=== PATIENT | female | born 1985 | race African-American/Black ===

== ENCOUNTER 2016-07-12 09:21 | Inpatient (IN) | payer OTHER ==
[~2016-07-12] VITALS: Ht 172.7 cm; Wt 113.8 kg
[~2016-07-12 09:21] MED LIST: BENZ1TAB PO; CHLO200T5 PO; CLOZ100 PO; DIPH50CA PO; DIVA250T PO; DIVA500T PO; DOCU100T9 PO; LEVO10%S PO; MIRA33504 PO; MIRTA15 PO; PRAZ2CAP PO; PROP20TA3 PO
[2016-07-12 09:27] VITALS: BP 112/75; PULSE 120; RESP 16; TEMP 98.7; O2SAT 98
[2016-07-12] MEDS ORDERED: OLANZapine ODT 10 MG TAB PO ONE (09:45)
--- NOTE | 2016-07-12 09:47 | PD ---
HPI Chief Complaint: Psychiatric Symptoms Time Seen by Provider: 09:31 Travel History International Travel<30 days: No Contact w/Intl Traveler<30days: No Traveled to known affect area: No History of Present Illness HPI Patient is a 31-year-old female with history of paranoid schizophrenia who presents the emergency department via EMS for increasing delusions. Patient states that she has been having increasing auditory hallucinations over the course the last week, particularly bad overnight. Voices are very clear command hallucinations that tell her to pick her face off and an attempt to kill herself. Patient has been scratching the right side of her face overnight and presents with excoriations. She is on multiple medications at her living facility, states she's been compliant with these but none of them are helping. Patient denies any homicidal ideations. No visual hallucinations. PFSH Past Medical History Heart Rhythm Problems: Yes Cancer: No (per last month) Cardiovascular Problems: No (per last month ) Diabetes: No (per last month ) Genitourinary: No Headaches: No (per last month) Musculoskeletal: No Neurologic: No Psychiatric: Yes Reproductive: No Respiratory: No Schizophrenia: Yes Seizures: No (per last month) Tetanus Vaccination: Unknown ?: Unknown Past Surgical History Other Surgery: No Social History Alcohol Use: No Tobacco Use: No Substance Use: No Allergies-Medications (Allergen,Severity, Reaction): Coded Allergies: No Known Allergies (Unverified , 07/12/16) Reported Meds & Prescriptions Reported Meds & Active Scripts Active Mirtazapine 15 Mg Tab 45 Mg PO HS 15 Days Propranolol (Propranolol HCl) 20 Mg Tab 20 Mg PO Q12HR [address] (Divalproex Sodium) 250 Mg Tabdr 250 Mg PO BID [address] (Divalproex Sodium) 500 Mg Tabdr 500 Mg PO BID 15 Days Diphenhydramine HCl 50 Mg Cap 50 Mg PO HS 15 Days Reported Clozaril (Clozapine) 100 Mg Tab 100 Mg PO BID Chlorpromazine (Chlorpromazine HCl) 200 Mg Tab 200 Mg PO BID (1200, 1600) Chlorpromazine (Chlorpromazine HCl) 200 Mg Tab 300 Mg PO BID (0800, 2000) Docusate Sodium 100 Mg Tab 200 Mg PO BID Prazosin (Prazosin HCl) 2 Mg Cap 2 Mg PO HS Miralax Powder (Polyethylene Glycol 3350 Powder) 17 Gm Powd 17 Gm PO DAILY Mix and dissolve one measuring cap-ful (17 grams) in water or juice. Benztropine (Benztropine Mesylate) 1 Mg Tab 1 Mg PO BID (0800,1600) Review of Systems ROS Limitations: Psychotic, Poor Historian Except as stated in HPI: all other systems reviewed are Neg Physical Exam Exam Limitations: Poor Historian, Psychotic Narrative GENERAL: After [place] female in no acute distress SKIN: Warm. Excoriations on the right side of the face. HEAD: Atraumatic. Normocephalic. EYES: Pupils equal and round. No scleral icterus. No injection or drainage. ENT: No nasal bleeding or discharge. Mucous membranes pink and moist. NECK: Supple CARDIOVASCULAR: Tachycardic with heart rate in the 110s to 120s, regular rhythm. No murmur appreciated. RESPIRATORY: No accessory muscle use. Clear to auscultation. Breath sounds equal bilaterally. GASTROINTESTINAL: Abdomen soft, non-tender, nondistended. MUSCULOSKELETAL: Moves all extremities normally NEUROLOGICAL: Awake and alert. Motor grossly within normal limits. Normal speech. PSYCHIATRIC: Blunted mood, poor eye contact. Obviously responding to internal stimuli, looking around the room. Speaks very softly. Admits to auditory hallucinations with demand hallucinations to cut and/or scrape off her face. Data Data Last Documented VS Vital Signs Date Time Temp Pulse Resp B/P Pulse Ox O2 Delivery O2 Flow Rate FiO2 07/12/16 10:10 98.9 126 18 120/81 100 Room Air Orders Complete Blood Count With Diff (07/12/16 09:31) Comprehensive Metabolic Panel (07/12/16 09:31) Valproic Acid (Depakene) (07/12/16 09:31) Psych Screen (07/12/16 09:31) Drug Screen, Random Urine (07/12/16 09:31) Ammonia (07/12/16 09:31) Olanzapine Odt (Zyprexa Zydis Odt) (07/12/16 09:45) Electrocardiogram (07/12/16 ) Diet Regular Basic (07/12/16 Lunch) Haloperidol Inj (Haldol Inj) (07/12/16 10:45) Lorazepam Inj (Ativan Inj) (07/12/16 10:45) Diphenhydramine Inj (Benadryl Inj) (07/12/16 10:45) Restraints Violent (07/12/16 10:49) Diet Regular Basic (07/12/16 Dinner) Labs Laboratory Tests Test 07/12/16 07/12/16 12:57 12:59 White Blood Count 7.0 TH/MM3 Red Blood Count 4.75 MIL/MM3 Hemoglobin 13.0 GM/DL Hematocrit 39.6 % Mean Corpuscular Volume 83.4 FL Mean Corpuscular Hemoglobin 27.4 PG Mean Corpuscular Hemoglobin 32.8 % Concent Red Cell Distribution Width 14.6 % Platelet Count 214 TH/MM3 Mean Platelet Volume 9.2 FL Neutrophils (%) (Auto) 60.5 % Lymphocytes (%) (Auto) 31.4 % Monocytes (%) (Auto) 7.7 % Eosinophils (%) (Auto) 0.0 % Basophils (%) (Auto) 0.4 % Neutrophils # (Auto) 4.2 TH/MM3 Lymphocytes # (Auto) 2.2 TH/MM3 Monocytes # (Auto) 0.5 TH/MM3 Eosinophils # (Auto) 0.0 TH/MM3 Basophils # (Auto) 0.0 TH/MM3 CBC Comment DIFF FINAL Differential Comment Sodium Level 141 MEQ/L Potassium Level 4.0 MEQ/L Chloride Level 106 MEQ/L Carbon Dioxide Level 24.4 MEQ/L Anion Gap 11 MEQ/L Blood Urea Nitrogen 3 MG/DL Creatinine 0.73 MG/DL Estimat Glomerular Filtration 113 ML/MIN Rate Random Glucose 76 MG/DL Calcium Level 9.1 MG/DL Total Bilirubin 0.3 MG/DL Aspartate Amino Transf 9 U/L (AST/SGOT) Alanine Aminotransferase 15 U/L (ALT/SGPT) Alkaline Phosphatase 73 U/L Total Protein 7.6 GM/DL Albumin 3.9 GM/DL Valproic Acid (Depakene) Level 59 MCG/ML Ammonia 32 MCMOL/L [facility] Medical Decision Making Medical Screen Exam Complete: Yes Emergency Medical Condition: Yes Medical Record Reviewed: Yes Differential Diagnosis 31-year-old female with history of paranoid schizophrenia here with complaint of increasing delusions, suicidal ideation. Differential includes schizophrenia , depression, suicidal ideation, substance induced mood disorder, medication nonadherence. Narrative Course Patient placed on monitor, IV established and blood obtained. Twelve-lead EKG shows sinus tachycardia, rate [address] or T-wave abnormalities and normal intervals. Patient has history of tachycardia and takes propranolol for this. Patient was placed under Martinez act by myself as she is made not to attempt to leave our emergency department. 10 mg oral zydis ordered. Patient took this but did not have any benefit and became agitated, combative, hitting herself and staff and was placed on physical and chemical restraint with Haldol 2 mg, Ativan 2 mg, Benadryl 50 mg IM. CBC, CMP, Depakote level, ammonia level obtained and unremarkable. Urine drugs remains pending. Patient had good response the above sedation was medically clear for psychiatric admission. Critical Care Narrative Aggregate critical care time was 45 minutes. Time to perform other separately billable procedures was not included in the critical care time. My time did not include minutes spent treating any other patients simultaneously or on activities that did not directly contribute to the patient's treatment. The services I provided to this patient were to treat and/or prevent clinically significant deterioration that could result in: Agitation, danger to self or others, need for chemical and physical restraint. I provided critical care services requiring my management, as noted below: Chart data review, documentation time, medication orders and management, vital sign assessments/reviewing monitor data, ordering and reviewing lab tests, ordering and interpreting/reviewing x-rays and diagnostic studies, care of the patient and discussion of the patient with the admitting physicians. Diagnosis Primary Impression: Schizophrenia Qualified Code: F20.0 - Paranoid schizophrenia Admitting Information Admitting Physician Requests: Admit Ana Rodriguez MD Jul 12, 2016 09:47
[2016-07-12 10:10] VITALS: BP 120/81; PULSE 126; RESP 18; TEMP 98.9; O2SAT 100
[2016-07-12] MEDS ORDERED: HALOPERIDOL LACTATE 5 MG/ML AMP IM ONE (10:45)
[2016-07-12] MEDS ORDERED: LORazepam 2 MG/ML VIAL IM ONE (10:45)
[2016-07-12] MEDS ORDERED: diphenhydrAMINE HCL 50 MG/ML VIAL IM ONE (10:45)
[2016-07-12] MEDS ORDERED: CLOZ100 PO (11:45)
[2016-07-12 13:13] LABS: AUTOMATED NEUTROPHIL # 4.2 TH/MM3 (1.8-7.7); BASOPHIL % 0.4 % (0.0-2.0); HEMATOCRIT 39.6 % (35.0-46.0); HEMO FLAGS DIFF FINAL; LYMPH % 31.4 % (9.0-44.0); LYMPHOCYTE # 2.2 TH/MM3 (1.0-4.8); MEAN CELL VOLUME 83.4 FL (80.0-100.0); MEAN CORPUSCULAR HEMOGLOBIN 27.4 PG (27.0-34.0); MEAN CORPUSCULAR HGB CONC 32.8 % (32.0-36.0); MONO % 7.7 % (0.0-8.0); NEUT % 60.5 % (16.0-70.0); PLATELET COUNT 214 TH/MM3 (150-450); RED BLOOD COUNT 4.75 MIL/MM3 (4.00-5.30); RED CELL DISTRIBUTION WIDTH 14.6 % (11.6-17.2)
[2016-07-12 13:28] LABS: AMPHETAMINE, URINE NEG (NEG); BARBITURATES, URINE NEG (NEG); COCAINE, URINE NEG (NEG)
[2016-07-12 13:38] LABS: ALT (GPT) 15 U/L (10-53); ANION GAP 11 MEQ/L (5-15); AST (GOT) 9 U/L (15-37); BICARBONATE 24.4 MEQ/L (21.0-32.0); BLOOD UREA NITROGEN 3 MG/DL (7-18); CHLORIDE 106 MEQ/L (98-107); GLOMERULAR FILTRATION RATE 113 ML/MIN (>89); SODIUM (NA) 141 MEQ/L (136-145)
[2016-07-12 13:40] LABS: ALKALINE PHOSPHATASE 73 U/L (45-117); TOTAL BILIRUBIN ADULT 0.3 MG/DL (0.2-1.0)
[2016-07-12] MEDS ORDERED: MAGNESIUM HYDROXIDE SUSP 30 ML CUP PO PRN (16:15)
[2016-07-12] MEDS ORDERED: ALUMINUM/MAGNESIUM/SIMETH 30 ML CUP PO PRN (16:15)
[2016-07-12] MEDS ORDERED: diphenhydrAMINE HCL 50 MG CAP - HS PRN PO (16:15)
--- NOTE | 2016-07-12 17:11 | EKG ---
Date Performed: 07/12/2016 Time Performed: 09:38:10 PTAGE: 31 years EKG: SINUS TACHYCARDIA NONSPECIFIC T-WAVE ABNORMALITY ABNORMAL RHYTHM ECG Compared to PREVIOUS TRACING , nonspecific T-wave changes are now present. PREVIOUS TRACIN04/14/20 16 10.41 DOCTOR: Moshe Smith Interpretating Date/Time 07/12/2016 17:11:05
[2016-07-12 18:29] VITALS: BP 127/93; PULSE 107; RESP 18; TEMP 98.6; O2SAT 96
[2016-07-12] MEDS: DIVALPROEX DR 500 MG TABEC PO SCH (20:09)
[2016-07-12] MEDS: REMOVE OLD NICOTINE PATCH T-DERMAL SCH (20:11)
[2016-07-12] MEDS ORDERED: diphenhydrAMINE HCL 50 MG/ML VIAL - HS PRN IM (20:45)
[2016-07-12] MEDS ORDERED: BENZTROPINE MESYLATE 1 MG TAB PO SCH (21:00)
[2016-07-12] MEDS ORDERED: MIRTAZAPINE 15 MG TAB PO SCH (21:00)
[2016-07-12] MEDS ORDERED: PROPRANOLOL HCL 20 MG TAB PO SCH (21:00)
[2016-07-12] MEDS ORDERED: ACETAMINOPHEN 325 MG TAB PO PRN (21:00)
[2016-07-12] MEDS ORDERED: DIVALPROEX SODIUM E.R. 250 MG TAB PO SCH (21:00)
[2016-07-12] MEDS ORDERED: DOCUSATE SODIUM 100 MG CAP PO SCH (21:00)
[2016-07-12] MEDS ORDERED: diphenhydrAMINE HCL 50 MG CAP PO SCH (21:00)
[2016-07-12] MEDS ORDERED: cloZAPine 100 MG TAB PO SCH (21:00)
[2016-07-12] MEDS ORDERED: PRAZOSIN HCL 2 MG CAP PO SCH (21:00)
[2016-07-12] MEDS ORDERED: DOCUSATE SODIUM 100 MG CAP PO ONE (21:15)
[2016-07-13] MEDS: LORazepam 1 MG TAB PO PRN ×2 (01:45→10:31)
[2016-07-13 06:09] VITALS: BP 118/77; PULSE 112; RESP 20; TEMP 98.7; O2SAT 97
[2016-07-13] MEDS ORDERED: BENZTROPINE MESYLATE 1 MG TAB PO SCH (08:00)
[2016-07-13] MEDS ORDERED: MAGNESIUM HYDROXIDE SUSP 30 ML CUP PO PRN (08:15)
[2016-07-13 08:30] LABS: ANION GAP 11 MEQ/L (5-15); CHLORIDE 106 MEQ/L (98-107); GLOMERULAR FILTRATION RATE 98 ML/MIN (>89); POTASSIUM 3.6 MEQ/L (3.5-5.1); SODIUM (NA) 141 MEQ/L (136-145)
[2016-07-13] MEDS: DIVALPROEX DR 500 MG TABEC PO SCH ×2 (08:34→20:13)
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
[2016-07-13] MEDS: BENZTROPINE MESYLATE 1 MG TAB PO SCH ×2 (08:38→20:11)
[2016-07-13] MEDS: POLYETHYLENE GLYCOL 17 GM PKG PO SCH (08:39)
[2016-07-13] MEDS: PROPRANOLOL HCL 20 MG TAB PO SCH ×2 (08:39→20:13)
[2016-07-13 08:55] LABS: BLOOD UREA NITROGEN 6 MG/DL (7-18); HDL CHOLESTEROL 57.1 MG/DL (40.0-60.0); LDL CHOLESTEROL 36 MG/DL (0-99)
[2016-07-13] MEDS: NICOTINE 21 MG/24 HR PATCH T-DERMAL SCH (08:55)
[2016-07-13] MEDS: DOCUSATE SODIUM 100 MG CAP PO SCH ×2 (09:00→20:12)
[2016-07-13] MEDS ORDERED: DIVALPROEX DR 500 MG TABEC PO SCH ×2 (09:00)
[2016-07-13] MEDS ORDERED: POLYETHYLENE GLYCOL 17 GM PKG PO SCH (09:00)
[2016-07-13] MEDS ORDERED: DOCUSATE SODIUM 100 MG CAP PO SCH (09:00)
[2016-07-13] MEDS ORDERED: DIVALPROEX SODIUM DELAYED RELEASE 250 MG TAB PO SCH ×2 (09:00)
[2016-07-13] MEDS ORDERED: DIVALPROEX SODIUM DELAYED RELEASE 250 MG TAB PO ONE (09:00)
[2016-07-13] MEDS: cloZAPine 100 MG TAB PO SCH ×2 (09:40→20:12)
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
[2016-07-13 12:17] LABS: BASOPHIL % 0.5 % (0.0-2.0); HEMATOCRIT 38.3 % (35.0-46.0); HEMO FLAGS DIFF FINAL; LYMPH % 45.9 % (9.0-44.0); LYMPHOCYTE # 3.2 TH/MM3 (1.0-4.8); MEAN CELL VOLUME 84.1 FL (80.0-100.0); MEAN CORPUSCULAR HEMOGLOBIN 27.3 PG (27.0-34.0); MEAN CORPUSCULAR HGB CONC 32.5 % (32.0-36.0); MONO % 9.5 % (0.0-8.0); NEUT % 44.1 % (16.0-70.0); PLATELET COUNT 213 TH/MM3 (150-450); RED BLOOD COUNT 4.56 MIL/MM3 (4.00-5.30); RED CELL DISTRIBUTION WIDTH 14.9 % (11.6-17.2); WHITE BLOOD COUNT 6.9 TH/MM3 (4.0-11.0)
[2016-07-13 13:44] LABS: HEMOGLOBIN A1a 1.2 %; HEMOGLOBIN A1b 0.9 %; HEMOGLOBIN Ao 86.2 %; HEMOGLOBIN F 1.1 %; HEMOGLOBIN LA1C 1.9 %; HEMOGLOBIN P3 3.4 %
[2016-07-13 15:23] VITALS: BP 124/75; PULSE 96; RESP 18; TEMP 98.1; O2SAT 98
--- NOTE | 2016-07-13 17:15 | HHI.PR ---
Blank section for building attempted to see patient for consult- she was unavailable as she was in the shower- plan to see tomorrow. Tachycardia Continue propranolol ordered echocardiogram due to long standing tachycardia to r/o tachycardia induced cardiomyopathy Discussed with nursing Written by Harriett العلي, acting as scribe for Dr. Beverly on 07/13/16 at 17: 15. (Harriett العلي) Harriett العلي Jul 13, 2016 17:15 Mayito Beverly DO Jul 14, 2016 00:14
[2016-07-13] MEDS: MIRTAZAPINE 15 MG TAB PO SCH (20:12)
[2016-07-13] MEDS: diphenhydrAMINE HCL 50 MG CAP PO SCH (20:12)
[2016-07-13] MEDS: REMOVE OLD NICOTINE PATCH T-DERMAL SCH (20:17)
[2016-07-13] MEDS ORDERED: PRAZOSIN HCL 2 MG CAP PO SCH (21:00)
[2016-07-14 06:53] VITALS: BP 119/78; PULSE 99; RESP 17; TEMP 98.1; O2SAT 99
[2016-07-14 07:51] LABS: AUTOMATED NEUTROPHIL # 2.2 TH/MM3 (1.8-7.7); BASOPHIL % 0.2 % (0.0-2.0); HEMATOCRIT 35.2 % (35.0-46.0); HEMO FLAGS DIFF FINAL; LYMPHOCYTE # 3.8 TH/MM3 (1.0-4.8); MEAN CELL VOLUME 83.6 FL (80.0-100.0); MEAN CORPUSCULAR HEMOGLOBIN 26.7 PG (27.0-34.0); MEAN CORPUSCULAR HGB CONC 31.9 % (32.0-36.0); MONO % 10.7 % (0.0-8.0); NEUT % 33.1 % (16.0-70.0); PLATELET COUNT 211 TH/MM3 (150-450); RED CELL DISTRIBUTION WIDTH 14.4 % (11.6-17.2); WHITE BLOOD COUNT 6.8 TH/MM3 (4.0-11.0)
[2016-07-14] MEDS: POLYETHYLENE GLYCOL 17 GM PKG PO SCH ×2 (08:07→08:12)
[2016-07-14] MEDS: PROPRANOLOL HCL 20 MG TAB PO SCH ×2 (08:07→20:09)
[2016-07-14] MEDS: BENZTROPINE MESYLATE 1 MG TAB PO SCH ×2 (08:07→20:08)
[2016-07-14] MEDS: DOCUSATE SODIUM 100 MG CAP PO SCH ×2 (08:08→20:09)
[2016-07-14] MEDS: cloZAPine 100 MG TAB PO SCH ×2 (08:08→20:08)
[2016-07-14] MEDS: NICOTINE 21 MG/24 HR PATCH T-DERMAL SCH (08:09)
[2016-07-14] MEDS: DIVALPROEX SODIUM DELAYED RELEASE 250 MG TAB PO SCH (08:10)
[2016-07-14 08:28] LABS: FREE T4 0.84 NG/DL (0.76-1.46)
--- NOTE | 2016-07-14 12:10 | HHI.PYPN ---
Subjective Remarks Patient appears to have a very restricted affect and is completely nonverbal with this physician. She appears to be responding to internal stimuli. Due to her history of self-injurious behavior, this physician is concerned about her potential for self-harm at this point. Review of Systems Except as stated in HPI: all other systems reviewed are Neg Objective Alert: Yes [place]: Person Mood: Calm Affect: Restricted Memory Intact: Immediate Hallucinations: Auditory Delusions: Yes Delusion Type: Paranoid Suicidal: Ideation Homicidal: Ideation Insight/Judgement Significantly impaired. Labs Test 07/14/16 07:09 White Blood Count 6.8 TH/MM3 Red Blood Count 4.20 MIL/MM3 Hemoglobin 11.2 GM/DL Hematocrit 35.2 % Mean Corpuscular Volume 83.6 FL Mean Corpuscular Hemoglobin 26.7 PG Mean Corpuscular Hemoglobin 31.9 % Concent Red Cell Distribution Width 14.4 % Platelet Count 211 TH/MM3 Mean Platelet Volume 9.1 FL Neutrophils (%) (Auto) 33.1 % Lymphocytes (%) (Auto) 56.0 % Monocytes (%) (Auto) 10.7 % Eosinophils (%) (Auto) 0.0 % Basophils (%) (Auto) 0.2 % Neutrophils # (Auto) 2.2 TH/MM3 Lymphocytes # (Auto) 3.8 TH/MM3 Monocytes # (Auto) 0.7 TH/MM3 Eosinophils # (Auto) 0.0 TH/MM3 Basophils # (Auto) 0.0 TH/MM3 CBC Comment DIFF FINAL Differential Comment Free Thyroxine 0.84 NG/DL Thyroid Stimulating Hormone 1.010 uIU/ML 3rd Gen Vitals/IOs Vital Signs Date Time Temp Pulse Resp B/P Pulse Ox O2 Delivery O2 Flow Rate FiO2 07/14/16 06:53 98.1 99 17 119/78 99 07/12/16 10:10 Room Air Assessment & Plan Problem List: (1) Paranoid type schizophrenia, chronic state with acute exacerbation ICD Code: F20.0 Assessment & Plan 1 to 2 weeks to stabilize the patient on antipsychotic medication. Estimated LOS: days Justification for Cont. Inpt. Does not appear to have any significant ability to care for herself and has a history of serious self-injurious behavior. Appears actively psychotic with auditory hallucinations Request HC Surrog/Guard Advoc?: No Leo William MD Jul 14, 2016 12:10
--- NOTE | 2016-07-14 14:56 | PD.CONS ---
HPI Service [facility] Consult Requested By Dr. William Reason for Consult medical management Primary Care Physician No Primary Care Physician Diagnoses: History of Present Illness This is a 31-year-old female patient with a past medical history which includes schizophrenia. Patient is currently admitted inpatient psychiatric services and we have been consulted for assistance with management of medical condition. Patient has multiple healing abrasions to right side of face reports this is a self-inflicted wound from scratching. Patient reports minimal discomfort but denies pain. No drainage or erythema noted at this time. Patient reports she is, "struggling," and points to her head. Patient denies shortness of breath chest pain nausea vomiting diarrhea constipation fevers or chills. Review of Systems Except as stated in HPI: all other systems reviewed are Neg Past Family Social History Allergies: Coded Allergies: No Known Allergies (Unverified , 07/12/16) Past Medical History Schizophrenia Past Surgical History Denies surgical history Reported Medications Mirtazapine 15 Mg Tab 45 Mg PO HS 15 Days Propranolol (Propranolol HCl) 20 Mg Tab 20 Mg PO Q12HR [address] (Divalproex Sodium) 250 Mg Tabdr 250 Mg PO BID [address] (Divalproex Sodium) 500 Mg Tabdr 500 Mg PO BID 15 Days Diphenhydramine HCl 50 Mg Cap 50 Mg PO HS 15 Days Clozaril (Clozapine) 100 Mg Tab 100 Mg PO BID Chlorpromazine (Chlorpromazine HCl) 200 Mg Tab 200 Mg PO BID (1200, 1600) Chlorpromazine (Chlorpromazine HCl) 200 Mg Tab 300 Mg PO BID (0800, 2000) Docusate Sodium 100 Mg Tab 200 Mg PO BID Prazosin (Prazosin HCl) 2 Mg Cap 2 Mg PO HS Miralax Powder (Polyethylene Glycol 3350 Powder) 17 Gm Powd 17 Gm PO DAILY Mix and dissolve one measuring cap-ful (17 grams) in water or juice. Benztropine (Benztropine Mesylate) 1 Mg Tab 1 Mg PO BID (0800,1600) Active Ordered Medications Current Medications Medications (Trade) Dose Ordered Sig/Jae Route Start Time Stop Time Status Last Admin (Ativan) 1 mg Q6H PRN PO 07/12/16 16:15 07/13/16 10:31 (Ativan Inj) 1 mg Q6H PRN IM 07/12/16 16:15 (Habitrol 21 Mg Patch.24 Hr) 1 patch DAILY T-DERMAL 07/13/16 09:00 07/13/16 08:55 Miscellaneous Information 1 HS T-DERMAL 07/12/16 21:00 07/13/16 20:17 (Thorazine) 300 mg BID@08,20 PO 07/12/16 21:30 07/14/16 08:07 (Thorazine) 200 mg BID@12,16 PO 07/13/16 12:00 07/14/16 11:50 (Tylenol) 650 mg Q4H PRN PO 07/13/16 08:15 (Milk Of Magnesia Liq) 30 ml DAILY PRN PO 07/13/16 08:15 (Mag-Al Plus Susp Liq) 30 ml Q6H PRN PO 07/13/16 08:15 (Cogentin) 1 mg BID PO 07/13/16 09:00 07/14/16 08:07 (Benadryl) 50 mg HS PO 07/13/16 21:00 07/13/16 20:12 (Remeron) 45 mg HS PO 07/13/16 21:00 07/13/16 20:12 (Miralax) 17 gm DAILY PO 07/13/16 09:00 07/13/16 08:39 (Inderal) 20 mg Q12HR PO 07/13/16 09:00 07/14/16 08:07 (Colace) 200 mg BID PO 07/13/16 09:00 07/14/16 08:08 (Timi Rubalcava) 750 mg DAILY PO 07/14/16 09:00 07/14/16 08:10 (Clozaril) 100 mg DAILY PO 07/13/16 09:00 07/14/16 08:08 (Clozaril) 150 mg HS PO 07/13/16 21:00 07/13/16 20:12 (Timi Rubalcava) 1,000 mg HS PO 07/13/16 21:00 07/13/16 20:13 Family History Reports family history of diabetes and hypertension Social History Social History Smokes two packs cigarettes per day Denies EtOH use or illicit drug use Physical Exam Vital Signs Vital Signs Date Time Temp Pulse Resp B/P Pulse Ox O2 Delivery O2 Flow Rate FiO2 07/14/16 06:53 98.1 99 17 119/78 99 07/13/16 15:23 98.1 96 18 124/75 98 Physical Exam GENERAL: This is a well-nourished, well-developed patient, in no apparent distress, with flat affect. SKIN: Multiple healing abrasions to right side of face EYES: Extraocular motions intact. No scleral icterus. No injection or drainage. CARDIOVASCULAR: Tachycardic without murmurs, gallops, or rubs. RESPIRATORY: Clear to auscultation. Breath sounds equal bilaterally. No wheezes , rales, or rhonchi. GASTROINTESTINAL: Abdomen soft, non-tender, nondistended. No hepato-splenomegaly , or palpable masses. No guarding. Normoactive bowel sounds 4 quadrants MUSCULOSKELETAL: Extremities without clubbing, cyanosis, or edema. No joint tenderness, effusion, or edema noted. No calf tenderness. Negative Homans sign bilaterally. NEUROLOGICAL: Awake and alert. Motor and sensory grossly within normal limits. Five out of 5 muscle strength in all muscle groups. Soft whisper-like speech. Laboratory Laboratory Tests Test 07/14/16 07:09 White Blood Count 6.8 Red Blood Count 4.20 Hemoglobin 11.2 Hematocrit 35.2 Mean Corpuscular Volume 83.6 Mean Corpuscular Hemoglobin 26.7 Mean Corpuscular Hemoglobin 31.9 Concent Red Cell Distribution Width 14.4 Platelet Count 211 Mean Platelet Volume 9.1 Neutrophils (%) (Auto) 33.1 Lymphocytes (%) (Auto) 56.0 Monocytes (%) (Auto) 10.7 Eosinophils (%) (Auto) 0.0 Basophils (%) (Auto) 0.2 Neutrophils # (Auto) 2.2 Lymphocytes # (Auto) 3.8 Monocytes # (Auto) 0.7 Eosinophils # (Auto) 0.0 Basophils # (Auto) 0.0 CBC Comment DIFF FINAL Differential Comment Free Thyroxine 0.84 Thyroid Stimulating Hormone 1.010 3rd Gen Result Diagram: 07/14/16 0709 07/13/16 0728 Assessment and Plan Assessment and Plan This is a 31-year-old female patient with past medical history of schizophrenia currently admitted inpatient psychiatric services. Been consulted for assistance with dyspepsia and self injury to face Schizophrenia -Management per psychiatric services Abrasion right side of face- self-inflicted -No signs of infection at this time - keep area clean and dry - apply Bactroban BID Tachycardic- long standing - Encourage by mouth fluid intake - continue propranolol - Echocardiogram to evaluate for tachycardia-induced cardiomyopathy Tobacco abuse -Patient counseled on health risk of tobacco abuse encouraged to abstain DVT prophylaxis patient is ambulatory Thank you for the consultation and for allowing us to participate in care of this patient Discussed plan of care with patient and nursing Written by Harriett العلي, acting as scribe for Dr. Beverly on 07/14/16 at 14: 56. All or portions of this note were transcribed by scribe DOMENICO Bolaños. I, Dr. Anthony Beverly personally performed the history, physical exam, and medical decision making; and confirmed the accuracy of the information in the transcribed note. Authenticated by Dr. Anthony Beverly on 07/14/16 at 14:56. Harriett العلي Jul 14, 2016 14:56 Mayito Beverly DO Jul 14, 2016 23:40
[2016-07-14] MEDS: LORazepam 1 MG TAB PO PRN (17:45)
[2016-07-14 18:02] VITALS: BP 100/70; PULSE 98; RESP 18; TEMP 98.4; O2SAT 100
[2016-07-14] MEDS ORDERED: diphenhydrAMINE HCL 50 MG/ML VIAL ONE (18:34)
[2016-07-14] MEDS ORDERED: ZIPRASIDONE MESYLATE 20 MG VIAL IM ONE ×2 (18:34→18:45)
[2016-07-14] MEDS ORDERED: diphenhydrAMINE HCL 50 MG/ML VIAL IM ONE (18:45)
[2016-07-14] MEDS ORDERED: LORazepam 2 MG/ML VIAL IM ONE (18:45)
[2016-07-14 19:45] VITALS: BP 116/73; PULSE 91; RESP 18; TEMP 98.5; O2SAT 100
[2016-07-14] MEDS: DIVALPROEX DR 500 MG TABEC PO SCH (20:08)
[2016-07-14] MEDS: diphenhydrAMINE HCL 50 MG CAP PO SCH (20:09)
[2016-07-14] MEDS: MIRTAZAPINE 15 MG TAB PO SCH (20:09)
[2016-07-14] MEDS: REMOVE OLD NICOTINE PATCH T-DERMAL SCH (21:00)
--- NOTE | 2016-07-14 21:00 | RADRPT ---
EXAM DATE/TIME: 07/14/2016 20:48 [facility] COMPARISON: No previous studies available for comparison. INDICATIONS : Hit forehead against wall; altered mental status. RADIATION DOSE: 50.92 CTDIvol (mGy) MEDICAL HISTORY : Seizures. Cardiovascular disease Carcinoma, not otherwise specified.Schizophrenia. SURGICAL HISTORY : None. ENCOUNTER: Initial ACUITY: 1 day PAIN SCALE: 6/10 LOCATION: cranial TECHNIQUE: Multiple contiguous axial images were obtained of the head. Using automated exposure control and adj ustment of the mA and/or kV according to patient size, radiation dose was kept as low as reasonably a chievable to obtain optimal diagnostic quality images. FINDINGS: CEREBRUM: The ventricles are normal for age. No evidence of midline shift, mass lesion, hemorrhage or acute in farction. No extra-axial fluid collections are seen. POSTERIOR FOSSA: The cerebellum and brainstem are intact. The 4th ventricle is midline. The cerebellopontine angle i s unremarkable. EXTRACRANIAL: The visualized portion of the orbits is intact. Right foraminal scalp contusion. SKULL: The calvaria is intact. No evidence of skull fracture. CONCLUSION: 1. No intraparenchymal hemorrhage. 2. Right frontal scalp contusion. Juan Burrows MD on July 14, 2016 at 20:57 Board Certified Radiologist. This report was verified electronically.
[2016-07-15] MEDS: LORazepam 1 MG TAB PO PRN (01:55)
[2016-07-15 05:16] VITALS: BP 117/73; PULSE 101; RESP 18; TEMP 98.1; O2SAT 100
[2016-07-15] MEDS: POLYETHYLENE GLYCOL 17 GM PKG PO SCH (08:28)
[2016-07-15] MEDS: DOCUSATE SODIUM 100 MG CAP PO SCH ×2 (08:28→21:10)
[2016-07-15] MEDS: BENZTROPINE MESYLATE 1 MG TAB PO SCH ×2 (08:29→21:12)
[2016-07-15] MEDS: cloZAPine 100 MG TAB PO SCH ×2 (08:29→21:11)
[2016-07-15] MEDS: PROPRANOLOL HCL 20 MG TAB PO SCH ×2 (08:29→21:11)
[2016-07-15] MEDS: DIVALPROEX SODIUM DELAYED RELEASE 250 MG TAB PO SCH (08:29)
[2016-07-15] MEDS: NICOTINE 21 MG/24 HR PATCH T-DERMAL SCH (08:37)
--- NOTE | 2016-07-15 11:28 | HHI.PYPN ---
Subjective Remarks Patient seen and examined with nurse. Chart reviewed. Case discussed with nursing staff reports patient had an episode of self injury by banging her head last night. Psychiatrist on-call ordered a stat head CT as well as Geodon, Ativan and Benadryl for the management of her agitation. Head CT was negative for intracranial process but she did suffer a scalp contusion. On my examination today, patient presents as downcast and generally dysphoric. She is somewhat sedated this morning, perhaps due to the ETO that she received overnight, but says in general that she has been having difficulty with sleeping and her command auditory hallucinations to self injure are worse at night. She endorses suicidal ideation both in response to command auditory hallucinations and also because she says that she is "scared to go back into the community." She denies any suicidal plan or intent at this time. She says that she self injured last night in response to the command auditory hallucinations. She denies side effects from psychotropics. Review of Systems Other Besides some slight discomfort at the mu-ism where she self injured, no other physical complaints today. Objective Alert: Yes [place]: Person, Place (at least) Mood: Depressed Affect: Restricted (dysphoric) Memory Intact: Comment (seems intact on clinical exam) Hallucinations: Auditory (ongoing command auditory hallucinations to self injure), Other (denies any command auditory hallucinations to hurt others.) Delusions: No Delusion Type: Other (no delusional material) Suicidal: Ideation (endorses suicidal ideation but no plan or intent) Homicidal: Ideation (denies homicidal ideation) Insight/Judgement Fair to poor at best Remarks No abnormal motor movements noted. Thought process fairly linear. Speech is soft spoken but otherwise within normal limits for rate and tone. Contusion on the forehead has been bandaged. Old self injury scars on the face are noted. Labs Labs reviewed. No new labs. I note that a beta hCG was not checked at admission nor was an ED [id number] test checked. ANC remains adequate for clozapine therapy. Vitals/IOs Vital Signs Date Time Temp Pulse Resp B/P Pulse Ox O2 Delivery O2 Flow Rate FiO2 07/15/16 05:16 98.1 101 18 117/73 100 07/12/16 10:10 Room Air Assessment & Plan Problem List: (1) Paranoid type schizophrenia, chronic state with acute exacerbation ICD Code: F20.0 Assessment & Plan Titrate nighttime dose of clozapine to target command auditory hallucinations and also to assist with sleep. Continue Thorazine, Depakote and Remeron as ordered. Check a stat beta hCG. I have adjusted patient's level of observation so that she is to remain in line of sight of staff at all times. In the event of any sort of behavioral deterioration or escalation she is to be placed with a one-to-one sitter immediately. Appreciate hospitalist analysis consultant input, and I will defer to them regarding any further management of the scalp contusion. Continue other medications and care as ordered. Justification for Cont. Inpt. Severe impairments in safety. Impairments in reality construction. Medication changes in process. High risk for decompensation in a lower level of care. Discharge Planning Pending psychiatric stabilization. The patient seems to say that she doesn't feel comfortable in her current placement, but I am unsure if a different assisted living facility would be likely to accept her case given her history of self-injurious behavior. Patient would understandably prefer not to return to the [facility], although this may be necessary if we cannot control her psychiatric symptomatology acutely. Dr. Bee will present the case to a [place] act court today as he initiated the petition for involuntary psychiatric hospitalization. Request HC Surrog/Guard Advoc?: No Moshe Mcclendon MD Jul 15, 2016 11:28
--- NOTE | 2016-07-15 15:59 | HHI.PR ---
Subjective Remarks Follow-up abrasion self injury, tachycardia, tobacco abuse. Patient seen in inpatient psychiatric day room and appears withdrawn with soft speech. Patient has new open abrasion right side of forehead. Per tech patient hit head up against wall in her room last night. Patient intact denies loss of consciousness. Patient denies headache or visual changes at this time. CT scan reviewed and reveals no intra-parenchymal hemorrhage right frontal scalp contusion. Patient offers no complaints at this time. Denies chest pain palpitations shortness of breath nausea vomiting diarrhea constipation fevers or chills Objective Vitals Vital Signs Date Time Temp Pulse Resp B/P Pulse Ox O2 Delivery O2 Flow Rate FiO2 07/15/16 05:16 98.1 101 18 117/73 100 07/14/16 19:45 98.5 91 18 116/73 100 07/14/16 18:02 98.4 98 18 100/70 100 Result Diagram: 07/14/16 0709 07/13/16 0728 Imaging Last Impressions Head CT 07/14/16 0000 Signed Impressions: Service Date/Time: Thursday, July 14, 2016 20:48 - CONCLUSION: 1. No intraparenchymal hemorrhage. 2. Right frontal scalp contusion. Juan Burrows MD Objective Remarks GENERAL: This is a well-nourished, well-developed patient, in no apparent distress, with flat affect. SKIN: Multiple healing abrasions to right side of face, new open abrasion right side of forehead EYES: Extraocular motions intact. No scleral icterus. No injection or drainage. CARDIOVASCULAR: Regular rate and rhythm without murmurs, gallops, or rubs. RESPIRATORY: Clear to auscultation. Breath sounds equal bilaterally. No wheezes , rales, or rhonchi. GASTROINTESTINAL: Abdomen soft, non-tender, nondistended. No hepato-splenomegaly , or palpable masses. No guarding. Normoactive bowel sounds 4 quadrants MUSCULOSKELETAL: Extremities without clubbing, cyanosis, or edema. No joint tenderness, effusion, or edema noted. No calf tenderness. Negative Homans sign bilaterally. NEUROLOGICAL: Awake and alert. Motor and sensory grossly within normal limits. Five out of 5 muscle strength in all muscle groups. Soft whisper-like speech. A/P Assessment and Plan This is a 31-year-old female patient with past medical history of schizophrenia currently admitted inpatient psychiatric services. Been consulted for assistance with self injury to face Schizophrenia -Management per psychiatric services Abrasion right side of face- self-inflicted Patient has new open abrasion right side of forehead. Per [facility] patient hit head up against wall in her room last night (07/14/16) -CT scan reviewed and reveals no intra-parenchymal hemorrhage right frontal scalp contusion. -No signs of infection at this time - keep areas clean and dry - apply Bactroban BID Tachycardic- long standing - Encourage by mouth fluid intake - continue propranolol - Echocardiogram to evaluate for tachycardia-induced cardiomyopathy- pending - EKG 07/16/11 shows SR HR 88 Tobacco abuse -Patient counseled on health risk of tobacco abuse encouraged to abstain DVT prophylaxis patient is ambulatory Discussed plan of care with patient and nursing Written by Harriett العلي, acting as scribe for Dr. Noriega on 07/15/16 at 16:03. Attending Statement All or portions of this note were transcribed by scribe Harriett العلي. I, Dr. Johnny Timmons personally performed the history, physical exam, and medical decision making; and confirmed the accuracy of the information in the transcribed note. Authenticated by Dr. Johnny Timmons on 07/21/16 at 08:33. Harriett العلي Jul 15, 2016 15:59 Johnny Tucker MD Jul 21, 2016 08:33
[2016-07-15 18:14] VITALS: BP 117/76; PULSE 104; RESP 17; TEMP 98.3; O2SAT 99
[2016-07-15] MEDS: diphenhydrAMINE HCL 50 MG CAP PO SCH (21:11)
[2016-07-15] MEDS: DIVALPROEX DR 500 MG TABEC PO SCH (21:11)
[2016-07-15] MEDS: MIRTAZAPINE 15 MG TAB PO SCH (21:12)
[2016-07-15] MEDS: MUPIROCIN 2% OINT 22 GM TUBE TOPICAL SCH (22:00)
[2016-07-16] MEDS: MUPIROCIN 2% OINT 22 GM TUBE TOPICAL SCH ×3 (05:16→22:00)
[2016-07-16 06:04] VITALS: BP 114/83; PULSE 91; RESP 18; TEMP 98.2; O2SAT 100
[2016-07-16] MEDS: POLYETHYLENE GLYCOL 17 GM PKG PO SCH ×2 (09:00→09:07)
[2016-07-16] MEDS: PROPRANOLOL HCL 20 MG TAB PO SCH ×2 (09:07→20:08)
[2016-07-16] MEDS: DIVALPROEX SODIUM DELAYED RELEASE 250 MG TAB PO SCH (09:07)
[2016-07-16] MEDS: cloZAPine 100 MG TAB PO SCH ×2 (09:07→20:09)
[2016-07-16] MEDS: DOCUSATE SODIUM 100 MG CAP PO SCH ×2 (09:08→20:08)
[2016-07-16] MEDS: BENZTROPINE MESYLATE 1 MG TAB PO SCH ×2 (09:08→20:08)
--- NOTE | 2016-07-16 11:21 | HHI.PYPN ---
Subjective Remarks Patient seen and examined with counselor and occupational therapist. Chart reviewed. Case discussed with counselor, nursing staff and occupational therapist in treatment team. Per nursing staff, patient is somewhat calmer and was asking about her medications in an appropriate fashion. Per occupational therapist, patient has been outside for some groups. On my examination today, I find the patient sitting in the day area, dozing. I do note that she has a gown that she is using under her mouth as a towel, and she does complain of some sialorrhea. On my examination today, the patient reports that she feels depressed. She does indeed appear fairly downcast. She notes that she is experiencing ongoing CAH to self-injure, presently unchanged in intensity versus yesterday. She endorses suicidal ideation, is noncommittal about plan/ intent, and cannot contract for safety at this time. I have immediately notified nursing staff and placed the patient on 1:1 observation. Besides the sialorrhea, no side effects from medications. Review of Systems Other Except as above, no physical complaints. Objective Alert: Yes [place]: Person, Place (at least) Mood: Depressed Affect: Restricted (quite dysphoric) Memory Intact: Comment (seems intact on clinical exam) Hallucinations: Auditory (command auditory hallucinations to self injure), Other (No CAH to hurt others) Delusions: No Delusion Type: Other (no delusional material) Suicidal: Ideation (endorses suicidal ideation and cannot contract for safety at this time.) Homicidal: Ideation (denies homicidal ideation) Insight/Judgement Poor Remarks No abnormal motor movements noted. TP linear. Speech somewhat slow with increased speech latency. Labs Test 07/15/16 14:06 Beta HCG, Qualitative LESS THAN 1 MIU/ML Labs reviewed. Echocardiogram results noted. EF wnl. Vitals/IOs Vital Signs Date Time Temp Pulse Resp B/P Pulse Ox O2 Delivery O2 Flow Rate FiO2 07/16/16 06:04 98.2 91 18 114/83 100 07/12/16 10:10 Room Air Assessment & Plan Problem List: (1) Paranoid type schizophrenia, chronic state with acute exacerbation ICD Code: F20.0 Assessment & Plan Ongoing severe decompensation of patient's primary psychotic disorder. Patient does have some sialorrhea but is otherwise tolerating clozapine well without side effects, nor is there any evidence of cardiomyopathy on echo. Although patient already has significant psychotropic medication burden, severity of patient's current psychiatric symptomatology suggests ongoing titration of medications is necessary. I will titrate patient's clozapine to target psychotic symptoms. If sialorrhea worsens, may need to add glycopyrrolate. Could also consider adjusting patient's antidepressant to target depressive symptomatology. Continue 1:1 for safety and reassess need for this tomorrow. Hospitalist consultation noted and appreciated. Continue other medications and care as ordered. Justification for Cont. Inpt. Grave impairments in safety. Impairment in reality construction. Medication changes requiring active monitoring. Very high risk for decompensation in a less restrictive environment. Discharge Planning Pending psychiatric stabilization. In consultation with the patient and the treatment team, we are all in agreement that transfer to [facility] may be necessary, and I will initiate referral now. Request HC Surrog/Guard Advoc?: No Moshe Mcclendon MD Jul 16, 2016 11:21
--- NOTE | 2016-07-16 12:41 | EC ---
Study Study Date:07/14/2016 STUDY CONCLUSIONS SUMMARY LEFT VENTRICLE: The cavity size was normal. Wall thickness was at the upper limits of normal. Systolic function was normal. The estimated ejection fraction was in the range of 60% to 65%. Wall motion was normal; there were no regional wall motion abnormalities. If LV function is below 40, please consider prescribing an ACEI or ARB or document rationale for non-use. PROCEDURE DATA STUDY STATUS: Elective. Procedure: Transthoracic echocardiography. Image quality was good. Scanning was performed from the parasternal, apical, and subcostal acoustic windows. Study completion: The patient tolerated the procedure well. Transthoracic echocardiography. M-mode, complete 2D, complete spectral Doppler, and color Doppler. Height: Height: 68in. Weight: Weight: 212.6lb. Body mass index: BMI: 32.4kg/m^2. Body surface area: BSA: 2.1m^2. Patient status: Inpatient. CARDIAC ANATOMY LEFT VENTRICLE: The cavity size was normal. Wall thickness was at the upper limits of normal. Systolic function was normal. The estimated ejection fraction was in the range of 60% to 65%. Wall motion was normal; there were no regional wall motion abnormalities. Possible diastolic dysfunction, although unable to determine stage. AORTIC VALVE: The valve appears to be grossly normal. Probably trileaflet. Doppler: There was no stenosis. No significant regurgitation. Valve area: 2.82cm^2 (Vmax). Indexed valve area: 1.34cm^2/m^2 (Vmax). MITRAL VALVE: The valve appears to be grossly normal. Doppler: There was no evidence for stenosis. No significant regurgitation. Valve area by pressure half-time: 6.67cm^2. Indexed valve area by pressure half-time: 3.18cm^2/m^2. Peak gradient: 2mm Hg (D). LEFT ATRIUM: The atrium was normal in size. ATRIAL SEPTUM: No defect or patent foramen ovale was identified. RIGHT VENTRICLE: The cavity size was normal. Systolic function was normal. PULMONIC VALVE: Not well visualized. Doppler: There was no evidence for stenosis. No significant regurgitation. TRICUSPID VALVE: The valve appears to be grossly normal. Doppler: There was no evidence for stenosis. No significant regurgitation. PERICARDIUM: There was no pericardial effusion. Patient weight: 212.6lb _Ejection fraction:_ 65-75% _Fractional shortening:_ 32% up to 5Kg 5-11.5Kg 11.6-22.9Kg 23-45Kg 45-57Kg Aortic Root 7-13 <17 13-22 17-27 17-27 LA diam 6-13 <23 24-38 33-47 37-40 RVID 10-17 7-15 7-15 7-18 8-17 LVIDd 12-22 <32 24-38 33-47 37-40 LVPW 2-4 3-6 5-7 6-8 7-8 IVS 2-4 3-6 5-7 6-8 7-8 BASIC MEASUREMENTS ADULT NORMAL Left ventricle LV internal dimension, ED, chordal *37.1 mm 43-52 level, PLAX LV internal dimension, ES, chordal 25.4 mm 23-38 level, PLAX Fractional shortening, chordal level, 32 % >29 PLAX LV posterior wall thickness, ED 11.6 mm IVS/LVPW ratio, ED 1.01 <1.3 Ventricular septum Septal thickness, ED 11.7 mm Aortic valve Leaflet separation 23 mm 15-26 Aorta Root diameter, ED 34 mm Left atrium Anterior-posterior dimension 27 mm Anterior-posterior dimension index 1.29 cm/m^2 <2.2 BASIC MEASUREMENTS ADULT NORMAL Aortic valve Leaflet separation 23 mm 15-26 Aorta Root diameter, ED 31 mm 20-37 DOPPLER MEASUREMENTS ADULT NORMAL Aortic valve Peak velocity, S 93.7 cm/s Valve area, Vmax 2.82 cm^2 Valve area index, Vmax 1.34 cm^2/m^2 Mitral valve Peak E-wave velocity 71.1 cm/s Peak A-wave velocity 67.1 cm/s Pressure half-time 33 ms Peak gradient, D 2 mm Hg Peak E/A ratio 1.1 Valve area, pressure half-time 6.67 cm^2 Valve area index, pressure half-time 3.18 cm^2/m^2 Pulmonic valve Peak velocity, S 67.9 cm/s LEGEND: Mean values are shown as u=mean value. Asterisk (*) quiroz values outside specified normal range. Prepared and signed by Senthil Golden [id number]
[2016-07-16 17:49] VITALS: BP 117/72; PULSE 99; RESP 18; TEMP 98.8; O2SAT 98
[2016-07-16] MEDS: LORazepam 1 MG TAB PO PRN (18:48)
[2016-07-16] MEDS: MIRTAZAPINE 15 MG TAB PO SCH (20:08)
[2016-07-16] MEDS: DIVALPROEX DR 500 MG TABEC PO SCH (20:09)
[2016-07-16] MEDS: diphenhydrAMINE HCL 50 MG CAP PO SCH (20:09)
--- NOTE | 2016-07-16 20:12 | EKG ---
Date Performed: 07/15/2016 Time Performed: 12:24:34 PTAGE: 31 years EKG: Sinus rhythm POSSIBLE LEFT ATRIAL ENLARGEMENT BORDERLINE ECG PREVIOUS TRACING : 07/12/2016 09.38 Compared to the previous tracing, previously tachycardic DOCTOR: Senthil Golden Interpretating Date/Time 07/16/2016 20:11:26
[2016-07-16] MEDS ORDERED: diphenhydrAMINE HCL 50 MG/ML VIAL IM ONE ×2 (20:30)
[2016-07-16] MEDS ORDERED: LORazepam 2 MG/ML VIAL IM ONE ×2 (20:30)
[2016-07-16] MEDS ORDERED: ZIPRASIDONE MESYLATE 20 MG VIAL IM ONE ×2 (20:30)
[2016-07-17] MEDS: MUPIROCIN 2% OINT 22 GM TUBE TOPICAL SCH ×4 (06:00→21:08)
[2016-07-17 06:12] VITALS: BP 110/72; PULSE 102; RESP 18; TEMP 98.9; O2SAT 98
[2016-07-17] MEDS: DIVALPROEX SODIUM DELAYED RELEASE 250 MG TAB PO SCH (09:12)
[2016-07-17] MEDS: cloZAPine 25 MG TAB PO SCH (09:12)
[2016-07-17] MEDS: BENZTROPINE MESYLATE 1 MG TAB PO SCH ×2 (09:13→21:04)
[2016-07-17] MEDS: cloZAPine 100 MG TAB PO SCH ×2 (09:13→21:03)
[2016-07-17] MEDS: POLYETHYLENE GLYCOL 17 GM PKG PO SCH (09:13)
[2016-07-17] MEDS: DOCUSATE SODIUM 100 MG CAP PO SCH ×2 (09:13→21:04)
[2016-07-17] MEDS: PROPRANOLOL HCL 20 MG TAB PO SCH ×2 (09:13→21:04)
--- NOTE | 2016-07-17 14:43 | HHI.PR ---
Subjective Remarks Follow-up abrasion self injury, tachycardia, tobacco abuse. Patient seen in inpatient psychiatric day room and appears withdrawn with soft speech. Patient has multiple open abrasion on right side of forehead and face. Patient denies headache or visual changes at this time. CT scan reviewed and reveals no intra- parenchymal hemorrhage right frontal scalp contusion. Patient offers no complaints at this time. Denies chest pain palpitations shortness of breath nausea vomiting diarrhea constipation fevers or chills Objective Vitals Vital Signs Date Time Temp Pulse Resp B/P Pulse Ox O2 Delivery O2 Flow Rate FiO2 07/17/16 06:12 98.9 102 18 110/72 98 07/16/16 17:49 98.8 99 18 117/72 98 Result Diagram: 07/14/16 0709 07/13/16 0728 Objective Remarks GENERAL: This is a well-nourished, well-developed patient, in no apparent distress, with flat affect. SKIN: Multiple healing abrasions to right side of face, new open abrasion right side of forehead EYES: Extraocular motions intact. No scleral icterus. No injection or drainage. CARDIOVASCULAR: Regular rate and rhythm without murmurs, gallops, or rubs. RESPIRATORY: Clear to auscultation. Breath sounds equal bilaterally. No wheezes , rales, or rhonchi. GASTROINTESTINAL: Abdomen soft, non-tender, nondistended. No hepato-splenomegaly , or palpable masses. No guarding. Normoactive bowel sounds 4 quadrants MUSCULOSKELETAL: Extremities without clubbing, cyanosis, or edema. No joint tenderness, effusion, or edema noted. No calf tenderness. Negative Homans sign bilaterally. NEUROLOGICAL: Awake and alert. Motor and sensory grossly within normal limits. Five out of 5 muscle strength in all muscle groups. Soft whisper-like speech. A/P Assessment and Plan This is a 31-year-old female patient with past medical history of schizophrenia currently admitted inpatient psychiatric services. Been consulted for assistance with self injury to face Schizophrenia -Management per psychiatric services Abrasion right side of face- self-inflicted Patient has new open abrasion right side of forehead. Per tech patient hit head up against wall in her room last night (07/14/16) -CT scan reviewed and reveals no intra-parenchymal hemorrhage right frontal scalp contusion. -No signs of infection at this time - keep areas clean and dry - apply Bactroban BID Tachycardic- long standing - Encourage by mouth fluid intake - continue propranolol - EKG 07/16/11 shows SR HR 88 - Echocardiogram gram reviewed summary wall thickness at the upper limits of normal systolic function was normal EF ejection fraction 60-65% wall motion is normal there's no regional wall motion abnormalities. Tobacco abuse -Patient counseled on health risk of tobacco abuse encouraged to abstain DVT prophylaxis patient is ambulatory Discussed plan of care with patient and nursing Patient appears medically stable we'll sign off if patient's condition changes or further assistance is needed please reconsult. Written by Harriett العلي, acting as scribe for Dr. Noriega on 07/17/16 at 14:42. Attending Statement All or portions of this note were transcribed by scribe Harriett العلي. I, Dr. Johnny Timmons personally performed the history, physical exam, and medical decision making; and confirmed the accuracy of the information in the transcribed note. Authenticated by Dr. Johnny Timmons on 07/17/16 at 15:00 Harriett العلي Jul 17, 2016 14:43 Johnny Tucker MD Jul 27, 2016 13:15
--- NOTE | 2016-07-17 16:34 | HHI.PYPN ---
Subjective Remarks Patient was seen and case discussed with nursing. Patient remains bothered by auditory hallucinations. When asked the content she says she does not want to discuss them. She is on a modified one-to-one per nursing. Spending the day in the common area. Affect is blunted. She has fleeting suicidal thoughts with no intent or plan. Denies any impulse of scratching herself or hurting herself any other manner. Objective Alert: Yes [place]: Person, Place (at least) Mood: Depressed Affect: Flat Memory Intact: Comment (seems intact on clinical exam) Hallucinations: Auditory (would not specify today), Other (No CAH to hurt others) Delusions: No Delusion Type: Other (no delusional material) Suicidal: Ideation (endorses suicidal ideation and cannot contract for safety at this time.) Homicidal: Ideation (denies homicidal ideation) Insight/Judgement Poor Labs Test 07/17/16 06:30 Valproic Acid (Depakene) Level 88 MCG/ML Vitals/IOs Vital Signs Date Time Temp Pulse Resp B/P Pulse Ox O2 Delivery O2 Flow Rate FiO2 07/17/16 06:12 98.9 102 18 110/72 98 Assessment & Plan Problem List: (1) Paranoid type schizophrenia, chronic state with acute exacerbation ICD Code: F20.0 Assessment & Plan Continue one-to-one. Continue medication at current dosing Justification for Cont. Inpt. Patient will decompensate in a less restrictive setting Request HC Surrog/Guard Advoc?: No Cecilio Villafuerte DO Jul 17, 2016 16:34
[2016-07-17] MEDS: diphenhydrAMINE HCL 50 MG CAP PO SCH (21:03)
[2016-07-17] MEDS: DIVALPROEX DR 500 MG TABEC PO SCH (21:04)
[2016-07-17] MEDS: MIRTAZAPINE 15 MG TAB PO SCH (21:04)
[2016-07-17 22:22] VITALS: BP 109/71; PULSE 111; RESP 18; TEMP 99.1; O2SAT 98
[2016-07-18] MEDS: MUPIROCIN 2% OINT 22 GM TUBE TOPICAL SCH ×3 (06:00→21:17)
[2016-07-18] MEDS: DOCUSATE SODIUM 100 MG CAP PO SCH ×2 (08:10→21:17)
[2016-07-18] MEDS: POLYETHYLENE GLYCOL 17 GM PKG PO SCH (08:11)
[2016-07-18] MEDS: BENZTROPINE MESYLATE 1 MG TAB PO SCH ×2 (08:11→21:17)
[2016-07-18] MEDS: DIVALPROEX SODIUM DELAYED RELEASE 250 MG TAB PO SCH (08:11)
[2016-07-18] MEDS: PROPRANOLOL HCL 20 MG TAB PO SCH ×2 (08:11→21:17)
[2016-07-18] MEDS: cloZAPine 25 MG TAB PO SCH (08:11)
[2016-07-18] MEDS: cloZAPine 100 MG TAB PO SCH ×2 (08:11→21:18)
--- NOTE | 2016-07-18 16:35 | HHI.PYPN ---
Subjective Remarks Patient was seen and case discussed with nursing. This morning patient scratched her arm further. She continues to have command auditory hallucinations telling her to hurt herself. Patient denies any intent or ideation or plan of hurting herself today. She is resisting the impulses to scratch herself further. Affect is flat and patient is hypoverbal. There was no one-to-one available during the scratching this morning Objective Alert: Yes [place]: Person, Place (at least) Mood: Depressed Affect: Flat Memory Intact: Comment (seems intact on clinical exam) Hallucinations: Auditory (to hurt herself), Other (No CAH to hurt others) Delusions: No Delusion Type: Other (no delusional material) Suicidal: Ideation (denies) Homicidal: Ideation (denies) Insight/Judgement Poor Vitals/IOs Vital Signs Date Time Temp Pulse Resp B/P Pulse Ox O2 Delivery O2 Flow Rate FiO2 07/17/16 22:22 99.1 111 18 109/71 98 Assessment & Plan Problem List: (1) Paranoid type schizophrenia, chronic state with acute exacerbation ICD Code: F20.0 Assessment & Plan Patient does not have a one-to-one. I spoke with charge nurse Martin made by concerns known concerning getting staff coverage to watch Rody. Given directed me to the nurse manager renewable energy, said they would work on getting staffing to watch Rody. The medical communication specialist Dr. Bee was called and made aware of staffing shortages for one-to-one for Rody. He suggested direct observation while hospital staff work on obtaining somebody to watch her. Meanwhile she will be under direct observation in the dayroom during the day and during the nighttime. Justification for Cont. Inpt. Patient will decompensate in a less restrictive setting Request HC Surrog/Guard Advoc?: No Cecilio Villafuerte DO Jul 18, 2016 16:35
[2016-07-18 17:03] VITALS: BP 109/74; PULSE 100; RESP 18; TEMP 98.9
[2016-07-18] MEDS: LORazepam 2 MG/ML VIAL IM PRN (18:07)
[2016-07-18] MEDS ORDERED: diphenhydrAMINE HCL 50 MG/ML VIAL ONE (18:55)
[2016-07-18] MEDS ORDERED: ZIPRASIDONE MESYLATE 20 MG VIAL IM ONE ×2 (18:55→19:15)
[2016-07-18 19:10] VITALS: BP 117/60; PULSE 94; RESP 18; TEMP 97.8; O2SAT 97
[2016-07-18] MEDS ORDERED: diphenhydrAMINE HCL 50 MG/ML VIAL IM ONE (19:15)
[2016-07-18] MEDS: diphenhydrAMINE HCL 50 MG CAP PO SCH (21:17)
[2016-07-18] MEDS: DIVALPROEX DR 500 MG TABEC PO SCH (21:17)
[2016-07-18] MEDS: MIRTAZAPINE 15 MG TAB PO SCH (21:18)
[2016-07-19 06:14] VITALS: BP 117/62; PULSE 101; RESP 18; TEMP 97.8; O2SAT 97
[2016-07-19] MEDS: MUPIROCIN 2% OINT 22 GM TUBE TOPICAL SCH ×3 (06:53→20:02)
[2016-07-19] MEDS: cloZAPine 100 MG TAB PO SCH (08:15)
[2016-07-19] MEDS: PROPRANOLOL HCL 20 MG TAB PO SCH ×2 (08:16→20:01)
[2016-07-19] MEDS: POLYETHYLENE GLYCOL 17 GM PKG PO SCH (08:16)
[2016-07-19] MEDS: DOCUSATE SODIUM 100 MG CAP PO SCH ×2 (08:16→20:00)
[2016-07-19] MEDS: BENZTROPINE MESYLATE 1 MG TAB PO SCH ×2 (08:16→20:00)
[2016-07-19] MEDS: cloZAPine 25 MG TAB PO SCH (08:16)
[2016-07-19] MEDS: DIVALPROEX SODIUM DELAYED RELEASE 250 MG TAB PO SCH (08:16)
--- NOTE | 2016-07-19 09:59 | HHI.PYPN ---
Subjective Remarks Patient seen and examined with counselor and nurse. Chart reviewed. I note that the patient self injured again over the weekend, scratching her left forearm. Case discussed with nursing staff. On my examination today, patient remains dysphoric. Speech is quiet, but I am able to ascertain that she continues to experience CAH to self-injure. She cannot contract for safety. Patient is presently sitting with techs for lack of a dedicated 1:1 sitter, and I have spoken with the household appliance repairer, who has promised to provide us with a sitter, stat. Patient has written a letter explaining that she feels that she is tortured by the voice of Karen. Denies side effects from medications besides sialorrhea. Review of Systems ROS Limitations: Psychotic Other Besides above, no physical complaints today. Objective Alert: Yes [place]: Person, Place (at least) Mood: Depressed (remains depressed) Affect: Flat (remains quite flat.) Memory Intact: Comment (seems intact on clinical exam) Hallucinations: Auditory (Ongoing CAH to self-injure but not to hurt others.) Delusions: No Delusion Type: Other (none elicited) Suicidal: Ideation (No SI but unreliable to contract for safety in present state.) Homicidal: Ideation (denies) Insight/Judgement Poor Remarks TP linear. Speech soft. No motoric abnormalities noted. Self-injury to L forearm noted; patient has raked her nails across her skin, leaving several superficial, wide-based lesions. Grooming and hygiene fair. Labs Labs reviewed. No new labs. Vitals/IOs Vital Signs Date Time Temp Pulse Resp B/P Pulse Ox O2 Delivery O2 Flow Rate FiO2 07/19/16 06:14 97.8 101 18 117/62 97 Assessment & Plan Problem List: (1) Paranoid type schizophrenia, chronic state with acute exacerbation ICD Code: F20.0 (2) Depressive disorder ICD Code: F32.9 (3) Self-injurious behavior ICD Code: F48.9 Assessment & Plan Titrate Clozapine to target psychosis/CAH. Weekly CBC ordered for Tuesday. Depressed mood remains prominent, and I have logged this as a separate diagnosis. Patient is on maximal dose of Remeron. I will add low-dose SSRI with plans either to cross taper the Remeron to the new agent or view the Remeron as an augmenting agent. I will chose highly anticholinergic Paxil as this may help with the drooling from the clozapine. If we cannot bring patient' s symptoms under control within a reasonable amount of time, we may need to consider referral for electroconvulsive therapy given the safety concerns at play. supervisor pig machine has promised to provide the 1:1 and in the meantime, staff will sit with patient. Continue other medications and care as ordered. Justification for Cont. Inpt. Serious impairments in safety. Impairments in reality construction. Complicating conditions (self-injury). Medication changes. High risk for decompensation. Discharge Planning State hospital referral. Counselor plans to finish state packet today. Request HC Surrog/Guard Advoc?: No Moshe Mcclendon MD Jul 19, 2016 09:59
[2016-07-19] MEDS ORDERED: LORazepam 2 MG TAB PO ONE (10:15)
[2016-07-19] MEDS: PARoxetine HCL 20 MG TAB PO SCH (12:00)
[2016-07-19 17:59] VITALS: BP 110/73; PULSE 109; RESP 18; TEMP 98.6; O2SAT 100
[2016-07-19 19:47] VITALS: BP 110/73; PULSE 109; RESP 18; TEMP 98.6; O2SAT 100
[2016-07-19] MEDS: MIRTAZAPINE 15 MG TAB PO SCH (20:00)
[2016-07-19] MEDS: diphenhydrAMINE HCL 50 MG CAP PO SCH (20:00)
[2016-07-19] MEDS: DIVALPROEX DR 500 MG TABEC PO SCH (20:01)
[2016-07-19] MEDS: ACETAMINOPHEN 325 MG TAB PO PRN (20:05)
[2016-07-19] MEDS ORDERED: cloZAPine 100 MG TAB PO SCH (21:00)
[2016-07-20 05:34] VITALS: BP 108/59; PULSE 87; RESP 18; TEMP 99; O2SAT 96
[2016-07-20] MEDS: MUPIROCIN 2% OINT 22 GM TUBE TOPICAL SCH ×3 (06:00→21:16)
[2016-07-20] MEDS: DIVALPROEX SODIUM DELAYED RELEASE 250 MG TAB PO SCH (08:36)
[2016-07-20] MEDS: PARoxetine HCL 20 MG TAB PO SCH (08:37)
[2016-07-20] MEDS: PROPRANOLOL HCL 20 MG TAB PO SCH ×2 (08:37→20:37)
[2016-07-20] MEDS: cloZAPine 25 MG TAB PO SCH (08:37)
[2016-07-20] MEDS: BENZTROPINE MESYLATE 1 MG TAB PO SCH ×2 (08:37→20:37)
[2016-07-20] MEDS: cloZAPine 100 MG TAB PO SCH ×2 (08:37→20:36)
[2016-07-20] MEDS: DOCUSATE SODIUM 100 MG CAP PO SCH ×2 (08:37→20:37)
[2016-07-20] MEDS: POLYETHYLENE GLYCOL 17 GM PKG PO SCH (08:41)
--- NOTE | 2016-07-20 11:44 | HHI.PYPN ---
Subjective Remarks Patient seen and examined with nurse. Chart reviewed. Case discussed with nurse, counselor and occupational therapist in treatment team. Per nursing staff, patient continues to believe that she is being tortured by Karen and told nursing staff "[place] is stronger than God." Counselor reports that he has mailed patient's [facility] referral packet this morning. Occupational therapist notes that the patient makes an effort to attend groups, but cannot tolerate them for very long secondary to her ongoing psychosis and other mental health issues. Patient remains on a one-to-one for safety given her recent self-injurious behavior. On my examination today, the patient remains extremely depressed and downcast. She says that she feels "the same." Ongoing command auditory hallucinations to self injure. She feels hopeless. Denies side effects from medications. Review of Systems Other No physical complaints today Objective Alert: Yes [place]: Person, Place Mood: Depressed (marked) Affect: Flat Memory Intact: Comment (seems intact on clinical exam) Hallucinations: Auditory (CAH to hurt self but not to hurt others.) Delusions: No Delusion Type: Other (none elicited) Suicidal: Ideation (None voiced but remains unreliable to contract for safety at this time) Homicidal: Ideation (denies) Insight/Judgement Poor Remarks No motor abnormalities noted. Thought process extremely slowed but linear. Grooming and hygiene are fair. Labs Labs reviewed. No new labs. Vitals/IOs Vital Signs Date Time Temp Pulse Resp B/P Pulse Ox O2 Delivery O2 Flow Rate FiO2 07/20/16 05:34 99.0 87 18 108/59 96 Assessment & Plan Problem List: (1) Paranoid type schizophrenia, chronic state with acute exacerbation ICD Code: F20.0 (2) Depressive disorder ICD Code: F32.9 (3) Self-injurious behavior ICD Code: F48.9 Assessment & Plan First dose of Paxil ordered for this morning. I will titrate patient's clozapine to target ongoing psychosis. CBC for ANC ordered for tomorrow. Continue one-to-one for safety. Continue other medications and care as ordered. Justification for Cont. Inpt. Serious impairments in safety given recent self injury. Impairments in self- care. Impairments in reality construction, namely command auditory hallucinations to hurt herself. Medication changes requiring active monitoring. Very high risk for decompensation in a less restrictive environment. Discharge Planning [facility] referral. Request HC Surrog/Guard Advoc?: No Moshe Mcclendon MD Jul 20, 2016 11:44
[2016-07-20] MEDS ORDERED: PILL SPLITTER OTHER PRN (12:30)
[2016-07-20 17:30] VITALS: BP 108/59; PULSE 87; RESP 18; TEMP 98; O2SAT 96
[2016-07-20] MEDS: diphenhydrAMINE HCL 50 MG CAP PO SCH (20:36)
[2016-07-20] MEDS: DIVALPROEX DR 500 MG TABEC PO SCH (20:37)
[2016-07-20] MEDS: MIRTAZAPINE 15 MG TAB PO SCH (20:37)
[2016-07-21] MEDS: MUPIROCIN 2% OINT 22 GM TUBE TOPICAL SCH ×3 (06:00→21:21)
[2016-07-21 06:29] VITALS: BP 109/66; PULSE 80; RESP 18; TEMP 98.4; O2SAT 99
[2016-07-21 07:55] LABS: AUTOMATED NEUTROPHIL # 3.4 TH/MM3 (1.8-7.7); BASOPHIL % 0.4 % (0.0-2.0); HEMATOCRIT 35.5 % (35.0-46.0); LYMPH % 41.3 % (9.0-44.0); MEAN CELL VOLUME 83.3 FL (80.0-100.0); MEAN CORPUSCULAR HEMOGLOBIN 27.6 PG (27.0-34.0); MEAN CORPUSCULAR HGB CONC 33.1 % (32.0-36.0); MONO % 11.6 % (0.0-8.0); NEUT % 46.7 % (16.0-70.0); PLATELET COUNT 219 TH/MM3 (150-450); RED BLOOD COUNT 4.26 MIL/MM3 (4.00-5.30); RED CELL DISTRIBUTION WIDTH 14.6 % (11.6-17.2); WHITE BLOOD COUNT 7.3 TH/MM3 (4.0-11.0)
[2016-07-21 08:04] LABS: HEMO FLAGS AUTO DIFF
[2016-07-21] MEDS: BENZTROPINE MESYLATE 1 MG TAB PO SCH ×2 (08:38→20:16)
[2016-07-21] MEDS: cloZAPine 25 MG TAB PO SCH (08:38)
[2016-07-21] MEDS: DOCUSATE SODIUM 100 MG CAP PO SCH ×2 (08:38→20:16)
[2016-07-21] MEDS: DIVALPROEX SODIUM DELAYED RELEASE 250 MG TAB PO SCH (08:38)
[2016-07-21] MEDS: PARoxetine HCL 20 MG TAB PO SCH (08:39)
[2016-07-21] MEDS: cloZAPine 100 MG TAB PO SCH ×2 (08:39→20:16)
[2016-07-21] MEDS: PROPRANOLOL HCL 20 MG TAB PO SCH ×2 (08:39→20:16)
[2016-07-21] MEDS: POLYETHYLENE GLYCOL 17 GM PKG PO SCH (08:39)
[2016-07-21 09:17] LABS: BANDS 1 % (0-6); NEUTROPHIL # MANUAL DIFF 3.7 TH/MM3 (1.8-7.7); POLYS (SEG NEUTROPHILS) 50 % (16-70); WBC DIFF SAMPLE 100
[2016-07-21 09:18] LABS: PLATELET ESTIMATE SMEAR NORMAL (NORMAL); PLATELET MORPHOLOGY NORMAL (NORMAL)
[2016-07-21 09:19] LABS: SCAN/DIFF FINAL DIFF MANUAL
--- NOTE | 2016-07-21 12:19 | HHI.PYPN ---
Subjective Remarks Patient seen and examined with nurse. Chart reviewed. Case discussed with nursing staff who reports patient has pursued no ongoing self injury but is fairly sedated because of her significant psychotropic medication burden. Charting does indicate the patient seems to be eating fairly well though. She remains on one-to-one for safety. On my examination today, the patient does seem a little brighter in terms of her affect and more conversant. Her thought process is somewhat slow and she does complain of feeling subjectively sedated. She does complain of ongoing command auditory hallucinations to self injure with attendant suicidal ideation. Besides the sedation, the patient does complain of some ongoing sialorrhea but otherwise denies side effects from medications. Review of Systems Other Except as above, no physical complaints today Objective Alert: Yes [place]: Person, Place Mood: Depressed Affect: Blunted (affect is somewhat more reactive today) Memory Intact: Comment (seems intact on clinical exam) Hallucinations: Auditory (ongoing command auditory hallucinations to hurt herself) Delusions: No Delusion Type: Other (no moris delusional material) Suicidal: Ideation (vague suicidal ideation and remains unreliable to contract for safety) Homicidal: Ideation (no HI) Insight/Judgement Poor Remarks Thought process linear but slow. Speech is slow with increased speech latency. No motoric abnormalities noted. Grooming and hygiene fair. Labs Test 07/21/16 07:36 White Blood Count 7.3 TH/MM3 Red Blood Count 4.26 MIL/MM3 Hemoglobin 11.8 GM/DL Hematocrit 35.5 % Mean Corpuscular Volume 83.3 FL Mean Corpuscular Hemoglobin 27.6 PG Mean Corpuscular Hemoglobin 33.1 % Concent Red Cell Distribution Width 14.6 % Platelet Count 219 TH/MM3 Mean Platelet Volume 8.7 FL Neutrophils (%) (Auto) 46.7 % Lymphocytes (%) (Auto) 41.3 % Monocytes (%) (Auto) 11.6 % Eosinophils (%) (Auto) 0.0 % Basophils (%) (Auto) 0.4 % Neutrophils # (Auto) 3.4 TH/MM3 Lymphocytes # (Auto) 3.0 TH/MM3 Monocytes # (Auto) 0.8 TH/MM3 Eosinophils # (Auto) 0.0 TH/MM3 Basophils # (Auto) 0.0 TH/MM3 CBC Comment AUTO DIFF Differential Total Cells 100 Counted Neutrophils % (Manual) 50 % Band Neutrophils % 1 % Lymphocytes % 43 % Monocytes % 6 % Neutrophils # (Manual) 3.7 TH/MM3 Differential Comment FINAL DIFF MANUAL Platelet Estimate NORMAL Platelet Morphology Comment NORMAL Labs reviewed. Interval improvement in patient's mild anemia. ANC stable and adequate for Clozaril therapy. Vitals/IOs Vital Signs Date Time Temp Pulse Resp B/P Pulse Ox O2 Delivery O2 Flow Rate FiO2 07/21/16 06:29 98.4 80 18 109/66 99 Assessment & Plan Problem List: (1) Paranoid type schizophrenia, chronic state with acute exacerbation ICD Code: F20.0 (2) Depressive disorder ICD Code: F32.9 (3) Self-injurious behavior ICD Code: F48.9 Assessment & Plan Given complaints of sedation we will gently taper off patient's Thorazine, as I believe that it is the Clozaril that has the greatest hope of providing clinical benefit regarding patient's command auditory hallucinations. If sedation remains an ongoing issue, we might alternate titration of clozapine and tapering Thorazine over succeeding days. I will continue patient's Paxil and Remeron as ordered and also continue patient's Depakote as ordered. Continue one-to-one for safety. Presently, one of the behavioral health techs is sitting with the patient due to lack of one-to-one from central staffing. I once again placed a call to the housekeeper who has promised to provide a proper one-to-one. Continue other medications and care as ordered. Justification for Cont. Inpt. Grave impairments in safety. Impairments in reality construction. Impairments in social functioning. Medication changes requiring active monitoring. High risk for decompensation in a less restrictive environment. Discharge Planning Pending psychiatric stabilization. I have initiated a [facility] psychiatric hospital referral, and it is possible that we may be forced to send the patient to the [facility], but I will be pursuing active medication adjustments in the meantime to see if we can stabilize her condition and pursue some alternative disposition plan such as alternative placement at a new assisted living facility. Estimated length of stay is at least 1-2 additional weeks, quite possibly much longer if state psychiatric hospitalization is required. Request HC Surrog/Guard Advoc?: No Moshe Mcclendon MD Jul 21, 2016 12:19
[2016-07-21] MEDS: LORazepam 1 MG TAB PO PRN (16:34)
[2016-07-21 18:58] VITALS: BP 119/68; PULSE 109; RESP 18; TEMP 98.7; O2SAT 99
[2016-07-21] MEDS: DIVALPROEX DR 500 MG TABEC PO SCH (20:16)
[2016-07-21] MEDS: diphenhydrAMINE HCL 50 MG CAP PO SCH (20:16)
[2016-07-21] MEDS: MIRTAZAPINE 15 MG TAB PO SCH (20:43)
[2016-07-22] MEDS: MUPIROCIN 2% OINT 22 GM TUBE TOPICAL SCH ×4 (05:11→22:00)
[2016-07-22 05:25] VITALS: BP 104/67; PULSE 89; RESP 17; TEMP 98.5; O2SAT 98
[2016-07-22] MEDS: DIVALPROEX SODIUM DELAYED RELEASE 250 MG TAB PO SCH (08:25)
[2016-07-22] MEDS: DOCUSATE SODIUM 100 MG CAP PO SCH ×2 (08:25→20:34)
[2016-07-22] MEDS: PROPRANOLOL HCL 20 MG TAB PO SCH ×2 (08:26→20:34)
[2016-07-22] MEDS: PARoxetine HCL 20 MG TAB PO SCH (08:26)
[2016-07-22] MEDS: LORazepam 1 MG TAB PO PRN ×2 (08:26→20:33)
[2016-07-22] MEDS: cloZAPine 25 MG TAB PO SCH (08:26)
[2016-07-22] MEDS: BENZTROPINE MESYLATE 1 MG TAB PO SCH ×2 (08:26→20:34)
[2016-07-22] MEDS: cloZAPine 100 MG TAB PO SCH (08:26)
[2016-07-22] MEDS: POLYETHYLENE GLYCOL 17 GM PKG PO SCH (08:26)
--- NOTE | 2016-07-22 11:32 | HHI.PYPN ---
Subjective Remarks Patient seen and examined with nurse. Chart reviewed. Case discussed with nursing staff who reports patient is medication compliant. It has been at least 3 days since the patient's last self injury. On my examination today, patient is again somewhat more interactive. She remains on 1:1 for safety. She is still somewhat sedated, though, both subjectively and objectively. She endorses ongoing CAH to self-injure and remains depressed. She has written another note, which I have reviewed on the chart, reiterating that she feels pursued by Karen. Besides the sialorrhea from clozapine, no side effects from medications. Review of Systems Other Except as above, no physical complaints today Objective Alert: Yes [place]: Person, Place Mood: Depressed Affect: Blunted (affect remains a little more reactive today) Memory Intact: Comment (seems intact on clinical exam) Hallucinations: Auditory (once again command auditory hallucinations to self injure but not to hurt others) Delusions: No Delusion Type: Other (Patient feels she is being pursued by Karen, but I think this is an explanation of her CAH and not a delusion, per se) Suicidal: Ideation (ongoing vague suicidal ideation and remains unreliable to contract for safety) Homicidal: Ideation (no HI) Insight/Judgement Poor Remarks Thought process linear but slowed. No motor abnormalities noted. Speech remains extremely soft. Labs Labs reviewed. No new labs. Vitals/IOs Vital Signs Date Time Temp Pulse Resp B/P Pulse Ox O2 Delivery O2 Flow Rate FiO2 07/22/16 05:25 98.5 89 17 104/67 98 Assessment & Plan Problem List: (1) Paranoid type schizophrenia, chronic state with acute exacerbation ICD Code: F20.0 (2) Depressive disorder ICD Code: F32.9 (3) Self-injurious behavior ICD Code: F48.9 Assessment & Plan Continue to taper Thorazine to try to manage sedation. I will simultaneously titrate clozapine to try to bring psychotic symptoms under better control. Continue other psychotropics as ordered for now. Continue one-to-one for safety. Continue other medications and care as ordered. Justification for Cont. Inpt. Impairment in safety. Impairment in reality construction. Impairment in social function. Medication changes requiring active monitoring. High risk for decompensation in a less restrictive environment. Discharge Planning Pending psychiatric stabilization. [facility] referral initiated. Request HC Surrog/Guard Advoc?: No Moshe Mcclendon MD Jul 22, 2016 11:32
[2016-07-22] MEDS: LORazepam 2 MG/ML VIAL IM PRN (14:35)
[2016-07-22 15:15] VITALS: BP 118/67; PULSE 111; RESP 18; TEMP 99; O2SAT 98
[2016-07-22] MEDS: diphenhydrAMINE HCL 50 MG CAP PO SCH (20:33)
[2016-07-22] MEDS: MIRTAZAPINE 15 MG TAB PO SCH (20:33)
[2016-07-22] MEDS: DIVALPROEX DR 500 MG TABEC PO SCH (20:33)
[2016-07-22] MEDS ORDERED: cloZAPine 100 MG TAB PO SCH (21:00)
[2016-07-22] MEDS ORDERED: ZOLPIDEM TARTRATE 10 MG TAB PO PRN (23:45)
[2016-07-22] MEDS ORDERED: ZOLPIDEM TARTRATE 10 MG TAB PO ONE (23:45)
[2016-07-23] MEDS: ALUMINUM/MAGNESIUM/SIMETH 30 ML CUP PO PRN (00:49)
[2016-07-23] MEDS: LORazepam 1 MG TAB PO PRN (01:45)
[2016-07-23] MEDS ORDERED: diphenhydrAMINE HCL 50 MG CAP PO ONE (02:30)
[2016-07-23] MEDS: MUPIROCIN 2% OINT 22 GM TUBE TOPICAL SCH ×2 (05:10→13:05)
[2016-07-23 05:35] VITALS: BP 126/82; PULSE 100; RESP 18; TEMP 98.2; O2SAT 99
[2016-07-23] MEDS: DOCUSATE SODIUM 100 MG CAP PO SCH ×2 (08:04→20:34)
[2016-07-23] MEDS: POLYETHYLENE GLYCOL 17 GM PKG PO SCH (08:04)
[2016-07-23] MEDS: DIVALPROEX SODIUM DELAYED RELEASE 250 MG TAB PO SCH (08:04)
[2016-07-23] MEDS: BENZTROPINE MESYLATE 1 MG TAB PO SCH ×2 (08:05→20:34)
[2016-07-23] MEDS: PARoxetine HCL 20 MG TAB PO SCH (08:05)
[2016-07-23] MEDS: cloZAPine 100 MG TAB PO SCH ×2 (08:06→21:00)
[2016-07-23] MEDS: PROPRANOLOL HCL 20 MG TAB PO SCH ×2 (08:07→21:00)
--- NOTE | 2016-07-23 10:03 | HHI.PYPN ---
Subjective Remarks Patient seen and examined with counselor. Chart reviewed. Case discussed with nursing staff reports patient remains somewhat unpredictable. On my examination today, the patient remains with a one-to-one for safety. She slept very poorly overnight, even after I had ordered her Ambien 5 mg which was repeated once. Patient remains depressed and continues to endorse command auditory hallucinations to hurt herself but not other people. She does seem more awake and alert since we have been tapering her Thorazine, and there has been no evidence at least of worsening of her psychotic symptoms as this medication has been reduced. I discussed with the patient the possibility of ECT and the patient notes that she has had 11 previous treatments with ECT. She does not think that this was particularly helpful and declines ECT at this time. She denies new side effects from medications. We discuss adjusting the dosing of her remaining Thorazine to place the bulk of it at night in hopes of getting her to sleep better as there were no reported sleep issues when she was on a robust nighttime dose of this agent. Patient is in agreement with this plan. Review of Systems ROS Limitations: Psychotic Other No new physical complaints today Objective Alert: Yes [place]: Person, Place (at least) Mood: Depressed Affect: Flat Memory Intact: Comment (seems intact on clinical exam) Hallucinations: Auditory (ongoing command auditory hallucinations as noted above) Delusions: No Delusion Type: Other (no delusions elicited today) Suicidal: Ideation (patient does not verbalize any suicidal ideation but is still experiencing command auditory hallucinations to self injure as noted) Homicidal: Ideation (no HI) Insight/Judgement Poor Remarks No motoric abnormalities noted. Speech soft and slow. Thought processes fairly linear. Labs Labs reviewed. No new labs. Vitals/IOs Vital Signs Date Time Temp Pulse Resp B/P Pulse Ox O2 Delivery O2 Flow Rate FiO2 07/23/16 05:35 98.2 100 18 126/82 99 Assessment & Plan Problem List: (1) Paranoid type schizophrenia, chronic state with acute exacerbation ICD Code: F20.0 (2) Depressive disorder ICD Code: F32.9 (3) Self-injurious behavior ICD Code: F48.9 Assessment & Plan Titrate clozapine to 150/300mg to manage psychosis. Weekly CBC for ANC ordered for next Tuesday. Seizure precautions prophylactically as we get to higher doses of clozapine. Adjust Thorazine dosing to 100/100/300mg to place bulk of the dose at HS to try to help with sleep. Weekend rounder, please consider titrating clozapine to target psychosis as appropriate. Consider also tapering Thorazine, particularly daytime doses. Continue other psychotropics as ordered. Could consider titrating Paxil for mood. Continue 1:1 for safety. Continue other medications and care as ordered. Justification for Cont. Inpt. Impairments in safety. Impairments in reality construction. Impairments in social functioning. Medication changes requiring monitoring. High risk for decompensation in a less restrictive environment. Discharge Planning Pending psychiatric stabilization. [facility] psychiatric hospital referral completed. Request HC Surrog/Guard Advoc?: No Moshe Mcclendon MD Jul 23, 2016 10:03
[2016-07-23 16:30] VITALS: BP 116/65; PULSE 112; RESP 18; TEMP 98.8; O2SAT 100
[2016-07-23] MEDS ORDERED: ZIPRASIDONE MESYLATE 20 MG VIAL IM ONE ×2 (19:43→19:45)
[2016-07-23] MEDS ORDERED: diphenhydrAMINE HCL 50 MG/ML VIAL ONE (19:43)
[2016-07-23] MEDS ORDERED: diphenhydrAMINE HCL 50 MG/ML VIAL IM ONE (19:45)
[2016-07-23] MEDS ORDERED: LORazepam 2 MG/ML VIAL IM ONE (19:45)
[2016-07-23] MEDS: diphenhydrAMINE HCL 50 MG CAP PO SCH (19:56)
[2016-07-23] MEDS: DIVALPROEX DR 500 MG TABEC PO SCH (21:00)
[2016-07-23] MEDS: MIRTAZAPINE 15 MG TAB PO SCH (21:00)
[2016-07-24 05:32] VITALS: BP 114/68; PULSE 98; RESP 18; TEMP 98; O2SAT 98
[2016-07-24] MEDS: MUPIROCIN 2% OINT 22 GM TUBE TOPICAL SCH ×3 (06:00→22:00)
[2016-07-24] MEDS: DIVALPROEX SODIUM DELAYED RELEASE 250 MG TAB PO SCH (08:31)
[2016-07-24] MEDS: PROPRANOLOL HCL 20 MG TAB PO SCH ×2 (08:31→20:35)
[2016-07-24] MEDS: PARoxetine HCL 20 MG TAB PO SCH (08:32)
[2016-07-24] MEDS: DOCUSATE SODIUM 100 MG CAP PO SCH ×2 (08:32→20:34)
[2016-07-24] MEDS: BENZTROPINE MESYLATE 1 MG TAB PO SCH ×2 (08:32→20:35)
[2016-07-24] MEDS: cloZAPine 100 MG TAB PO SCH ×2 (08:32→20:36)
[2016-07-24] MEDS: POLYETHYLENE GLYCOL 17 GM PKG PO SCH (08:33)
--- NOTE | 2016-07-24 16:04 | HHI.PYPN ---
Subjective Remarks Pt seen and discussed with staff. Yesterday thorazine dosage was changed and pt reports that she slept well last night for the first time. She remain on 1:1 due to hx of severe self harm and psychosis. She reports that AH persists ( voices of the devil). She became agitated with RN (screaming "you don't know what it's like to hear voices!" ) but calmed without ETO. No medication side effects. Review of Systems Psychiatric: COMPLAINS OF: Hallucinations Objective Alert: Yes [place]: Person, Place, Situation Mood: Depressed Affect: Restricted Memory Intact: Comment (seems intact on clinical exam) Hallucinations: Auditory (ongoing command auditory hallucinations as noted above) Delusions: No Delusion Type: Other (none) Suicidal: Ideation (denies SI) Homicidal: Ideation (denies HI) Insight/Judgement poor Vitals/IOs Vital Signs Date Time Temp Pulse Resp B/P Pulse Ox O2 Delivery O2 Flow Rate FiO2 07/24/16 05:32 98.0 98 18 114/68 98 Assessment & Plan Problem List: (1) Paranoid type schizophrenia, chronic state with acute exacerbation ICD Code: F20.0 (2) Depressive disorder ICD Code: F32.9 (3) Self-injurious behavior ICD Code: F48.9 Assessment & Plan Continue current tx plan. Estimated LOS: days Justification for Cont. Inpt. Continue current tx plan as pt is responding positively to mediation change. Will assess for further titration of clozapine tomorrow. Request HC Surrog/Guard Advoc?: Diane Mcdonald MD Jul 24, 2016 16:04
[2016-07-24 17:30] VITALS: BP 122/63; PULSE 104; RESP 19; TEMP 98; O2SAT 97
[2016-07-24 19:00] VITALS: BP_SYST 111; BP_SYST 122; BP_DIAS 63; PULSE 104; PULSE 75; RESP 18; RESP 19; TEMP 98
[2016-07-24] MEDS: MIRTAZAPINE 15 MG TAB PO SCH (20:35)
[2016-07-24] MEDS: DIVALPROEX DR 500 MG TABEC PO SCH (20:35)
[2016-07-24] MEDS: diphenhydrAMINE HCL 50 MG CAP PO SCH (20:35)
[2016-07-25] MEDS: MUPIROCIN 2% OINT 22 GM TUBE TOPICAL SCH ×3 (05:15→20:22)
[2016-07-25 05:39] VITALS: BP 95/50; PULSE 87; RESP 17; TEMP 98.3
[2016-07-25] MEDS: POLYETHYLENE GLYCOL 17 GM PKG PO SCH (09:00)
[2016-07-25] MEDS: DIVALPROEX SODIUM DELAYED RELEASE 250 MG TAB PO SCH (09:22)
[2016-07-25] MEDS: cloZAPine 100 MG TAB PO SCH ×2 (09:22→20:21)
[2016-07-25] MEDS: PARoxetine HCL 20 MG TAB PO SCH (09:23)
[2016-07-25] MEDS: PROPRANOLOL HCL 20 MG TAB PO SCH ×2 (09:23→20:21)
[2016-07-25] MEDS: DOCUSATE SODIUM 100 MG CAP PO SCH ×2 (09:23→20:21)
[2016-07-25] MEDS: BENZTROPINE MESYLATE 1 MG TAB PO SCH ×2 (09:24→20:21)
--- NOTE | 2016-07-25 12:27 | HHI.PYPN ---
Subjective Remarks Pt seen and discussed with staff. She is compliant with medications and denies side effects. She reports that she slept well last night. Mood lability and irritability have lessened. She c/o depression and AH, but has been out of room and more present in milieu. No self-injurious behaviors. She continues to have SI. Objective Alert: Yes [place]: Person, Place, Date, Situation Mood: Depressed Affect: Restricted (a bit more reactive today) Memory Intact: Comment (seems intact on clinical exam) Hallucinations: Auditory (AH-command (demons telling her to hurt self)) Delusions: No Delusion Type: Other (none) Suicidal: Ideation (denies SI) Homicidal: Ideation (denies HI) Insight/Judgement poor Vitals/IOs Vital Signs Date Time Temp Pulse Resp B/P Pulse Ox O2 Delivery O2 Flow Rate FiO2 07/25/16 05:39 98.3 87 17 95/50 07/24/16 17:30 97 Assessment & Plan Problem List: (1) Paranoid type schizophrenia, chronic state with acute exacerbation ICD Code: F20.0 (2) Depressive disorder ICD Code: F32.9 (3) Self-injurious behavior ICD Code: F48.9 Assessment & Plan Continue current tx plan. Estimated LOS: days Justification for Cont. Inpt. safety Request HC Surrog/Guard Advoc?: Diane Mcdonald MD Jul 25, 2016 12:27
[2016-07-25 17:06] VITALS: BP 103/65; PULSE 100; RESP 18; TEMP 98.4; O2SAT 99
[2016-07-25] MEDS: DIVALPROEX DR 500 MG TABEC PO SCH (20:20)
[2016-07-25] MEDS: MIRTAZAPINE 15 MG TAB PO SCH (20:21)
[2016-07-25] MEDS: LORazepam 1 MG TAB PO PRN (20:21)
[2016-07-25] MEDS: diphenhydrAMINE HCL 50 MG CAP PO SCH (20:21)
[2016-07-26] MEDS: MUPIROCIN 2% OINT 22 GM TUBE TOPICAL SCH ×3 (05:47→20:34)
[2016-07-26] MEDS: DOCUSATE SODIUM 100 MG CAP PO SCH ×2 (08:00→20:34)
[2016-07-26] MEDS: PARoxetine HCL 20 MG TAB PO SCH (08:01)
[2016-07-26] MEDS: DIVALPROEX SODIUM DELAYED RELEASE 250 MG TAB PO SCH (08:01)
[2016-07-26] MEDS: BENZTROPINE MESYLATE 1 MG TAB PO SCH ×2 (08:01→20:34)
[2016-07-26] MEDS: PROPRANOLOL HCL 20 MG TAB PO SCH ×2 (08:01→20:34)
[2016-07-26] MEDS: cloZAPine 100 MG TAB PO SCH ×2 (08:01→20:34)
[2016-07-26] MEDS: POLYETHYLENE GLYCOL 17 GM PKG PO SCH (08:03)
[2016-07-26 08:53] VITALS: BP 156/64; PULSE 120; RESP 20; O2SAT 98
--- NOTE | 2016-07-26 12:22 | HHI.PYPN ---
Subjective Remarks Patient seen and examined. Chart reviewed. Case discussed with nurse, counselor and occupational therapist in treatment team. Per nursing staff, patient seems to be improving, and although she articulates ongoing command auditory hallucinations there has been no self injury over the weekend. Counselor will check into patient's place on the [facility] waiting list. Occupational therapist notes that the patient is attending groups and is becoming somewhat more social. On my examination today, the patient does seem more interactive and less severely depressed, although she does continue to complain of low mood. She continues to complain of command auditory hallucinations to self injure, although when presented with a 10 point scale to describe her desire to self injure, she ranks this as 6 out of 10, with 10 being maximal desire to self-injure. She does complain of ongoing sialorrhea from clozapine and would like to adjust meds in service of ameliorating this side effect. Review of Systems ROS Limitations: Poor Historian Other No physical complaints today except for above. Objective Alert: Yes [place]: Person, Place, Date, Situation Mood: Depressed (remains depressed) Affect: Blunted Memory Intact: Comment (intact) Hallucinations: Auditory (CAH to hurt self) Delusions: No Delusion Type: Other (No delusions) Suicidal: Ideation (No SI but see above re: urge to self-injure) Homicidal: Ideation (No HI) Insight/Judgement Poor Remarks Thought process linear. No abnormal motor movements noted. Speech remains a little slow but otherwise within normal limits. Labs Labs reviewed. No new labs. Vitals/IOs Vital Signs Date Time Temp Pulse Resp B/P Pulse Ox O2 Delivery O2 Flow Rate FiO2 07/26/16 08:53 120 20 156/64 98 07/25/16 17:06 98.4 Assessment & Plan Problem List: (1) Paranoid type schizophrenia, chronic state with acute exacerbation ICD Code: F20.0 (2) Depressive disorder ICD Code: F32.9 Assessment & Plan Titrate Paxil for mood. Continue clozapine and Thorazine as ordered. I will gently titrate patient's Cogentin in an effort to dry up her secretions. Continue one-to-one for safety for now. Continue other medications and care as ordered. Justification for Cont. Inpt. Impairment in safety. Impairment in reality construction. Medication changes in process. High risk for decompensation in a less restrictive environment. Discharge Planning [facility] referral. Request HC Surrog/Guard Advoc?: No Moshe Mcclendon MD Jul 26, 2016 12:22
[2016-07-26 17:50] VITALS: BP 105/69; PULSE 103; RESP 18; TEMP 98.8; O2SAT 97
[2016-07-26] MEDS: LORazepam 1 MG TAB PO PRN (19:20)
[2016-07-26] MEDS: LORazepam 2 MG/ML VIAL IM PRN (19:21)
[2016-07-26] MEDS: diphenhydrAMINE HCL 50 MG CAP PO SCH (20:34)
[2016-07-26] MEDS: MIRTAZAPINE 15 MG TAB PO SCH (20:34)
[2016-07-26] MEDS: DIVALPROEX DR 500 MG TABEC PO SCH (20:34)
[2016-07-27] MEDS: MUPIROCIN 2% OINT 22 GM TUBE TOPICAL SCH ×3 (05:01→21:25)
[2016-07-27 05:32] VITALS: BP 118/59; PULSE 86; RESP 16; TEMP 98; O2SAT 96
[2016-07-27] MEDS: POLYETHYLENE GLYCOL 17 GM PKG PO SCH (09:00)
[2016-07-27] MEDS: cloZAPine 100 MG TAB PO SCH ×2 (09:16→20:08)
[2016-07-27] MEDS: DOCUSATE SODIUM 100 MG CAP PO SCH ×2 (09:17→20:07)
[2016-07-27] MEDS: DIVALPROEX SODIUM DELAYED RELEASE 250 MG TAB PO SCH (09:17)
[2016-07-27] MEDS: BENZTROPINE MESYLATE 1 MG TAB PO SCH ×2 (09:17→20:07)
[2016-07-27] MEDS: PARoxetine HCL 20 MG TAB PO SCH (09:17)
[2016-07-27] MEDS: PROPRANOLOL HCL 20 MG TAB PO SCH ×2 (09:17→20:10)
--- NOTE | 2016-07-27 10:19 | HHI.PYPN ---
Subjective Remarks Patient seen and examined with nurse. Chart reviewed. Case discussed with nursing staff who reports patient did have an episode of agitation overnight, although she was instigated by a fellow patient. On my examination today, the patient seems more interactive. She says that she feels "aggravated" and says that this is due to her ongoing command auditory hallucinations to self injure. We discussed that this represents a subtle change in her outlook from being the passive experiencer of her CAH to being a more active opponent of the voices. She rates her urge to self-injure as 7/10 on the same 10-point scale as yesterday. Drooling is improved with titration of Cogentin. Complains of constipation but no other side effects from medications. Review of Systems ROS Limitations: Psychotic Other Constipation. Patient reports no bowel movement in a week. She does continue to pass flatus. No other physical complaints. Objective Alert: Yes [place]: Person, Place, Date, Situation Mood: Depressed (perhaps a little less so) Affect: Blunted (perhaps a little more reactive) Memory Intact: Comment (intact) Hallucinations: Auditory (ongoing command auditory hallucinations to self injure) Delusions: No Delusion Type: Other (No delusions) Suicidal: Ideation (no SI but ongoing CAH to self injure) Homicidal: Ideation (no HI) Insight/Judgement Poor Remarks Thought process linear. No abnormal motor movements noted. Speech remains fairly soft. Labs Labs reviewed. No new labs. Vitals/IOs Vital Signs Date Time Temp Pulse Resp B/P Pulse Ox O2 Delivery O2 Flow Rate FiO2 07/27/16 05:32 98.0 86 16 118/59 96 Assessment & Plan Problem List: (1) Paranoid type schizophrenia, chronic state with acute exacerbation ICD Code: F20.0 (2) Depressive disorder ICD Code: F32.9 Assessment & Plan Titrate clozapine to 200 mg/500 mg to target CAH. Discontinue daytime dose of Thorazine but continue nighttime dose for sleep and for possible antipsychotic effect. Continue Paxil, Depakote and Cogentin. Add bisacodyl as needed for constipation. Continue one-to-one for safety. Continue to monitor on the unit. Continue other medications and care as ordered. Justification for Cont. Inpt. Impairment and safety. Impairment in reality construction. Impairment in social function. Medication changes. High risk for decompensation in a less restrictive environment. [facility] Planning [facility] Request HC Surrog/Guard Advoc?: No oMshe Mcclendon MD Jul 27, 2016 10:19
[2016-07-27] MEDS: LORazepam 1 MG TAB PO PRN (17:22)
[2016-07-27 17:45] VITALS: BP 96/56; PULSE 103; RESP 18; TEMP 98.4; O2SAT 98
[2016-07-27] MEDS: LORazepam 2 MG/ML VIAL IM PRN (18:21)
[2016-07-27] MEDS: diphenhydrAMINE HCL 50 MG CAP PO SCH (20:07)
[2016-07-27] MEDS: MIRTAZAPINE 15 MG TAB PO SCH (20:07)
[2016-07-27] MEDS: DIVALPROEX DR 500 MG TABEC PO SCH (20:07)
[2016-07-28] MEDS: MUPIROCIN 2% OINT 22 GM TUBE TOPICAL SCH ×3 (06:00→21:21)
[2016-07-28 06:10] VITALS: BP 99/62; PULSE 76; RESP 16; TEMP 97.4; O2SAT 95
[2016-07-28] MEDS: DOCUSATE SODIUM 100 MG CAP PO SCH ×2 (08:36→20:09)
[2016-07-28] MEDS: PARoxetine HCL 20 MG TAB PO SCH (08:36)
[2016-07-28] MEDS: cloZAPine 100 MG TAB PO SCH ×2 (08:36→20:09)
[2016-07-28] MEDS: PROPRANOLOL HCL 20 MG TAB PO SCH ×2 (08:36→20:09)
[2016-07-28] MEDS: BENZTROPINE MESYLATE 1 MG TAB PO SCH ×2 (08:37→20:09)
[2016-07-28] MEDS: DIVALPROEX SODIUM DELAYED RELEASE 250 MG TAB PO SCH (08:37)
[2016-07-28] MEDS: POLYETHYLENE GLYCOL 17 GM PKG PO SCH (08:40)
--- NOTE | 2016-07-28 09:07 | HHI.PYPN ---
Subjective Remarks Patient seen and examined with counselor. Chart reviewed. Case discussed with nursing staff who reports patient is doing fairly well with no further evidence of self injury. Patient does remain on one-to-one for safety. On my examination today, patient continues to describe her mood as "aggravated" although her affect remains fairly blunted to flat. Continues to complain of command auditory hallucinations but seems less acutely distressed by them. Urge to act on commanding voices somewhat less. Overall outlook seems fairly pessimistic, and I believe the patient tends to minimize therapeutic gains. Denies side effects from medications. Review of Systems ROS Limitations: Poor Historian Other No somatic complaints today. I note pt did have BM yesterday. Objective Alert: Yes [place]: Person, Place, Date, Situation Mood: Depressed ("aggrivated") Affect: Blunted Memory Intact: Comment (intact) Hallucinations: Auditory (reports ongoing CAH to self-injure) Delusions: No Delusion Type: Other (none elicited) Suicidal: Ideation (No SI) Homicidal: Ideation (No HI) Insight/Judgement Poor Remarks No abnormal motor movements noted. TP linear. Speech remains somewhat soft. Labs Labs reviewed. ANC stable and adequate for clozapine therapy. Mild interval worsening of Hgb. Vitals/IOs Vital Signs Date Time Temp Pulse Resp B/P Pulse Ox O2 Delivery O2 Flow Rate FiO2 07/28/16 06:10 97.4 76 16 99/62 95 Assessment & Plan Problem List: (1) Paranoid type schizophrenia, chronic state with acute exacerbation ICD Code: F20.0 (2) Depressive disorder ICD Code: F32.9 Assessment & Plan Continue clozapine 200/300mg, dose just increased this morning. Continue Thorazine 300mg qHS. Continue Paxil 30mg/daily but could consider further titration for mood. Continue VPA and Remeron. Continue 1:1 for safety. To consider reducing level of obs. Continue other medications and care as ordered. Justification for Cont. Inpt. Impairment in safety, although it has been several days since last self-injury, patient remains on 1:1. Impairment in reality testing. Risk for decompensation in a less restrictive environment. [facility]charge Planning [facility] Request HC Surrog/Guard Advoc?: No Moshe Mcclendon MD Jul 28, 2016 09:07
[2016-07-28 12:13] LABS: AUTOMATED NEUTROPHIL # 4.1 TH/MM3 (1.8-7.7); BASOPHIL % 0.2 % (0.0-2.0); HEMATOCRIT 33.1 % (35.0-46.0); HEMO FLAGS AUTO DIFF; LYMPH % 31.9 % (9.0-44.0); LYMPHOCYTE # 2.4 TH/MM3 (1.0-4.8); MEAN CELL VOLUME 84.3 FL (80.0-100.0); MEAN CORPUSCULAR HEMOGLOBIN 27.3 PG (27.0-34.0); MEAN CORPUSCULAR HGB CONC 32.4 % (32.0-36.0); MONO % 13.9 % (0.0-8.0); PLATELET COUNT 226 TH/MM3 (150-450); RED BLOOD COUNT 3.93 MIL/MM3 (4.00-5.30); RED CELL DISTRIBUTION WIDTH 15.1 % (11.6-17.2); WHITE BLOOD COUNT 7.6 TH/MM3 (4.0-11.0)
[2016-07-28 12:42] LABS: BANDS 4 % (0-6); METAMYELOCYTES 2 % (0-1); MYELOCYTES 1 % (0-0); NEUTROPHIL # MANUAL DIFF 4.7 TH/MM3 (1.8-7.7); POLYS (SEG NEUTROPHILS) 55 % (16-70); WBC DIFF SAMPLE 100
[2016-07-28 12:44] LABS: PLATELET ESTIMATE SMEAR NORMAL (NORMAL); PLATELET MORPHOLOGY NORMAL (NORMAL); SCAN/DIFF FINAL DIFF MANUAL
[2016-07-28] MEDS: LORazepam 1 MG TAB PO PRN (16:46)
[2016-07-28] MEDS ORDERED: ZIPRASIDONE MESYLATE 20 MG VIAL IM ONE ×2 (17:33→17:45)
[2016-07-28] MEDS ORDERED: diphenhydrAMINE HCL 50 MG/ML VIAL ONE (17:34)
[2016-07-28] MEDS ORDERED: diphenhydrAMINE HCL 50 MG/ML VIAL IM ONE (17:45)
[2016-07-28] MEDS: DIVALPROEX DR 500 MG TABEC PO SCH (20:08)
[2016-07-28] MEDS: MIRTAZAPINE 15 MG TAB PO SCH (20:09)
[2016-07-28] MEDS: diphenhydrAMINE HCL 50 MG CAP PO SCH (20:09)
[2016-07-29] MEDS: MUPIROCIN 2% OINT 22 GM TUBE TOPICAL SCH ×3 (05:07→21:26)
[2016-07-29 06:04] VITALS: BP 114/67; PULSE 106; RESP 18; TEMP 98.5; O2SAT 97
[2016-07-29 07:46] LABS: HEMATOCRIT 32.4 % (35.0-46.0); REVIEW FLAG FINAL
[2016-07-29] MEDS: POLYETHYLENE GLYCOL 17 GM PKG PO SCH (08:59)
[2016-07-29] MEDS: DIVALPROEX SODIUM DELAYED RELEASE 250 MG TAB PO SCH (09:00)
[2016-07-29] MEDS: PROPRANOLOL HCL 20 MG TAB PO SCH ×2 (09:01→20:20)
[2016-07-29] MEDS: cloZAPine 100 MG TAB PO SCH ×2 (09:01→20:20)
[2016-07-29] MEDS: DOCUSATE SODIUM 100 MG CAP PO SCH ×2 (09:01→20:20)
[2016-07-29] MEDS: BENZTROPINE MESYLATE 1 MG TAB PO SCH ×2 (09:01→20:20)
[2016-07-29] MEDS: PARoxetine HCL 20 MG TAB PO SCH (09:01)
--- NOTE | 2016-07-29 13:45 | HHI.PYPN ---
Subjective Remarks Patient seen and examined. Chart reviewed. Case discussed with nursing staff reports patient required an ETO yesterday afternoon after which she tried to bang her head. She has since been calm. On my examination today, patient is sitting calmly in the day area with her 1:1. She seems more interactive and shares that she has spoken with her mother. She says that her mother has heart disease. Patient says they discussed plan for state hospitalization and mother was supportive of this. Patient reports ongoing CAH as before and still has thoughts of acting on them. She does note that she gets stress-relief from self -injury that sounds nena to the relief described by those who cut. She denies any side effects from medications. Review of Systems Other No physical complaints today. Objective Alert: Yes [place]: Person, Place, Date, Situation Mood: Depressed (perhaps improving somewhat) Affect: Blunted (more reactive) Memory Intact: Comment (intact) Hallucinations: Auditory (again reports ongoing CAH to self-injure) Delusions: No Delusion Type: Other (No delusions) Suicidal: Ideation (No SI) Homicidal: Ideation (No HI) Insight/Judgement Poor Remarks No abnormal motor movements noted. TP linear. Speech a little less soft. Labs Test 07/29/16 06:40 Hemoglobin 10.4 GM/DL Hematocrit 32.4 % Labs reviewed. Anemia stable. Reviewed old iron studies; will start Fe supplementation. Vitals/IOs Vital Signs Date Time Temp Pulse Resp B/P Pulse Ox O2 Delivery O2 Flow Rate FiO2 07/29/16 06:04 98.5 106 18 114/67 97 Assessment & Plan Problem List: (1) Paranoid type schizophrenia, chronic state with acute exacerbation ICD Code: F20.0 (2) Depressive disorder ICD Code: F32.9 Assessment & Plan Titrate clozapine to target psychosis. Titrate Lexapro for mood. Could consider naltrexone for desire to self-injure. Continue 1:1 for safety. Continue other medications and care as ordered. Justification for Cont. Inpt. Impairments and safety. Impairments in reality construction. Impairments in social functioning. Medication changes. High risk for decompensation in a less restrictive environment. Discharge Planning [facility]. Request HC Surrog/Guard Advoc?: No Moshe Mcclendon MD Jul 29, 2016 13:45
[2016-07-29 17:25] VITALS: BP 112/66; PULSE 100; RESP 18; TEMP 98.6; O2SAT 100
[2016-07-29] MEDS: cloZAPine 25 MG TAB PO SCH (20:18)
[2016-07-29] MEDS: DIVALPROEX DR 500 MG TABEC PO SCH (20:19)
[2016-07-29] MEDS: diphenhydrAMINE HCL 50 MG CAP PO SCH (20:19)
[2016-07-29] MEDS: MIRTAZAPINE 15 MG TAB PO SCH (20:20)
[2016-07-29] MEDS: FERROUS SULFATE 325 MG (65 MG ELEMENTAL IRON) TAB PO SCH (20:20)
[2016-07-30] MEDS: MUPIROCIN 2% OINT 22 GM TUBE TOPICAL SCH ×3 (06:00→22:00)
[2016-07-30 06:05] VITALS: BP 96/64; PULSE 83; RESP 16; TEMP 97.3; O2SAT 96
[2016-07-30] MEDS: POLYETHYLENE GLYCOL 17 GM PKG PO SCH (08:41)
[2016-07-30] MEDS: PARoxetine HCL 20 MG TAB PO SCH (08:41)
[2016-07-30] MEDS: cloZAPine 100 MG TAB PO SCH ×2 (08:42→20:26)
[2016-07-30] MEDS: DOCUSATE SODIUM 100 MG CAP PO SCH ×2 (08:42→20:26)
[2016-07-30] MEDS: PROPRANOLOL HCL 20 MG TAB PO SCH ×2 (08:42→20:27)
[2016-07-30] MEDS: BENZTROPINE MESYLATE 1 MG TAB PO SCH ×2 (08:42→20:26)
[2016-07-30] MEDS: DIVALPROEX SODIUM DELAYED RELEASE 250 MG TAB PO SCH (08:42)
[2016-07-30] MEDS: FERROUS SULFATE 325 MG (65 MG ELEMENTAL IRON) TAB PO SCH ×2 (08:42→20:30)
--- NOTE | 2016-07-30 10:39 | HHI.PYPN ---
Subjective Remarks Patient remains on one-to-one for self. Relating behavior and requires ongoing observation. Continue to await medication efficacy. Review of Systems ROS Limitations: Clinical Condition Except as stated in HPI: all other systems reviewed are Neg Objective Alert: Yes [place]: Person, Place Mood: Depressed (perhaps improving somewhat) Affect: Blunted (more reactive) Memory Intact: Comment (intact) Hallucinations: Auditory (again reports ongoing CAH to self-injure) Delusions: No Delusion Type: Paranoid, Other (No delusions) Suicidal: Ideation (No SI) Homicidal: Ideation (No HI) Insight/Judgement Markedly impaired insight and judgment. Vitals/IOs Vital Signs Date Time Temp Pulse Resp B/P Pulse Ox O2 Delivery O2 Flow Rate FiO2 07/30/16 06:05 97.3 83 16 96/64 96 Assessment & Plan Problem List: (1) Paranoid type schizophrenia, chronic state with acute exacerbation ICD Code: F20.0 (2) Depressive disorder ICD Code: F32.9 Assessment & Plan Estimated LOS: 30 days [facility] as medications are not effective thus far. Justification for Cont. Inpt. High likelihood of self-injurious behavior. Request HC Surrog/Guard Advoc?: No Leo William MD Jul 30, 2016 10:39
[2016-07-30] MEDS: LORazepam 1 MG TAB PO PRN (16:10)
[2016-07-30 17:13] VITALS: BP 108/60; PULSE 97; RESP 18; TEMP 98.3; O2SAT 100
[2016-07-30] MEDS: MIRTAZAPINE 15 MG TAB PO SCH (20:27)
[2016-07-30] MEDS: cloZAPine 25 MG TAB PO SCH (20:27)
[2016-07-30] MEDS: DIVALPROEX DR 500 MG TABEC PO SCH (20:27)
[2016-07-30] MEDS: diphenhydrAMINE HCL 50 MG CAP PO SCH (20:27)
[2016-07-31] MEDS: MUPIROCIN 2% OINT 22 GM TUBE TOPICAL SCH ×3 (05:48→20:53)
[2016-07-31 06:02] VITALS: BP 90/46; PULSE 94; RESP 17; TEMP 98; O2SAT 97
[2016-07-31] MEDS: DIVALPROEX SODIUM DELAYED RELEASE 250 MG TAB PO SCH (08:12)
[2016-07-31] MEDS: PARoxetine HCL 20 MG TAB PO SCH (08:12)
[2016-07-31] MEDS: PROPRANOLOL HCL 20 MG TAB PO SCH ×2 (08:12→20:51)
[2016-07-31] MEDS: DOCUSATE SODIUM 100 MG CAP PO SCH ×2 (08:12→20:51)
[2016-07-31] MEDS: FERROUS SULFATE 325 MG (65 MG ELEMENTAL IRON) TAB PO SCH ×2 (08:12→20:51)
[2016-07-31] MEDS: BENZTROPINE MESYLATE 1 MG TAB PO SCH ×2 (08:13→20:51)
[2016-07-31] MEDS: cloZAPine 100 MG TAB PO SCH ×2 (08:13→20:52)
[2016-07-31] MEDS: BISACODYL EC 5 MG TABEC PO PRN (08:13)
[2016-07-31] MEDS: POLYETHYLENE GLYCOL 17 GM PKG PO SCH (08:53)
[2016-07-31 10:19] VITALS: BP 109/53; PULSE 103; RESP 16; O2SAT 95
--- NOTE | 2016-07-31 17:23 | HHI.PYPN ---
Subjective Remarks Patient was seen and case discussed with nursing. Per nursing patient further scratched herself overnight. There appears to be a fresh scratch her for head in the right side of her cheek. Per nursing, this is a time when a one-to-one was not available. Patient now has a one-to-one and nursing and one-to-one confirms that there will be staffed to consistently watch the patient now and overnight. Patient continues to be bothered by auditory hallucinations that are telling her to hurt herself and others. Patient says she scratches to get release from those voices. Remains flat with psychomotor retardation Objective Alert: Yes [place]: Person, Place Mood: Depressed (perhaps improving somewhat) Affect: Flat Memory Intact: Comment (intact) Hallucinations: Auditory (telling her to hurt herself) Delusions: No Delusion Type: Paranoid (responding to internal stimuli) Suicidal: Ideation (No SI) Homicidal: Ideation (No HI) Insight/Judgement Poor Vitals/IOs Vital Signs Date Time Temp Pulse Resp B/P Pulse Ox O2 Delivery O2 Flow Rate FiO2 07/31/16 10:19 103 16 109/53 95 07/31/16 06:02 98.0 Assessment & Plan Problem List: (1) Paranoid type schizophrenia, chronic state with acute exacerbation ICD Code: F20.0 (2) Depressive disorder ICD Code: F32.9 Assessment & Plan Continue current treatment plan, continue Clozaril titration next week, continue one-to-one Justification for Cont. Inpt. Patient will decompensate in a less restrictive setting Request HC Surrog/Guard Advoc?: No Cecilio Villafuerte DO Jul 31, 2016 17:23
[2016-07-31] MEDS: LORazepam 1 MG TAB PO PRN (17:50)
[2016-07-31 18:57] VITALS: BP 109/72; PULSE 107; RESP 18; TEMP 98.4; O2SAT 98
[2016-07-31] MEDS: cloZAPine 25 MG TAB PO SCH (20:50)
[2016-07-31] MEDS: MIRTAZAPINE 15 MG TAB PO SCH (20:50)
[2016-07-31] MEDS: DIVALPROEX DR 500 MG TABEC PO SCH (20:51)
[2016-07-31] MEDS: diphenhydrAMINE HCL 50 MG CAP PO SCH (20:51)
[2016-08-01] MEDS: MUPIROCIN 2% OINT 22 GM TUBE TOPICAL SCH ×3 (05:43→22:00)
[2016-08-01 06:00] VITALS: BP 104/69; PULSE 86; RESP 16; TEMP 97.5
[2016-08-01] MEDS: PROPRANOLOL HCL 20 MG TAB PO SCH ×2 (09:00→21:20)
[2016-08-01] MEDS: DIVALPROEX SODIUM DELAYED RELEASE 250 MG TAB PO SCH (09:00)
[2016-08-01] MEDS: cloZAPine 100 MG TAB PO SCH ×2 (09:00→21:19)
[2016-08-01] MEDS: DOCUSATE SODIUM 100 MG CAP PO SCH ×2 (09:00→21:22)
[2016-08-01] MEDS: FERROUS SULFATE 325 MG (65 MG ELEMENTAL IRON) TAB PO SCH ×2 (09:00→21:00)
[2016-08-01] MEDS: PARoxetine HCL 20 MG TAB PO SCH (09:00)
[2016-08-01] MEDS: BENZTROPINE MESYLATE 1 MG TAB PO SCH ×2 (09:00→21:23)
[2016-08-01] MEDS: POLYETHYLENE GLYCOL 17 GM PKG PO SCH (10:02)
[2016-08-01] MEDS: BISACODYL EC 5 MG TABEC PO PRN (10:03)
--- NOTE | 2016-08-01 14:21 | HHI.PYPN ---
Subjective Remarks Patient was seen and case discussed with nursing. Patient interviewed in bed. She has been consistently watched by a one-to-one per nursing. Per her one-to- one she appears to have less psychomotor retardation. Patient remains irritated by the voices will tell her to harm herself. Mood remains depressed, affect is flat. He is compliant with her medications. And behaving well on the unit Objective Alert: Yes [place]: Person, Place Mood: Depressed (perhaps improving somewhat) Affect: Flat Memory Intact: Comment (not tested) Hallucinations: Auditory (telling her to hurt herself) Delusions: No Delusion Type: Paranoid (no delusions elicited today) Suicidal: Ideation (thoughts of harming herself) Homicidal: Ideation (No HI) Insight/Judgement Poor Vitals/IOs Vital Signs Date Time Temp Pulse Resp B/P Pulse Ox O2 Delivery O2 Flow Rate FiO2 08/01/16 06:00 97.5 86 16 104/69 07/31/16 18:57 98 Assessment & Plan Problem List: (1) Paranoid type schizophrenia, chronic state with acute exacerbation ICD Code: F20.0 (2) Depressive disorder ICD Code: F32.9 Assessment & Plan Continue current treatment plan Justification for Cont. Inpt. Patient will decompensate in a less restrictive setting Request HC Surrog/Guard Advoc?: No Cecilio Villafuerte DO Aug 01, 2016 14:21
[2016-08-01] MEDS: LORazepam 1 MG TAB PO PRN (17:46)
[2016-08-01 18:03] VITALS: BP 119/84; PULSE 105; RESP 18; TEMP 97.9; O2SAT 96
[2016-08-01] MEDS: diphenhydrAMINE HCL 50 MG CAP PO SCH (21:20)
[2016-08-01] MEDS: MIRTAZAPINE 15 MG TAB PO SCH (21:20)
[2016-08-01] MEDS: DIVALPROEX DR 500 MG TABEC PO SCH (21:21)
[2016-08-01] MEDS: cloZAPine 25 MG TAB PO SCH (21:24)
[2016-08-02] MEDS: MUPIROCIN 2% OINT 22 GM TUBE TOPICAL SCH ×3 (06:00→20:14)
[2016-08-02 06:01] VITALS: BP 108/62; PULSE 94; RESP 16; TEMP 97.5; O2SAT 97
[2016-08-02] MEDS: cloZAPine 100 MG TAB PO SCH ×2 (09:00→20:16)
[2016-08-02] MEDS: DIVALPROEX SODIUM DELAYED RELEASE 250 MG TAB PO SCH (09:47)
[2016-08-02] MEDS: PROPRANOLOL HCL 20 MG TAB PO SCH ×2 (09:47→20:13)
[2016-08-02] MEDS: POLYETHYLENE GLYCOL 17 GM PKG PO SCH (09:47)
[2016-08-02] MEDS: BENZTROPINE MESYLATE 1 MG TAB PO SCH ×2 (09:47→20:14)
[2016-08-02] MEDS: PARoxetine HCL 20 MG TAB PO SCH (09:48)
[2016-08-02] MEDS: DOCUSATE SODIUM 100 MG CAP PO SCH ×2 (09:48→20:14)
[2016-08-02] MEDS: FERROUS SULFATE 325 MG (65 MG ELEMENTAL IRON) TAB PO SCH ×2 (09:48→20:17)
--- NOTE | 2016-08-02 10:12 | HHI.PYPN ---
Subjective Remarks Patient seen and examined with nurse. Chart reviewed. Case discussed with nursing staff reports patient was complaining of ongoing command auditory hallucinations and in fact scratched herself over the weekend. She did reportedly sleep well overnight. Techs tell me that the patient had a good day yesterday; she was out and sociable on the unit. On my initial eval, patient was sleeping in bed, monitored by her 1:1. I saw her up later, eating breakfast. She continued to complain of CAH to self-injure but was calm. Somewhat later in the morning, I was called by the nursing staff that the patient was banging her head and had to be placed in restraints. I have ordered the patient medicated with Geodon ETO. Pt seen and examined within 1 hour of restraints as required. Patient has fresh, shallow wounds on her forehead. She apologizes for acting out saying, "the voices just got real bad all of the sudden." I try to explore with patient if there is a medication we can use, either scheduled or PRN, that helps with her agitation, but she says there is none. Denies side effects from current medications. Review of Systems ROS Limitations: Psychotic, Poor Historian Other No physical complaints today prior to self-injury. Objective Alert: Yes [place]: Person, Place Mood: Depressed Affect: Other (affect brighter prior to self-injury) Memory Intact: Comment (Not formally assessed) Hallucinations: Auditory (CAH to self-injure) Delusions: No Delusion Type: Other (No delusions) Suicidal: Ideation (No SI) Homicidal: Ideation (No HI) Insight/Judgement Poor Remarks No motor abnormalities noted. Speech remains a little soft. TP linear. Following self-injury I note two, shallow, oozing lesions on her forehead with some mild underlying edema. No other signs of trauma. Labs Labs reviewed. No new labs. Vitals/IOs Vital Signs Date Time Temp Pulse Resp B/P Pulse Ox O2 Delivery O2 Flow Rate FiO2 08/02/16 06:01 97.5 94 16 108/62 97 Assessment & Plan Problem List: (1) Paranoid type schizophrenia, chronic state with acute exacerbation ICD Code: F20.0 (2) Depressive disorder ICD Code: F32.9 Assessment & Plan Ongoing CAH despite robust dose of clozapine and additional Thorazine. I will check a clozapine level at this point to make sure level is adequate, although I suspect it will be. Given lack of effect, I will replace Thorazine with similarly sedating Zyprexa 10mg qHS in hopes that this will improve CAH. Continue other psychotropics for now, but to consider any one of several adjustments: adding Naltrexone for self-injury; replacing VPA with, e.g. CBZ; replacing Inderal with clonidine. ECT remains a possibility but patient is resistant. Wound care consult and head CT once safe to do so. D/c restraints once able. Continue 1:1 for safety. Continue other medications and care as ordered. Justification for Cont. Inpt. Ongoing impairments in safety. Impairments in reality construction. Medication changes in process. High risk for decompensation in a less restrictive environment. [facility]charge Planning [facility] Request HC Surrog/Guard Advoc?: No Moshe Mcclendon MD Aug 02, 2016 10:12
[2016-08-02] MEDS ORDERED: ZIPRASIDONE MESYLATE 20 MG VIAL IM STA (11:07)
[2016-08-02] MEDS ORDERED: diphenhydrAMINE HCL 50 MG/ML VIAL ONE (11:10)
[2016-08-02] MEDS ORDERED: diphenhydrAMINE HCL 50 MG/ML VIAL IM ONE (11:15)
[2016-08-02] MEDS ORDERED: LORazepam 2 MG/ML VIAL IM ONE (11:15)
[2016-08-02] MEDS: LORazepam 1 MG TAB PO PRN ×2 (16:06→23:16)
[2016-08-02 17:49] VITALS: BP 117/58; PULSE 114; RESP 18; TEMP 99.3; O2SAT 97
[2016-08-02] MEDS: diphenhydrAMINE HCL 50 MG CAP PO SCH (20:13)
[2016-08-02] MEDS: cloZAPine 25 MG TAB PO SCH (20:13)
[2016-08-02] MEDS: MIRTAZAPINE 15 MG TAB PO SCH (20:14)
[2016-08-02] MEDS: DIVALPROEX DR 500 MG TABEC PO SCH (20:14)
[2016-08-02] MEDS: OLANZapine 10 MG TAB PO SCH (20:14)
--- NOTE | 2016-08-02 22:04 | RADRPT ---
EXAM DATE/TIME: 08/02/2016 21:50 [place] COMPARISON: CT BRAIN W/O CONTRAST, July 14, 2016, 20:48. INDICATIONS : Altered mental status and head trauma. RADIATION DOSE: 56.35 CTDIvol (mGy) MEDICAL HISTORY : Seizures. Diabetes mellitus type 2. Schizophrenia and hallucinations. SURGICAL HISTORY : None. ENCOUNTER: Subsequent ACUITY: 1 day PAIN SCALE: 0/10 LOCATION: cranial TECHNIQUE: Multiple contiguous axial images were obtained of the head. Using automated exposure control and adj ustment of the mA and/or kV according to patient size, radiation dose was kept as low as reasonably a chievable to obtain optimal diagnostic quality images. FINDINGS: CEREBRUM: The ventricles are normal for age. No evidence of midline shift, mass lesion, hemorrhage or acute in farction. No extra-axial fluid collections are seen. POSTERIOR FOSSA: The cerebellum and brainstem are intact. The 4th ventricle is midline. The cerebellopontine angle i s unremarkable. EXTRACRANIAL: The visualized portion of the orbits is intact. SKULL: The calvaria is intact. No evidence of skull fracture. CONCLUSION: No acute disease. Jovanny Rivera MD on August 02, 2016 at 22:02 Board Certified Radiologist. This report was verified electronically.
[2016-08-03] MEDS: MUPIROCIN 2% OINT 22 GM TUBE TOPICAL SCH ×3 (05:18→21:10)
[2016-08-03 05:46] VITALS: BP 114/69; PULSE 93; RESP 18; TEMP 98.2; O2SAT 97
[2016-08-03] MEDS: POLYETHYLENE GLYCOL 17 GM PKG PO SCH (08:40)
[2016-08-03] MEDS: DIVALPROEX SODIUM DELAYED RELEASE 250 MG TAB PO SCH (08:40)
[2016-08-03] MEDS: DOCUSATE SODIUM 100 MG CAP PO SCH ×2 (08:41→20:11)
[2016-08-03] MEDS: cloZAPine 100 MG TAB PO SCH ×2 (08:41→20:12)
[2016-08-03] MEDS: PROPRANOLOL HCL 20 MG TAB PO SCH ×2 (08:41→20:11)
[2016-08-03] MEDS: PARoxetine HCL 20 MG TAB PO SCH (08:41)
[2016-08-03] MEDS: BENZTROPINE MESYLATE 1 MG TAB PO SCH ×2 (08:41→20:11)
[2016-08-03] MEDS: FERROUS SULFATE 325 MG (65 MG ELEMENTAL IRON) TAB PO SCH (08:41)
--- NOTE | 2016-08-03 11:53 | HHI.PYPN ---
Subjective Remarks Patient seen and examined with nurseDinorah. Chart reviewed. Case discussed in treatment team with nurse, counselor and recreational therapist. Per nursing staff, patient had no further self injury overnight and was able to go outside for fresh air. She has showered and eaten. Counselor informs me that the patient is #15 on the [facility] wait list. Recreational therapist notes that the patient has been participating in groups. On my examination today, the patient is sleeping in her room, monitored by her one-to-one. She awakens readily. She does complain of some sedation from the medications, but this could be compounded by the ETO she received yesterday. She continues to complain of command auditory hallucinations but seems somewhat less troubled by them. Requests that iron supplementation be discontinued; she doesn't want to take iron in any form. Denies side effects from medications otherwise. Up for meals later and appears to be tolerating the milieu well. Review of Systems Other Except as above, no physical complaints today Objective Alert: Yes [place]: Person, Place Mood: Depressed (perhaps improving somewhat) Affect: Other (remains brighter) Memory Intact: Comment (Not formally assessed) Hallucinations: Auditory (reports ongoing command auditory hallucinations to self injure) Delusions: No Delusion Type: Other (none) Suicidal: Ideation (No SI but ongoing CAH) Homicidal: Ideation (No HI) Insight/Judgement Poor Remarks No abnormal motor movements noted. Grooming and hygiene fair. Thought process linear. Labs Labs reviewed. No new labs. Clozapine level is pending. Last Impressions Head CT 08/02/16 0000 Signed Impressions: Service Date/Time: Tuesday, August 02, 2016 21:50 - CONCLUSION: No acute disease. Jovanny Rivera MD Vitals/IOs Vital Signs Date Time Temp Pulse Resp B/P Pulse Ox O2 Delivery O2 Flow Rate FiO2 08/03/16 05:46 98.2 93 18 114/69 97 Assessment & Plan Problem List: (1) Paranoid type schizophrenia, chronic state with acute exacerbation ICD Code: F20.0 (2) Depressive disorder ICD Code: F32.9 Assessment & Plan Continue Zyprexa as ordered. My plan is to titrate this agent but in light of patient's complaints of sedation I will hold off for now. Continue clozapine as ordered. I will order weekly CBC for tomorrow. Continue other psychotropics as ordered. Wound care recommendations noted and appreciated. Continue one to one for safety. Continue other medications and care as ordered. Justification for Cont. Inpt. Impairment and safety. Impairment in reality construction, namely CAH. Medication changes planned. High risk for decompensation in a less restrictive environment. Discharge Planning [facility] referral, currently #15 on the wait list. Request HC Surrog/Guard Advoc?: No Moshe Mcclendon MD Aug 03, 2016 11:52
[2016-08-03] MEDS: ACETAMINOPHEN 325 MG TAB PO PRN (14:51)
[2016-08-03 18:04] VITALS: BP 118/68; PULSE 112; RESP 18; TEMP 99.2; O2SAT 98
[2016-08-03] MEDS: OLANZapine 10 MG TAB PO SCH (20:11)
[2016-08-03] MEDS: DIVALPROEX DR 500 MG TABEC PO SCH (20:11)
[2016-08-03] MEDS: MIRTAZAPINE 15 MG TAB PO SCH (20:11)
[2016-08-03] MEDS: diphenhydrAMINE HCL 50 MG CAP PO SCH (20:11)
[2016-08-03] MEDS: cloZAPine 25 MG TAB PO SCH (20:12)
[2016-08-04] MEDS: MUPIROCIN 2% OINT 22 GM TUBE TOPICAL SCH ×3 (06:00→21:14)
[2016-08-04 06:02] VITALS: BP 97/61; PULSE 85; RESP 17; TEMP 98.1; O2SAT 96
[2016-08-04 07:41] LABS: AUTOMATED NEUTROPHIL # 2.7 TH/MM3 (1.8-7.7); BASOPHIL % 0.3 % (0.0-2.0); HEMATOCRIT 32.2 % (35.0-46.0); HEMO FLAGS DIFF FINAL; LYMPH % 48.4 % (9.0-44.0); LYMPHOCYTE # 3.5 TH/MM3 (1.0-4.8); MEAN CELL VOLUME 84.1 FL (80.0-100.0); MEAN CORPUSCULAR HEMOGLOBIN 27.6 PG (27.0-34.0); MEAN CORPUSCULAR HGB CONC 32.8 % (32.0-36.0); MONO % 13.3 % (0.0-8.0); PLATELET COUNT 227 TH/MM3 (150-450); RED BLOOD COUNT 3.82 MIL/MM3 (4.00-5.30); RED CELL DISTRIBUTION WIDTH 14.9 % (11.6-17.2); WHITE BLOOD COUNT 7.2 TH/MM3 (4.0-11.0)
[2016-08-04] MEDS: cloZAPine 100 MG TAB PO SCH ×2 (09:00→20:35)
[2016-08-04] MEDS: POLYETHYLENE GLYCOL 17 GM PKG PO SCH (09:00)
[2016-08-04] MEDS: DIVALPROEX SODIUM DELAYED RELEASE 250 MG TAB PO SCH (09:00)
[2016-08-04] MEDS: BENZTROPINE MESYLATE 1 MG TAB PO SCH ×2 (09:00→20:36)
[2016-08-04] MEDS: PROPRANOLOL HCL 20 MG TAB PO SCH (09:00)
[2016-08-04] MEDS: DOCUSATE SODIUM 100 MG CAP PO SCH ×2 (09:00→20:35)
[2016-08-04] MEDS: PARoxetine HCL 20 MG TAB PO SCH (09:00)
--- NOTE | 2016-08-04 10:44 | HHI.PYPN ---
Subjective Remarks Patient seen and examined with counselor. Chart reviewed. Case discussed with nursing staff who reports patient has not engaged in any ongoing self-injurious behavior. She has produced another letter, which I have reviewed. Patient remains on one-to-one for safety. On my examination today, patient reports that mood is slowly improving. Agitation is decreasing. Command auditory hallucinations to self injure, unfortunately, remain unchanged per patient report. Denies side effects from medications except for some lingering mild sedation, less today versus yesterday. She is agreeable to medication adjustments as detailed below. Remains resistant to ECT. Review of Systems ROS Limitations: Psychotic Except as stated in HPI: all other systems reviewed are Neg Objective Alert: Yes [place]: Person, Place Mood: Depressed (slowly improving) Affect: Other (slightly brighter) Memory Intact: Comment (Seems intact on clinical exam.) Hallucinations: Auditory (Ongoing CAH to self-injure) Delusions: No Delusion Type: Other (None elicited) Suicidal: Ideation (No SI but again ongoing CAH) Homicidal: Ideation (No HI) Insight/Judgement Poor Remarks No motor abnormalities noted. Thought process linear. Grooming and hygiene fair. Labs Test 08/04/16 07:05 White Blood Count 7.2 TH/MM3 Red Blood Count 3.82 MIL/MM3 Hemoglobin 10.5 GM/DL Hematocrit 32.2 % Mean Corpuscular Volume 84.1 FL Mean Corpuscular Hemoglobin 27.6 PG Mean Corpuscular Hemoglobin 32.8 % Concent Red Cell Distribution Width 14.9 % Platelet Count 227 TH/MM3 Mean Platelet Volume 8.6 FL Neutrophils (%) (Auto) 38.0 % Lymphocytes (%) (Auto) 48.4 % Monocytes (%) (Auto) 13.3 % Eosinophils (%) (Auto) 0.0 % Basophils (%) (Auto) 0.3 % Neutrophils # (Auto) 2.7 TH/MM3 Lymphocytes # (Auto) 3.5 TH/MM3 Monocytes # (Auto) 1.0 TH/MM3 Eosinophils # (Auto) 0.0 TH/MM3 Basophils # (Auto) 0.0 TH/MM3 CBC Comment DIFF FINAL Differential Comment Labs reviewed. Anemia stable. ANC remains adequate for clozapine therapy. Clozapine level pending. Vitals/IOs Vital Signs Date Time Temp Pulse Resp B/P Pulse Ox O2 Delivery O2 Flow Rate FiO2 08/04/16 06:02 98.1 85 17 97/61 96 Assessment & Plan Problem List: (1) Paranoid type schizophrenia, chronic state with acute exacerbation ICD Code: F20.0 (2) Depressive disorder ICD Code: F32.9 Assessment & Plan Perhaps we are seeing is slow trajectory of improvement. Sedation from medications is less today and so I will titrate patient's Zyprexa to 15 mg at bedtime. Patient's blood pressures are on the low side, and it is not clear that she requires such a robust dose of Inderal, and this could be adding to patient's sensation of sedation. I will taper Inderal to 10 mg twice daily. Continue other psychotropics as ordered. Continue one-to-one for safety. Continue other medications and care as ordered. Justification for Cont. Inpt. Monitoring for impairments in safety. Last self injury was Tuesday. Impairment in reality construction, namely the voices. Medication changes in process. High risk for decompensation in a less restrictive environment. Discharge Planning [facility] psychiatric hospital referral Request HC Surrog/Guard Advoc?: Yes Moshe Mcclendon MD Aug 04, 2016 10:44
[2016-08-04 18:34] VITALS: BP 115/75; PULSE 102; RESP 16; TEMP 98.4; O2SAT 97
[2016-08-04] MEDS: diphenhydrAMINE HCL 50 MG CAP PO SCH (20:35)
[2016-08-04] MEDS: cloZAPine 25 MG TAB PO SCH (20:35)
[2016-08-04] MEDS: DIVALPROEX DR 500 MG TABEC PO SCH (20:36)
[2016-08-04] MEDS: PROPRANOLOL HCL 10 MG TAB PO SCH (20:36)
[2016-08-04] MEDS: MIRTAZAPINE 15 MG TAB PO SCH (20:36)
[2016-08-05] MEDS: MUPIROCIN 2% OINT 22 GM TUBE TOPICAL SCH ×3 (06:00→21:49)
[2016-08-05 06:05] VITALS: BP 124/81; PULSE 87; RESP 16; TEMP 97.9; O2SAT 96
[2016-08-05] MEDS: PARoxetine HCL 20 MG TAB PO SCH (08:12)
[2016-08-05] MEDS: DIVALPROEX SODIUM DELAYED RELEASE 250 MG TAB PO SCH (08:13)
[2016-08-05] MEDS: PROPRANOLOL HCL 10 MG TAB PO SCH ×2 (08:13→20:32)
[2016-08-05] MEDS: DOCUSATE SODIUM 100 MG CAP PO SCH ×2 (08:13→20:32)
[2016-08-05] MEDS: BISACODYL EC 5 MG TABEC PO PRN (08:13)
[2016-08-05] MEDS: cloZAPine 100 MG TAB PO SCH ×2 (09:00→20:31)
[2016-08-05] MEDS: POLYETHYLENE GLYCOL 17 GM PKG PO SCH (09:00)
[2016-08-05] MEDS: BENZTROPINE MESYLATE 1 MG TAB PO SCH ×2 (09:00→20:32)
--- NOTE | 2016-08-05 11:52 | HHI.PYPN ---
Subjective Remarks Patient seen and examined with nurse in counselor. Chart reviewed. Case discussed with nursing staff who reports patient has had no further self- injurious behavior on the unit. On my examination today, the patient presents as somewhat sedated. She does subjectively feel little overmedicated. On the positive side, patient for the first time this admission says that the voices are decreasing in intensity and are not command in nature. Affect once awakened is somewhat brighter. Denies side effects from medications otherwise. We discuss adjusting the timing of the dosing of the Zyprexa to try to minimize sedation while keeping her on the current dose as it seems to be helping, and she is in agreement with this plan. Review of Systems Except as stated in HPI: all other systems reviewed are Neg Objective Alert: Yes [place]: Person, Place Mood: Depressed (continues to slowly improve) Affect: Other (once again slightly brighter) Memory Intact: Comment (Seems intact on clinical exam.) Hallucinations: Auditory (noncommand auditory hallucinations today) Delusions: No Delusion Type: Other (no delusions) Suicidal: Ideation (no SI voiced.) Homicidal: Ideation (no HI voiced.) Insight/Judgement Poor Remarks No motor abnormalities noted. Thought process linear. Speech within normal limits for rate and tone. Speech remains a little soft. Labs Labs reviewed. No new labs. Clozapine level still pending. Vitals/IOs Vital Signs Date Time Temp Pulse Resp B/P Pulse Ox O2 Delivery O2 Flow Rate FiO2 08/05/16 06:05 97.9 87 16 124/81 96 Intake and Output 08/04/16 08/04/16 08/05/16 08:00 16:00 00:00 Intake Total 480 ml Balance 480 ml Assessment & Plan Problem List: (1) Paranoid type schizophrenia, chronic state with acute exacerbation ICD Code: F20.0 (2) Depressive disorder ICD Code: F32.9 Assessment & Plan Adjust Zyprexa dosing to 2.5 mg morning and afternoon and 10 mg at bedtime to try to lessen sedation by distributing the dose throughout the day. Continue other psychotropics as ordered including clozapine, Paxil, Remeron, Depakote. Continue one-to-one for safety for the time being, although if auditory hallucinations are consistently noncommand, we might consider lowering level of observation at some point. Continue other medications and care as ordered. Justification for Cont. Inpt. Impairments and safety. Impairments in reality construction. Medication changes in process. High risk for decompensation in a less restrictive environment. [facility] Request [facility] Surrog/Guard Advoc?: Yes Moshe Mcclendon MD Aug 05, 2016 11:52
[2016-08-05 16:23] VITALS: BP 112/61; PULSE 70; RESP 16; TEMP 98.7; O2SAT 99
[2016-08-05] MEDS: LORazepam 1 MG TAB PO PRN (18:26)
[2016-08-05] MEDS: diphenhydrAMINE HCL 50 MG CAP PO SCH (20:32)
[2016-08-05] MEDS: OLANZapine 10 MG TAB PO SCH (20:32)
[2016-08-05] MEDS: cloZAPine 25 MG TAB PO SCH (20:32)
[2016-08-05] MEDS: MIRTAZAPINE 15 MG TAB PO SCH (20:32)
[2016-08-05] MEDS: DIVALPROEX DR 500 MG TABEC PO SCH (20:32)
[2016-08-06] MEDS: MUPIROCIN 2% OINT 22 GM TUBE TOPICAL SCH ×3 (06:00→22:00)
[2016-08-06 06:01] VITALS: BP 106/62; PULSE 91; RESP 16; TEMP 98; O2SAT 98
[2016-08-06] MEDS: cloZAPine 100 MG TAB PO SCH ×2 (08:38→21:56)
[2016-08-06] MEDS: BENZTROPINE MESYLATE 1 MG TAB PO SCH ×2 (08:40→21:56)
[2016-08-06] MEDS: DOCUSATE SODIUM 100 MG CAP PO SCH ×2 (08:41→21:57)
[2016-08-06] MEDS: DIVALPROEX SODIUM DELAYED RELEASE 250 MG TAB PO SCH (08:42)
[2016-08-06] MEDS: POLYETHYLENE GLYCOL 17 GM PKG PO SCH (08:43)
[2016-08-06] MEDS: PROPRANOLOL HCL 10 MG TAB PO SCH (08:43)
[2016-08-06] MEDS: PARoxetine HCL 20 MG TAB PO SCH (08:44)
[2016-08-06] MEDS: OLANZapine 2.5 MG TAB PO SCH ×2 (08:44→14:03)
[2016-08-06] MEDS: BISACODYL EC 5 MG TABEC PO PRN (08:46)
--- NOTE | 2016-08-06 12:04 | HHI.PYPN ---
Subjective Remarks Patient seen and examined with nurse. Chart reviewed. Case discussed with RN. No further self-injurious behavior. On my exam today, patient is sleeping in bed. Complains of feeling somewhat sedated. Wonders if we can adjust meds to reduce this. Complains of SI "Off and on" with no specific plan or intent. No complaints of voices today, though. Denies side effects from medications otherwise. Review of Systems Except as stated in HPI: all other systems reviewed are Neg Objective Alert: Yes [place]: Person, Place Mood: Depressed Affect: Other (fairly full and reactive once fully awake.) Memory Intact: Comment (Remains intact) Hallucinations: Other (No AVH reported.) Delusions: No Delusion Type: Other (no delusions) Suicidal: Ideation (Reports SI "off and on." ) Homicidal: Ideation (no HI voiced.) Insight/Judgement Poor Remarks No abnormal motor movements noted. Patient does seem a little sedated. TP linear. Speech wnl rate, tone, volume. Labs Labs reviewed. No new labs. Vitals/IOs Vital Signs Date Time Temp Pulse Resp B/P Pulse Ox O2 Delivery O2 Flow Rate FiO2 08/06/16 06:01 98.0 91 16 106/62 98 Assessment & Plan Problem List: (1) Paranoid type schizophrenia, chronic state with acute exacerbation ICD Code: F20.0 (2) Depressive disorder ICD Code: F32.9 Assessment & Plan Patient struggling to tolerate titration of Zyprexa secondary to complaints of sedation. I will drop the dose back to 10mg qHS, but I hope we can try to re- titrate at some later point. If not, we may need to consider a different, less sedating antipsychotic. I will discontinue Inderal to see if this will reduce sluggish feeling as it seems to be providing no real benefit. Continue one-to- one for safety. Continue to monitor on the high acuity unit. Continue other medications and care as ordered. Justification for Cont. Inpt. Impairment and safety. Medication changes and process. High risk for decompensation in a less restrictive environment. Discharge Planning Pending psychiatric stabilization. [facility] referral initiated. Request HC Surrog/Guard Advoc?: Yes Moshe Mcclendon MD Aug 06, 2016 12:04
[2016-08-06 17:00] VITALS: BP 108/69; PULSE 124; RESP 18; TEMP 99
[2016-08-06] MEDS: ACETAMINOPHEN 325 MG TAB PO PRN (17:37)
[2016-08-06] MEDS: DIVALPROEX DR 500 MG TABEC PO SCH (21:56)
[2016-08-06] MEDS: cloZAPine 25 MG TAB PO SCH (21:56)
[2016-08-06] MEDS: OLANZapine 10 MG TAB PO SCH (21:56)
[2016-08-06] MEDS: MIRTAZAPINE 15 MG TAB PO SCH (21:56)
[2016-08-06] MEDS: diphenhydrAMINE HCL 50 MG CAP PO SCH (21:57)
[2016-08-07 00:40] LABS: CLOZAPINE/NORCLOZAPINE TOTAL 633 ng/mL (>450); NORCLOZAPINE 184 ng/mL (())
[2016-08-07] MEDS: MUPIROCIN 2% OINT 22 GM TUBE TOPICAL SCH ×3 (06:00→22:00)
[2016-08-07 06:34] VITALS: BP 117/75; PULSE 92; RESP 18; TEMP 97.3; O2SAT 97
[2016-08-07] MEDS: POLYETHYLENE GLYCOL 17 GM PKG PO SCH (09:00)
[2016-08-07] MEDS: DOCUSATE SODIUM 100 MG CAP PO SCH ×2 (09:56→21:14)
[2016-08-07] MEDS: BENZTROPINE MESYLATE 1 MG TAB PO SCH ×2 (09:56→21:14)
[2016-08-07] MEDS: PARoxetine HCL 20 MG TAB PO SCH (09:57)
[2016-08-07] MEDS: cloZAPine 100 MG TAB PO SCH ×2 (09:57→21:12)
[2016-08-07] MEDS: DIVALPROEX SODIUM DELAYED RELEASE 250 MG TAB PO SCH (09:57)
--- NOTE | 2016-08-07 12:42 | HHI.PYPN ---
Subjective Remarks Pt seen and discussed with staff. She has been calm and cooperative on unit. She reports that AH persists but they are "more off and on". She reports mood is "a bit better" today and SI persists but is less intense. No medication side effects. No HI. Objective Alert: Yes [place]: Person, Place Mood: Depressed Affect: Other ( full and reactive ) Memory Intact: Comment (Remains intact) Hallucinations: Auditory (intermittent) Delusions: No Delusion Type: Other (no delusions) Suicidal: Ideation (less intense) Homicidal: Ideation (denies) Insight/Judgement limited Vitals/IOs Vital Signs Date Time Temp Pulse Resp B/P Pulse Ox O2 Delivery O2 Flow Rate FiO2 08/07/16 06:34 97.3 92 18 117/75 97 Assessment & Plan Problem List: (1) Paranoid type schizophrenia, chronic state with acute exacerbation ICD Code: F20.0 (2) Depressive disorder ICD Code: F32.9 Assessment & Plan Continue current tx plan. Estimated LOS: days Justification for Cont. Inpt. impairments in reality construction and safety Request HC Surrog/Guard Advoc?: Yes Diane Longoria MD Aug 07, 2016 12:42
[2016-08-07 17:18] VITALS: BP 120/73; PULSE 125; RESP 18; TEMP 98.7; O2SAT 98
[2016-08-07] MEDS: diphenhydrAMINE HCL 50 MG CAP PO SCH (21:12)
[2016-08-07] MEDS: cloZAPine 25 MG TAB PO SCH (21:12)
[2016-08-07] MEDS: DIVALPROEX DR 500 MG TABEC PO SCH (21:14)
[2016-08-07] MEDS: MIRTAZAPINE 15 MG TAB PO SCH (21:14)
[2016-08-07] MEDS: OLANZapine 10 MG TAB PO SCH (21:14)
[2016-08-08] MEDS: MUPIROCIN 2% OINT 22 GM TUBE TOPICAL SCH ×3 (06:00→22:00)
[2016-08-08] MEDS: DOCUSATE SODIUM 100 MG CAP PO SCH ×2 (08:24→20:38)
[2016-08-08] MEDS: PARoxetine HCL 20 MG TAB PO SCH (08:24)
[2016-08-08] MEDS: POLYETHYLENE GLYCOL 17 GM PKG PO SCH (08:24)
[2016-08-08] MEDS: BENZTROPINE MESYLATE 1 MG TAB PO SCH ×2 (08:24→20:40)
[2016-08-08] MEDS: DIVALPROEX SODIUM DELAYED RELEASE 250 MG TAB PO SCH (08:24)
[2016-08-08] MEDS: cloZAPine 100 MG TAB PO SCH ×2 (08:24→20:39)
--- NOTE | 2016-08-08 12:34 | HHI.PYPN ---
Subjective Remarks Pt seen and discussed with staff. Pt has been more withdrawn and isolative today. She reports that she had nightmares last night. AH persist but pt denies SI today. No medication side effects. NO SI/HI. Review of Systems Psychiatric: COMPLAINS OF: Hallucinations Objective Alert: Yes [place]: Person, Place Mood: Depressed Affect: Other ( full and reactive ) Memory Intact: Comment (Remains intact) Hallucinations: Auditory (intermittent) Delusions: No Delusion Type: Other (no delusions) Suicidal: Ideation (denies today) Homicidal: Ideation (denies) Insight/Judgement poor Vitals/IOs Vital Signs Date Time Temp Pulse Resp B/P Pulse Ox O2 Delivery O2 Flow Rate FiO2 08/07/16 17:18 98.7 125 18 120/73 98 Assessment & Plan Problem List: (1) Paranoid type schizophrenia, chronic state with acute exacerbation ICD Code: F20.0 (2) Depressive disorder ICD Code: F32.9 Assessment & Plan Continue current tx plan. Estimated LOS: days Justification for Cont. Inpt. impairments in safety and reality testing Request HC Surrog/Guard Advoc?: Yes Diane Longoria MD Aug 08, 2016 12:34
[2016-08-08 18:30] VITALS: BP 125/60; PULSE 107; RESP 18; TEMP 97.8; O2SAT 97
[2016-08-08] MEDS: ACETAMINOPHEN 325 MG TAB PO PRN (20:38)
[2016-08-08] MEDS: diphenhydrAMINE HCL 50 MG CAP PO SCH (20:39)
[2016-08-08] MEDS: MIRTAZAPINE 15 MG TAB PO SCH (20:39)
[2016-08-08] MEDS: DIVALPROEX DR 500 MG TABEC PO SCH (20:39)
[2016-08-08] MEDS: cloZAPine 25 MG TAB PO SCH (20:39)
[2016-08-08] MEDS: OLANZapine 10 MG TAB PO SCH (20:39)
[2016-08-08] MEDS: LORazepam 1 MG TAB PO PRN (23:41)
[2016-08-09 05:53] VITALS: BP 118/67; PULSE 94; RESP 17; TEMP 97.9; O2SAT 93
[2016-08-09] MEDS: MUPIROCIN 2% OINT 22 GM TUBE TOPICAL SCH ×3 (06:00→22:00)
[2016-08-09] MEDS: DIVALPROEX SODIUM DELAYED RELEASE 250 MG TAB PO SCH (08:50)
[2016-08-09] MEDS: BENZTROPINE MESYLATE 1 MG TAB PO SCH ×2 (08:51→20:27)
[2016-08-09] MEDS: PARoxetine HCL 20 MG TAB PO SCH (08:51)
[2016-08-09] MEDS: POLYETHYLENE GLYCOL 17 GM PKG PO SCH (08:52)
[2016-08-09] MEDS: cloZAPine 100 MG TAB PO SCH (08:52)
[2016-08-09] MEDS: DOCUSATE SODIUM 100 MG CAP PO SCH ×2 (08:52→20:27)
--- NOTE | 2016-08-09 10:43 | HHI.PYPN ---
Subjective Remarks Patient seen and examined with nurse. Chart reviewed. Case discussed with nursing staff. There has been no self injury or attempts at self injury in several days. For me today, the patient remains fairly sleepy. She does awaken briefly but doesn't engage much in conversation. Nursing staff assures me that she usually is more awake in the afternoons. No SI or HI voiced. No reported side effects from medications. Review of Systems ROS Limitations: Poor Historian Except as stated in HPI: all other systems reviewed are Neg Objective Alert: Yes [place]: Person (at least) Mood: Depressed Affect: Other (difficult to assess given limited sample) Memory Intact: Comment (Remains intact) Hallucinations: Other (difficult to assess, limited sample) Delusions: No Delusion Type: Other (difficult to assess, limited sample) Suicidal: Ideation (no SI voiced) Homicidal: Ideation (no HI voiced) Insight/Judgement Poor Remarks No motor abnormalities noted. Labs Labs reviewed. Clozapine level resulted and was adequate for therapeutic effect. Vitals/IOs Vital Signs Date Time Temp Pulse Resp B/P Pulse Ox O2 Delivery O2 Flow Rate FiO2 08/09/16 05:53 97.9 94 17 118/67 93 Assessment & Plan Problem List: (1) Paranoid type schizophrenia, chronic state with acute exacerbation ICD Code: F20.0 (2) Depressive disorder ICD Code: F32.9 Assessment & Plan Still struggling with morning sedation. I am reluctant to decrease antipsychotics, both of which are sedating, because we seem to be making some progress in reducing symptoms. I will try moving some of her clozapine from the morning dose to the evening dose. Continue to monitor on the inpatient unit. Given that there has been no evidence of self injury and several days, I will decrease level of observation to close observation in light of sight of staff. Low threshold to place the patient back on one-to-one if necessary. Continue other medications and care as ordered. Justification for Cont. Inpt. Impairments in reality construction, social functioning. Medication changes. Risk for decompensation in a less restrictive environment. [facility] Request HC Surrog/Guard Advoc?: Yes Moshe Mcclendon MD Aug 09, 2016 10:43
--- NOTE | 2016-08-09 16:20 | RADRPT ---
EXAM DATE/TIME: 08/09/2016 15:30 [place] COMPARISON: HAND RIGHT LIMITED (2VWS), April 12, 2016, 14:59. INDICATIONS : Left knee pain after fall. MEDICAL HISTORY : Seizures. Diabetes mellitus type 2. Schizophrenia and hallucinations. SURGICAL HISTORY : None. ENCOUNTER: Initial ACUITY: 1 day PAIN SCORE: 5/10 LOCATION: Left knee FINDINGS: There is a large joint effusion in the suprapatella bursa. The osseous structures are intact. No candy ined foreign body is seen. CONCLUSION: 1. Joint effusion. No acute abnormality. Pravin Teixeira MD on August 09, 2016 at 16:18 Board Certified Radiologist. This report was verified electronically.
[2016-08-09 18:00] VITALS: BP 123/68; PULSE 97; RESP 18; TEMP 98.8; O2SAT 97
[2016-08-09] MEDS: DIVALPROEX DR 500 MG TABEC PO SCH (20:25)
[2016-08-09] MEDS: MIRTAZAPINE 15 MG TAB PO SCH (20:26)
[2016-08-09] MEDS: diphenhydrAMINE HCL 50 MG CAP PO SCH (20:26)
[2016-08-09] MEDS: LORazepam 1 MG TAB PO PRN (20:27)
[2016-08-09] MEDS: ACETAMINOPHEN 325 MG TAB PO PRN (20:28)
[2016-08-09] MEDS: OLANZapine 10 MG TAB PO SCH (20:28)
[2016-08-09] MEDS ORDERED: cloZAPine 100 MG TAB PO ONE (21:00)
[2016-08-10] MEDS: MUPIROCIN 2% OINT 22 GM TUBE TOPICAL SCH ×3 (06:00→22:00)
[2016-08-10 06:02] VITALS: BP 111/76; PULSE 92; RESP 18; TEMP 98.2; O2SAT 97
[2016-08-10] MEDS: DIVALPROEX SODIUM DELAYED RELEASE 250 MG TAB PO SCH (09:00)
[2016-08-10] MEDS: cloZAPine 100 MG TAB PO SCH ×2 (09:36→20:27)
[2016-08-10] MEDS: DOCUSATE SODIUM 100 MG CAP PO SCH ×2 (09:36→20:28)
[2016-08-10] MEDS: POLYETHYLENE GLYCOL 17 GM PKG PO SCH (09:36)
[2016-08-10] MEDS: BENZTROPINE MESYLATE 1 MG TAB PO SCH ×2 (09:36→20:28)
[2016-08-10] MEDS: PARoxetine HCL 20 MG TAB PO SCH (09:36)
[2016-08-10 10:39] LABS: AUTOMATED NEUTROPHIL # 3.1 TH/MM3 (1.8-7.7); BASOPHIL % 0.5 % (0.0-2.0); EOSINOPHIL % 0.2 % (0.0-4.0); HEMATOCRIT 38.3 % (35.0-46.0); HEMO FLAGS DIFF FINAL; LYMPH % 46.1 % (9.0-44.0); LYMPHOCYTE # 3.4 TH/MM3 (1.0-4.8); MEAN CELL VOLUME 85.6 FL (80.0-100.0); MEAN CORPUSCULAR HEMOGLOBIN 26.7 PG (27.0-34.0); MEAN CORPUSCULAR HGB CONC 31.2 % (32.0-36.0); MONO % 11.4 % (0.0-8.0); NEUT % 41.8 % (16.0-70.0); PLATELET COUNT 257 TH/MM3 (150-450); RED BLOOD COUNT 4.47 MIL/MM3 (4.00-5.30); RED CELL DISTRIBUTION WIDTH 15.2 % (11.6-17.2); WHITE BLOOD COUNT 7.5 TH/MM3 (4.0-11.0)
[2016-08-10 11:04] LABS: BICARBONATE 25.2 MEQ/L (21.0-32.0); POTASSIUM 4.3 MEQ/L (3.5-5.1)
--- NOTE | 2016-08-10 12:08 | HHI.PYPN ---
Subjective Remarks Patient seen and examined with nurse. Chart reviewed. Case discussed in treatment team with nurse, counselor and occupational therapist. Per nursing staff, patient remains flat and watchful. Counselor notes that the patient is # 14 on the [facility] wait list. On my examination today, the patient is more awake and alert. She feels like her mood is incrementally improved. She does remain fairly depressed however. She does not describe any active suicidal ideation. Denies any urge to self injure and agrees to tell the nurse if this should change. Voices seemed to have abated somewhat. Denies side effects from medications. Review of Systems Except as stated in HPI: all other systems reviewed are Neg Objective Alert: Yes [place]: Person, Place, Date, Situation Mood: Depressed (perhaps improving somewhat) Affect: Blunted Memory Intact: Comment (intact) Hallucinations: Auditory (command auditory hallucinations perhaps lessening) Delusions: No Delusion Type: Other (no delusions) Suicidal: Ideation (no active suicidal ideation) Homicidal: Ideation (no homicidal ideation) Insight/Judgement Poor Remarks No motor abnormalities noted. Thought process linear. Speech more clear and voluminous today. Grooming and hygiene fair. Labs Labs reviewed. CBC unremarkable. ANC remains adequate for clozapine therapy. BMP unremarkable except for mild hyperglycemia in a nonfasting sample. Test 08/10/16 10:26 White Blood Count 7.5 TH/MM3 Red Blood Count 4.47 MIL/MM3 Hemoglobin 11.9 GM/DL Hematocrit 38.3 % Mean Corpuscular Volume 85.6 FL Mean Corpuscular Hemoglobin 26.7 PG Mean Corpuscular Hemoglobin 31.2 % Concent Red Cell Distribution Width 15.2 % Platelet Count 257 TH/MM3 Mean Platelet Volume 8.5 FL Neutrophils (%) (Auto) 41.8 % Lymphocytes (%) (Auto) 46.1 % Monocytes (%) (Auto) 11.4 % Eosinophils (%) (Auto) 0.2 % Basophils (%) (Auto) 0.5 % Neutrophils # (Auto) 3.1 TH/MM3 Lymphocytes # (Auto) 3.4 TH/MM3 Monocytes # (Auto) 0.8 TH/MM3 Eosinophils # (Auto) 0.0 TH/MM3 Basophils # (Auto) 0.0 TH/MM3 CBC Comment DIFF FINAL Differential Comment Sodium Level 138 MEQ/L Potassium Level 4.3 MEQ/L Chloride Level 105 MEQ/L Carbon Dioxide Level 25.2 MEQ/L Anion Gap 8 MEQ/L Blood Urea Nitrogen 6 MG/DL Creatinine 0.76 MG/DL Estimat Glomerular Filtration 108 ML/MIN Rate Random Glucose 107 MG/DL Calcium Level 8.8 MG/DL Vitals/IOs Vital Signs Date Time Temp Pulse Resp B/P Pulse Ox O2 Delivery O2 Flow Rate FiO2 08/10/16 06:02 98.2 92 18 111/76 97 Assessment & Plan Problem List: (1) Paranoid type schizophrenia, chronic state with acute exacerbation ICD Code: F20.0 (2) Depressive disorder ICD Code: F32.9 Assessment & Plan Titrate Depakote for additional mood stabilization. Continue other psychotropics including clozapine, Zyprexa, Paxil, Remeron as ordered for now. Continue to observe closely on the inpatient psychiatric unit. A low threshold to reintroduce one-to-one sitter if needed. Continue other medications and care as ordered. Justification for Cont. Inpt. Monitoring for impairments in safety. Medication changes in process. High risk for decompensation in a less restrictive environment. Discharge Planning Patient is presently #14 on the [facility] wait list. Request HC Surrog/Guard Advoc?: Yes Moshe Mcclendon MD Aug 10, 2016 12:08
--- NOTE | 2016-08-10 16:38 | HHI.PR ---
Subjective Remarks Reconsulted for left knee pain. Patient seen today. Reports left knee pain and swelling. Pain is rated 4/10, nonradiating, dull and achy, aggravated by movement, relieved by rest. Denies any trauma. Did not recall if she twisted or bumped her knee. Denies any history of arthritis. X-ray was done, showed joint effusion. No acute abnormality. Otherwise, denies SOB/ dyspnea. Denies chest pain, palpitations, headaches, dizziness. Denies fevers, chills, n/v/d. Objective Vitals Vital Signs Date Time Temp Pulse Resp B/P Pulse Ox O2 Delivery O2 Flow Rate FiO2 08/10/16 06:02 98.2 92 18 111/76 97 08/09/16 18:00 98.8 97 18 123/68 97 Result Diagram: 08/10/16 1026 08/10/16 1026 Imaging Last Impressions Knee X-Ray 08/09/16 0000 Signed Impressions: Service Date/Time: Tuesday, August 09, 2016 15:30 - CONCLUSION: 1. Joint effusion. No acute abnormality. Pravin Teixeira MD Head CT 08/02/16 0000 Signed Impressions: Service Date/Time: Tuesday, August 02, 2016 21:50 - CONCLUSION: No acute disease. Jovanny Rivera MD Objective Remarks GENERAL: This is a well-nourished, well-developed patient, in no apparent distress. SKIN: Warm and dry. HEENT: Normocephalic. Pupils equal round and reactive. Nose without bleeding. Airway patent. NECK: Trachea midline. No JVD. Supple. CARDIOVASCULAR: Regular rate and rhythm without murmurs, gallops, or rubs. RESPIRATORY: Clear to auscultation. Breath sounds equal bilaterally. No wheezes , rales, or rhonchi. GASTROINTESTINAL: Abdomen soft, non-tender, nondistended. Bowel Sounds normoactive x4. MUSCULOSKELETAL: Extremities without clubbing, cyanosis. Left knee lightly swollen, no erythema, mild tenderness to palpation of the proximal and medial side, no clicks, R OM within normal. Negative drawer tests. Negative Martinez cyst. Negative valgus and varus stress test. NEUROLOGICAL: Awake and alert. Flat affect. No focal neuro deficit. BALLESTEROS. Normal speech. A/P Problem List: (1) Depressive disorder ICD Code: F32.9 Status: Acute (2) Paranoid type schizophrenia, chronic state with acute exacerbation ICD Code: F20.0 Status: Acute (3) Schizophrenia ICD Code: F20.9 Status: Acute (4) Knee pain, acute ICD Code: M25.569 Status: Acute Assessment and Plan This is a 31-year-old female patient with past medical history of schizophrenia currently admitted inpatient psychiatric services. Been consulted for assistance with self injury to face Schizophrenia -Management per psychiatric services Left knee swelling and pain - X-ray done showed joint effusion. No acute abnormality - Negative Martinez cyst, negative drawer test, negative valgus and valgus stress tests. - Check ESR -Weightbearing as tolerated. Abrasion right side of face- self-inflicted - Healed Tachycardic- long standing, occasional - improved. - Encourage by mouth fluid intake - EKG 07/16/11 shows SR HR 88 - Echocardiogram gram reviewed summary wall thickness at the upper limits of normal systolic function was normal EF ejection fraction 60-65% wall motion is normal there's no regional wall motion abnormalities. Tobacco abuse -Patient counseled on health risk of tobacco abuse encouraged to abstain DVT prophylaxis patient is ambulatory Written by Janeth Lima, acting as scribe for Dr. Nichols on 08/10/16 at 16:38. All or portions of this note were transcribed by scribe Janeth Lima. I, Dr. Kulwant Nichols personally performed the history, physical exam, and medical decision making; and confirmed the accuracy of the information in the transcribed note. Authenticated by Dr. Kulwant Nichols on 08/10/16 at 17:35. Problem Qualifiers (1) Schizophrenia: Qualified Code: F20.0 - Paranoid schizophrenia Janeth Malik Aug 10, 2016 16:38 Kulwant Nichols MD Aug 10, 2016 17:35
[2016-08-10 17:31] LABS: ALKALINE PHOSPHATASE 70 U/L (45-117); ALT (GPT) 22 U/L (10-53); AST (GOT) 21 U/L (15-37); INDIRECT BILIRUBIN 0.1 MG/DL (0.0-0.8); TOTAL BILIRUBIN ADULT 0.2 MG/DL (0.2-1.0)
[2016-08-10 17:37] VITALS: BP 135/69; PULSE 111; RESP 18; TEMP 98.6; O2SAT 97
[2016-08-10] MEDS: ACETAMINOPHEN 325 MG TAB PO PRN (18:27)
[2016-08-10] MEDS: DIVALPROEX DR 500 MG TABEC PO SCH (20:27)
[2016-08-10] MEDS: diphenhydrAMINE HCL 50 MG CAP PO SCH (20:27)
[2016-08-10] MEDS: MIRTAZAPINE 15 MG TAB PO SCH (20:28)
[2016-08-10] MEDS: OLANZapine 10 MG TAB PO SCH (20:33)
[2016-08-11] MEDS: MUPIROCIN 2% OINT 22 GM TUBE TOPICAL SCH ×3 (06:00→20:10)
[2016-08-11 06:04] VITALS: BP 115/70; PULSE 93; RESP 18; TEMP 97.7; O2SAT 97
[2016-08-11] MEDS: BENZTROPINE MESYLATE 1 MG TAB PO SCH ×2 (09:23→20:10)
[2016-08-11] MEDS: DOCUSATE SODIUM 100 MG CAP PO SCH ×2 (09:23→20:10)
[2016-08-11] MEDS: cloZAPine 100 MG TAB PO SCH ×2 (09:23→20:09)
[2016-08-11] MEDS: PARoxetine HCL 20 MG TAB PO SCH (09:23)
[2016-08-11] MEDS: POLYETHYLENE GLYCOL 17 GM PKG PO SCH (09:25)
[2016-08-11] MEDS: DIVALPROEX SODIUM DELAYED RELEASE 250 MG TAB PO SCH (09:25)
[2016-08-11] MEDS: ACETAMINOPHEN 325 MG TAB PO PRN ×2 (09:25→20:12)
--- NOTE | 2016-08-11 11:31 | HHI.PYPN ---
Subjective Remarks Patient seen and examined with nurse. Chart reviewed. Case discussed with nursing staff. Nursing staff notes that the patient seems somewhat more interactive and is responding to questions quicker. On my examination today, patient is dozing in her room. She does open her eyes briefly but is not interested in extended conversation today. No reported side effects from medications. No other issues noted. Review of Systems ROS Limitations: Poor Historian Except as stated in HPI: all other systems reviewed are Neg Objective Alert: Yes [place]: Person, Place, Date, Situation Mood: Depressed (suspect patient remains fairly depressed) Affect: Flat Memory Intact: Comment (not assessed) Hallucinations: Other (none reported) Delusions: No Delusion Type: Other (none elicited) Suicidal: Ideation (no SI voiced) Homicidal: Ideation (no HI voiced) Insight/Judgement Poor Remarks No motor abnormalities noted Labs Labs reviewed Vitals/IOs Vital Signs Date Time Temp Pulse Resp B/P Pulse Ox O2 Delivery O2 Flow Rate FiO2 08/11/16 06:04 97.7 93 18 115/70 97 Assessment & Plan Problem List: (1) Paranoid type schizophrenia, chronic state with acute exacerbation ICD Code: F20.0 (2) Depressive disorder ICD Code: F32.9 Assessment & Plan Continue current psychotropics as ordered. Continue to monitor on the inpatient unit. Appreciate hospitalist input. Continue other medications and care as ordered. Justification for Cont. Inpt. Impairment and safety. High risk for decompensation in a less restrictive environment. Discharge Planning [facility]. Request HC Surrog/Guard Advoc?: Yes Moshe Mcclendon MD Aug 11, 2016 11:31
--- NOTE | 2016-08-11 14:30 | HHI.PR ---
Subjective Remarks Follow-up on patient with schizophrenia and left knee pain/swelling. Patient seen and examined today. Patient reports improvement in the left knee pain. Still swollen. She denies any complaints of locking but does report the knee occasionally pops. She denies any issues with instability of the knee buckling/ giving out on her. Denies any other acute medical complaints include chest pain shortness of breath or abdominal pain. No fevers or chills. Objective Vitals Vital Signs Date Time Temp Pulse Resp B/P Pulse Ox O2 Delivery O2 Flow Rate FiO2 08/11/16 06:04 97.7 93 18 115/70 97 08/10/16 17:37 98.6 111 18 135/69 97 Result Diagram: 08/10/16 1026 08/10/16 1026 Imaging Last Impressions Knee X-Ray 08/09/16 0000 Signed Impressions: Service Date/Time: Tuesday, August 09, 2016 15:30 - CONCLUSION: 1. Joint effusion. No acute abnormality. Pravin Teixeira MD Head CT 08/02/16 0000 Signed Impressions: Service Date/Time: Tuesday, August 02, 2016 21:50 - CONCLUSION: No acute disease. Jovanny Rivera MD Objective Remarks GENERAL: This is a well-nourished, well-developed patient, in no apparent distress. Sleeping but easily arousable. SKIN: Warm and dry. HEENT: Atraumatic. Normocephalic. EOMI. CARDIOVASCULAR: Regular rate and rhythm without murmurs, gallops, or rubs. RESPIRATORY: Clear to auscultation. Breath sounds equal bilaterally. No wheezes , rales, or rhonchi. GASTROINTESTINAL: Abdomen soft, non-tender, nondistended. Bowel Sounds normoactive x4. MUSCULOSKELETAL: Extremities without clubbing, cyanosis. Left knee slightly swollen, no erythema or warmth. Mild tenderness to palpation diffusely. ROM normal. NEUROLOGICAL: Awake and alert. Flat affect. No focal neuro deficit. BALLESTEROS. Normal speech. Medications and IVs Current Medications Medications (Trade) Dose Ordered Sig/Jae Route Start Time Stop Time Status Last Admin (Ativan) 1 mg Q6H PRN PO 07/12/16 16:15 08/09/16 20:27 (Ativan Inj) 1 mg Q6H PRN IM 07/12/16 16:15 07/27/16 18:21 (Tylenol) 650 mg Q4H PRN PO 07/13/16 08:15 08/11/16 09:25 (Milk Of Magnesia Liq) 30 ml DAILY PRN PO 07/13/16 08:15 07/27/16 12:15 (Mag-Al Plus Susp Liq) 30 ml Q6H PRN PO 07/13/16 08:15 07/23/16 00:49 (Benadryl) 50 mg HS PO 07/13/16 21:00 08/10/16 20:27 (Remeron) 45 mg HS PO 07/13/16 21:00 08/10/16 20:28 (Miralax) 17 gm DAILY PO 07/13/16 09:00 08/11/16 09:25 (Colace) 200 mg BID PO 07/13/16 09:00 08/11/16 09:23 (Timi Rubalcava) 1,000 mg HS PO 07/13/16 21:00 08/10/16 20:27 (Bactroban 2% Oint) 1 applic Q8HR TOPICAL 07/15/16 22:00 08/10/16 14:12 (Pill Splitter) 1 ea UNSCH PRN OTHER 07/20/16 12:30 (Cogentin) 1.5 mg BID PO 07/26/16 21:00 08/11/16 09:23 (Dulcolax Ec) 10 mg DAILY PRN PO 07/27/16 12:45 08/06/16 08:46 (Paxil) 40 mg DAILY PO 07/30/16 09:00 08/11/16 09:23 (ZyPREXA) 10 mg HS PO 08/05/16 21:00 08/10/16 20:33 (Clozaril) 100 mg DAILY PO 08/10/16 09:00 08/11/16 09:23 (Clozaril) 450 mg HS PO 08/10/16 21:00 08/10/16 20:27 (Timi Rubalcava) 1,000 mg DAILY PO 08/11/16 09:00 08/11/16 09:25 A/P Problem List: (1) Depressive disorder ICD Code: F32.9 Status: Acute (2) Paranoid type schizophrenia, chronic state with acute exacerbation ICD Code: F20.0 Status: Acute (3) Schizophrenia ICD Code: F20.9 Status: Acute (4) Knee pain, acute ICD Code: M25.569 Status: Acute Assessment and Plan This is a 31-year-old female patient with past medical history of schizophrenia currently admitted inpatient psychiatric services. Consulted for assistance with self injury to face. Schizophrenia -Management per psychiatric services Left knee swelling and pain - Improving - Denies history of trauma - X-ray done showed joint effusion. No acute abnormality. - No appreciable erythema or warmth on exam - 08/10 WBC 7.5. CRP less than 0.29. ESR pending. - We'll consider MRI study if patient's symptoms worsen or any indication of infectious process pending ESR results - Weightbearing as tolerated. Abrasion right side of face - self-inflicted - Healed Tachycardic, occasional - Chronic, stable - Encourage by mouth fluid intake - EKG 07/16/11 shows SR HR 88 - Echocardiogram reviewed - wall thickness at the upper limits of normal systolic function was normal EF ejection fraction 60-65% wall motion is normal there's no regional wall motion abnormalities. Tobacco abuse -Patient counseled on health risk of tobacco abuse encouraged to abstain DVT prophylaxis - patient is ambulatory Written by eRgla Simms PA-C acting as scribe for Dr. Nichols on 08/11/16 at 13:20. All or portions of this note were transcribed by scribe Regla Simms PA-C. I, Dr. Kulwant Nichols personally performed the history, physical exam, and medical decision making; and confirmed the accuracy of the information in the transcribed note. Authenticated by Dr. Kulwant Nichols on 08/11/16 at 16:12. Problem Qualifiers (1) Schizophrenia: Qualified Code: F20.0 - Paranoid schizophrenia Regla Simms Aug 11, 2016 14:30 Kulwant Nichols MD Aug 11, 2016 16:12
[2016-08-11 17:56] VITALS: BP 113/67; PULSE 110; RESP 16; TEMP 98.6; O2SAT 97
[2016-08-11] MEDS: OLANZapine 10 MG TAB PO SCH (20:09)
[2016-08-11] MEDS: DIVALPROEX DR 500 MG TABEC PO SCH (20:09)
[2016-08-11] MEDS: LORazepam 1 MG TAB PO PRN (20:09)
[2016-08-11] MEDS: MIRTAZAPINE 15 MG TAB PO SCH (20:10)
[2016-08-11] MEDS: diphenhydrAMINE HCL 50 MG CAP PO SCH (20:10)
[2016-08-12] MEDS: MUPIROCIN 2% OINT 22 GM TUBE TOPICAL SCH ×3 (05:12→20:51)
[2016-08-12] MEDS: cloZAPine 100 MG TAB PO SCH ×2 (08:49→20:30)
[2016-08-12] MEDS: BENZTROPINE MESYLATE 1 MG TAB PO SCH ×2 (08:50→20:31)
[2016-08-12] MEDS: PARoxetine HCL 20 MG TAB PO SCH (08:50)
[2016-08-12] MEDS: DIVALPROEX SODIUM DELAYED RELEASE 250 MG TAB PO SCH (08:51)
[2016-08-12] MEDS: DOCUSATE SODIUM 100 MG CAP PO SCH ×2 (08:52→20:25)
[2016-08-12] MEDS: POLYETHYLENE GLYCOL 17 GM PKG PO SCH (09:00)
--- NOTE | 2016-08-12 10:04 | HHI.PYPN ---
Subjective Remarks Patient seen and examined with counselor and nurse. Chart reviewed. Case discussed with nursing staff who reports patient briefly had to be placed with a one-to-one yesterday evening because she was complaining of worsening voices. There is no self injury reported. On my examination today, the patient says that her mood is somewhat down. She denies any SI or HI. She denies any active urge to self injure. She says that the voices have quieted back down. She denies any stressor or trigger for them worsening yesterday. She denies any side effects from medications. We discussed medication adjustments, such as trying a different antidepressant, but the patient wishes to remain on her current regimen for now. Review of Systems Except as stated in HPI: all other systems reviewed are Neg Objective Alert: Yes [place]: Person, Place, Date, Situation Mood: Depressed (remains somewhat depressed) Affect: Blunted Memory Intact: Comment (intact on clinical exam) Hallucinations: Auditory (decreased) Delusions: No Delusion Type: Other (no delusions) Suicidal: Ideation (denies SI) Homicidal: Ideation (denies HI) Insight/Judgement Poor Remarks No motor abnormalities noted. Thought process linear. Labs Labs reviewed. ESR is pending. Vitals/IOs Vital Signs Date Time Temp Pulse Resp B/P Pulse Ox O2 Delivery O2 Flow Rate FiO2 08/11/16 17:56 98.6 110 16 113/67 97 Assessment & Plan Problem List: (1) Paranoid type schizophrenia, chronic state with acute exacerbation ICD Code: F20.0 (2) Depressive disorder ICD Code: F32.9 Assessment & Plan Continue Depakote as ordered. Plan to check a Depakote level tomorrow morning. Could consider further adjustments to this medication based on the level. Continue clozapine augmented with Zyprexa. Continue Cogentin for side effect management. Continue Paxil/Remeron for mood. To consider an alternative antidepressant combination. Continue to monitor on the high acuity unit. Low threshold to place back with one-to-one if needed. Continue other medications and care as ordered. Justification for Cont. Inpt. Impairment safety. High risk for decompensation in a less restrictive environment. Discharge Planning [facility] Request HC Surrog/Guard Advoc?: Yes Moshe Mcclendon MD Aug 12, 2016 10:04
--- NOTE | 2016-08-12 11:52 | HHI.PR ---
Subjective Remarks Follow-up on patient with schizophrenia and left knee pain/swelling. Patient seen and examined in her room today. Patient reports continued improvement in the left knee with less swelling and pain. She denies any other acute medical complaints at this time. No fever or chills. Objective Vitals Vital Signs Date Time Temp Pulse Resp B/P Pulse Ox O2 Delivery O2 Flow Rate FiO2 08/11/16 17:56 98.6 110 16 113/67 97 Result Diagram: 08/10/16 1026 08/10/16 1026 Objective Remarks GENERAL: This is a well-nourished, well-developed patient, in no apparent distress. Sleeping but easily arousable. SKIN: Warm and dry. HEENT: Normocephalic. EOMI. CARDIOVASCULAR: Regular rate and rhythm without murmurs, gallops, or rubs. RESPIRATORY: Clear to auscultation. Breath sounds equal bilaterally. No wheezes , rales, or rhonchi. GASTROINTESTINAL: Abdomen soft, non-tender, nondistended. Bowel Sounds normoactive x4. MUSCULOSKELETAL: Extremities without clubbing, cyanosis. Left knee slightly edematous but improved from yesterday's exam, no erythema or warmth. Nontender to palpation today. ROM normal. NEUROLOGICAL: Awake and alert. Flat affect. No focal neuro deficit. BALLESTEROS. Normal speech. Medications and IVs Current Medications Medications (Trade) Dose Ordered Sig/Jae Route Start Time Stop Time Status Last Admin (Ativan) 1 mg Q6H PRN PO 07/12/16 16:15 08/11/16 20:09 (Ativan Inj) 1 mg Q6H PRN IM 07/12/16 16:15 07/27/16 18:21 (Tylenol) 650 mg Q4H PRN PO 07/13/16 08:15 08/11/16 20:12 (Milk Of Magnesia Liq) 30 ml DAILY PRN PO 07/13/16 08:15 07/27/16 12:15 (Mag-Al Plus Susp Liq) 30 ml Q6H PRN PO 07/13/16 08:15 07/23/16 00:49 (Benadryl) 50 mg HS PO 07/13/16 21:00 08/11/16 20:10 (Remeron) 45 mg HS PO 07/13/16 21:00 08/11/16 20:10 (Miralax) 17 gm DAILY PO 07/13/16 09:00 08/11/16 09:25 (Colace) 200 mg BID PO 07/13/16 09:00 08/12/16 08:52 (Timi Rubalcava) 1,000 mg HS PO 07/13/16 21:00 08/11/16 20:09 (Bactroban 2% Oint) 1 applic Q8HR TOPICAL 07/15/16 22:00 08/11/16 14:30 (Pill Splitter) 1 ea UNSCH PRN OTHER 07/20/16 12:30 (Cogentin) 1.5 mg BID PO 07/26/16 21:00 08/12/16 08:50 (Dulcolax Ec) 10 mg DAILY PRN PO 07/27/16 12:45 08/06/16 08:46 (Paxil) 40 mg DAILY PO 07/30/16 09:00 08/12/16 08:50 (ZyPREXA) 10 mg HS PO 08/05/16 21:00 08/11/16 20:09 (Clozaril) 100 mg DAILY PO 08/10/16 09:00 08/12/16 08:49 (Clozaril) 450 mg HS PO 08/10/16 21:00 08/11/16 20:09 (Timi Rubalcava) 1,000 mg DAILY PO 08/11/16 09:00 08/12/16 08:51 A/P Problem List: (1) Depressive disorder ICD Code: F32.9 Status: Acute (2) Paranoid type schizophrenia, chronic state with acute exacerbation ICD Code: F20.0 Status: Acute (3) Schizophrenia ICD Code: F20.9 Status: Acute (4) Knee pain, acute ICD Code: M25.569 Status: Acute Assessment and Plan This is a 31-year-old female patient with past medical history of schizophrenia currently admitted inpatient psychiatric services. Consulted for assistance with self injury to face. Schizophrenia -Management per psychiatric services Left knee swelling and pain - Continues to improve with less swelling and pain. Patient witnessed ambulating without difficulty in the hallway. - Denies history of trauma - X-ray done showed joint effusion. No acute abnormality. - No appreciable erythema or warmth on exam - 08/10 WBC 7.5. CRP less than 0.29. ESR 2. - Will consider MRI study if patient's symptoms worsen or any indication of infectious process - Weightbearing as tolerated. Abrasion right side of face - self-inflicted - Healed Tachycardic, occasional - Chronic, stable - Encourage by mouth fluid intake - EKG 07/16/11 shows SR HR 88 - Echocardiogram reviewed - wall thickness at the upper limits of normal systolic function was normal EF ejection fraction 60-65% wall motion is normal there's no regional wall motion abnormalities. Tobacco abuse -Patient counseled on health risk of tobacco abuse encouraged to abstain DVT prophylaxis - patient is ambulatory Written by Regla Simms PA-C acting as scribe for Dr. Nichols on 08/12/16 at 11:52. All or portions of this note were transcribed by scribe Regla Simms PA-C . I, Dr. Kulwant Nichols personally performed the history, physical exam, and medical decision making; and confirmed the accuracy of the information in the transcribed note. Authenticated by Dr. Kulwant Nichols on 08/12/16 at 15:47. Problem Qualifiers (1) Schizophrenia: Qualified Code: F20.0 - Paranoid schizophrenia Regla Simms Aug 12, 2016 11:52 Kulwant Nichols MD Aug 12, 2016 15:47
[2016-08-12] MEDS: ACETAMINOPHEN 325 MG TAB PO PRN (16:51)
[2016-08-12 18:00] VITALS: BP 138/85; PULSE 123; RESP 18; TEMP 99; O2SAT 97
[2016-08-12] MEDS: diphenhydrAMINE HCL 50 MG CAP PO SCH (20:30)
[2016-08-12] MEDS: DIVALPROEX DR 500 MG TABEC PO SCH (20:31)
[2016-08-12] MEDS: OLANZapine 10 MG TAB PO SCH (20:32)
[2016-08-12] MEDS: MIRTAZAPINE 15 MG TAB PO SCH (20:32)
[2016-08-13] MEDS: ACETAMINOPHEN 325 MG TAB PO PRN ×2 (02:38→23:33)
[2016-08-13] MEDS: LORazepam 1 MG TAB PO PRN ×2 (02:41→08:45)
[2016-08-13] MEDS: MUPIROCIN 2% OINT 22 GM TUBE TOPICAL SCH ×3 (03:06→22:00)
[2016-08-13 05:50] VITALS: BP 122/79; PULSE 101; RESP 18; TEMP 98.5; O2SAT 96
[2016-08-13] MEDS: PARoxetine HCL 20 MG TAB PO SCH (08:45)
[2016-08-13] MEDS: BENZTROPINE MESYLATE 1 MG TAB PO SCH ×2 (08:45→20:25)
[2016-08-13] MEDS: DOCUSATE SODIUM 100 MG CAP PO SCH ×2 (08:45→20:27)
[2016-08-13] MEDS: POLYETHYLENE GLYCOL 17 GM PKG PO SCH (08:46)
[2016-08-13] MEDS: DIVALPROEX SODIUM DELAYED RELEASE 250 MG TAB PO SCH (08:46)
[2016-08-13] MEDS: cloZAPine 100 MG TAB PO SCH ×2 (08:46→20:25)
--- NOTE | 2016-08-13 11:38 | HHI.PYPN ---
Subjective Remarks Patient continues to be very disturbed and was scratching her face again last night. This physician was called and a one-to-one sitter was ordered. Medications continue to be of moderate help only. Review of Systems ROS Limitations: Clinical Condition Objective Alert: Yes [place]: Person, Place Mood: Depressed (remains somewhat depressed) Affect: Blunted Memory Intact: Comment (intact on clinical exam) Hallucinations: Auditory (decreased) Delusions: Yes Delusion Type: Paranoid, Other (no delusions) Suicidal: Ideation (denies SI) Homicidal: Ideation (denies HI) Insight/Judgment Markedly impaired. Labs Test 08/12/16 12:05 Erythrocyte Sedimentation Rate 2 mm/hr Vitals/IOs Vital Signs Date Time Temp Pulse Resp B/P Pulse Ox O2 Delivery O2 Flow Rate FiO2 08/13/16 05:50 98.5 101 18 122/79 96 Assessment & Plan Problem List: (1) Paranoid type schizophrenia, chronic state with acute exacerbation ICD Code: F20.0 (2) Depressive disorder ICD Code: F32.9 Assessment & Plan Estimated LOS: 7 days will review medications for changes possible to assist patient with stability. Justification for Cont. Inpt. Continues to harm herself repeatedly. Request HC Surrog/Guard Advoc?: Yes Leo William MD Aug 13, 2016 11:38
[2016-08-13 18:59] VITALS: BP 135/77; PULSE 112; RESP 18; TEMP 99.1; O2SAT 97
[2016-08-13] MEDS: LORazepam 2 MG/ML VIAL IM PRN (19:40)
[2016-08-13] MEDS: DIVALPROEX DR 500 MG TABEC PO SCH (20:27)
[2016-08-13] MEDS: MIRTAZAPINE 15 MG TAB PO SCH (20:28)
[2016-08-13] MEDS: OLANZapine 10 MG TAB PO SCH (20:29)
[2016-08-13] MEDS: diphenhydrAMINE HCL 50 MG CAP PO SCH (20:30)
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
[2016-08-14] MEDS: MUPIROCIN 2% OINT 22 GM TUBE TOPICAL SCH ×3 (05:12→22:00)
[2016-08-14 05:49] VITALS: BP 116/79; PULSE 100; RESP 17; TEMP 97.1; O2SAT 98
[2016-08-14] MEDS: POLYETHYLENE GLYCOL 17 GM PKG PO SCH (09:29)
[2016-08-14] MEDS: PARoxetine HCL 20 MG TAB PO SCH (09:30)
[2016-08-14] MEDS: BENZTROPINE MESYLATE 1 MG TAB PO SCH ×2 (09:30→22:14)
[2016-08-14] MEDS: DOCUSATE SODIUM 100 MG CAP PO SCH ×2 (09:30→22:14)
[2016-08-14] MEDS: cloZAPine 100 MG TAB PO SCH ×2 (09:30→22:13)
[2016-08-14] MEDS: DIVALPROEX SODIUM DELAYED RELEASE 250 MG TAB PO SCH (09:30)
[2016-08-14] MEDS: ACETAMINOPHEN 325 MG TAB PO PRN (11:51)
[2016-08-14 17:00] VITALS: BP 114/69; PULSE 123; RESP 17; TEMP 98.4; O2SAT 99
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
--- NOTE | 2016-08-14 20:49 | RADRPT ---
EXAM DATE/TIME: 08/14/2016 20:33 [facility] COMPARISON: No previous studies available for comparison. INDICATIONS : Left knee pain for the past six days. MEDICAL HISTORY : Seizures. Diabetes mellitus type 2. Schizophrenia and hallucinations. SURGICAL HISTORY : None. ENCOUNTER: Subsequent ACUITY: 4 - 6 days PAIN SCORE: 10/10 LOCATION: Left Knee. FINDINGS: Four view examination of the left knee demonstrates no evidence of fracture or dislocation. Bony min eralization is normal. The articular surfaces are intact. There appears to be a joint effusion on th e lateral view.. CONCLUSION: Joint effusion. No acute fracture or joint dislocation. Sky Hines MD on August 14, 2016 at 20:47 Board Certified Radiologist. This report was verified electronically.
[2016-08-14] MEDS: OLANZapine 10 MG TAB PO SCH (21:00)
[2016-08-14] MEDS: diphenhydrAMINE HCL 50 MG CAP PO SCH (22:11)
[2016-08-14] MEDS: DIVALPROEX DR 500 MG TABEC PO SCH (22:14)
[2016-08-14] MEDS: MIRTAZAPINE 15 MG TAB PO SCH (22:15)
[2016-08-14] MEDS: LORazepam 1 MG TAB PO PRN (23:18)
[2016-08-15 05:45] VITALS: BP 124/71; PULSE 106; RESP 17; TEMP 97.2; O2SAT 97
[2016-08-15] MEDS: MUPIROCIN 2% OINT 22 GM TUBE TOPICAL SCH ×3 (06:00→22:00)
[2016-08-15] MEDS: POLYETHYLENE GLYCOL 17 GM PKG PO SCH (09:00)
[2016-08-15] MEDS: BENZTROPINE MESYLATE 1 MG TAB PO SCH ×2 (09:18→21:00)
[2016-08-15] MEDS: PARoxetine HCL 20 MG TAB PO SCH (09:18)
[2016-08-15] MEDS: cloZAPine 100 MG TAB PO SCH ×2 (09:18→21:06)
[2016-08-15] MEDS: DOCUSATE SODIUM 100 MG CAP PO SCH ×2 (09:18→21:10)
[2016-08-15] MEDS: DIVALPROEX SODIUM DELAYED RELEASE 250 MG TAB PO SCH (09:18)
[2016-08-15] MEDS: LORazepam 1 MG TAB PO PRN ×2 (12:18→21:10)
--- NOTE | 2016-08-15 12:25 | HHI.PR ---
Subjective Remarks Reconsulted for left knee swelling. Patient seen today. Reports left knee swelling and some pain. Unable to tell whether this left knee swelling is worsening compared to prior visit. Patient is able to ambulate. Denies any trauma. Does not recall twisting or bumping her knee. History of arthritis. Repeat x-ray of the knee was done and showed joint effusion. No acute fracture or joint dislocation. Denies fevers, chills, n/v/d. Objective Vitals Vital Signs Date Time Temp Pulse Resp B/P Pulse Ox O2 Delivery O2 Flow Rate FiO2 08/15/16 05:45 97.2 106 17 124/71 97 08/14/16 17:00 98.4 123 17 114/69 99 Imaging Last Impressions Knee X-Ray 08/14/16 0000 Signed Impressions: Service Date/Time: Sunday, August 14, 2016 20:33 - CONCLUSION: Joint effusion. No acute fracture or joint dislocation. Sky Hines MD Head CT 08/13/16 0000 Signed Impressions: Service Date/Time: Saturday, August 13, 2016 21:59 - CONCLUSION: No intracranial abnormalities seen. There is frontal scalp swelling. Russell Loya MD Objective Remarks GENERAL: This is a well-nourished, well-developed patient, in no apparent distress. SKIN: Warm and dry. HEENT: Normocephalic. Pupils equal round and reactive. Nose without bleeding. Airway patent. NECK: Trachea midline. No JVD. Supple. CARDIOVASCULAR: Regular rate and rhythm without murmurs, gallops, or rubs. RESPIRATORY: Clear to auscultation. Breath sounds equal bilaterally. No wheezes , rales, or rhonchi. GASTROINTESTINAL: Abdomen soft, non-tender, nondistended. Bowel Sounds normoactive x4. MUSCULOSKELETAL: Extremities without clubbing, cyanosis. Left knee +1 edema, no erythema, mild tenderness to palpation of the proximal and medial side, no clicks. Negative drawer tests. Negative Martinez cyst. NEUROLOGICAL: Awake and alert. Flat affect. No focal neuro deficit. BALLESTEROS. Normal speech. A/P Problem List: (1) Depressive disorder ICD Code: F32.9 Status: Acute (2) Paranoid type schizophrenia, chronic state with acute exacerbation ICD Code: F20.0 Status: Acute (3) Schizophrenia ICD Code: F20.9 Status: Acute (4) Knee pain, acute ICD Code: M25.569 Status: Acute Assessment and Plan This is a 31-year-old female patient with past medical history of schizophrenia currently admitted inpatient psychiatric services. Been consulted for assistance with self injury to face Schizophrenia -Management per psychiatric services Left knee swelling and pain - X-ray done showed joint effusion. No acute abnormality - Repeat x-ray 08/14/16 showed joint effusion. No acute fracture or joint dislocation - Negative Martinez cyst, negative drawer test - negative ESR, INGE, CMP - Orthopedic consulted appreciate input. Abrasion right side of face- self-inflicted - healed -New abrasion to the right forearm - bacitracin twice a day Tachycardic- long standing, occasional - improved. - Encourage by mouth fluid intake - EKG 07/16/11 shows SR HR 88 - Echocardiogram gram reviewed summary wall thickness at the upper limits of normal systolic function was normal EF ejection fraction 60-65% wall motion is normal there's no regional wall motion abnormalities. Tobacco abuse -Patient counseled on health risk of tobacco abuse encouraged to abstain DVT prophylaxis patient is ambulatory Written by Janeth Lima, acting as scribe for Dr. Zimmerman on 08/15/16 at 12:24. All or portions of this note were transcribed by luci ACUÑA. I, Dr. Linda Zimmerman personally performed the history, physical exam, and medical decision making; and confirmed the accuracy of the information in the transcribed note. Authenticated by Dr. Linda Zimmerman on 08/15/16 at 12:24. Problem Qualifiers (1) Schizophrenia: Qualified Code: F20.0 - Paranoid schizophrenia Janeth Malik Aug 15, 2016 12:25 Linda Zimmerman MD Aug 15, 2016 19:12
[2016-08-15] MEDS: ACETAMINOPHEN 325 MG TAB PO PRN (12:26)
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
[2016-08-15] MEDS: BACITRACIN TOP OINT 15 GM TUBE TOPICAL SCH (21:00)
[2016-08-15] MEDS: MIRTAZAPINE 15 MG TAB PO SCH (21:05)
[2016-08-15] MEDS: diphenhydrAMINE HCL 50 MG CAP PO SCH (21:05)
[2016-08-15] MEDS: DIVALPROEX DR 500 MG TABEC PO SCH (21:08)
[2016-08-15] MEDS: OLANZapine 10 MG TAB PO SCH (21:09)
[2016-08-16] MEDS: MUPIROCIN 2% OINT 22 GM TUBE TOPICAL SCH ×3 (06:00→22:00)
[2016-08-16 06:14] VITALS: BP 108/66; PULSE 98; RESP 16; TEMP 97.6; O2SAT 98
[2016-08-16] MEDS: POLYETHYLENE GLYCOL 17 GM PKG PO SCH (08:30)
[2016-08-16] MEDS: DOCUSATE SODIUM 100 MG CAP PO SCH ×2 (08:31→20:41)
[2016-08-16] MEDS: PARoxetine HCL 20 MG TAB PO SCH (08:31)
[2016-08-16] MEDS: cloZAPine 100 MG TAB PO SCH ×2 (08:31→20:41)
[2016-08-16] MEDS: BENZTROPINE MESYLATE 1 MG TAB PO SCH ×2 (08:31→20:41)
[2016-08-16] MEDS: DIVALPROEX SODIUM DELAYED RELEASE 250 MG TAB PO SCH (08:31)
[2016-08-16] MEDS: BACITRACIN TOP OINT 15 GM TUBE TOPICAL SCH ×2 (08:32→20:45)
--- NOTE | 2016-08-16 10:43 | HHI.PYPN ---
Subjective Remarks Patient seen and examined. Chart reviewed. Case discussed with nursing staff reports that the patient scratched herself on Tuesday and was placed back on a one-to-one. She also complained of worsening left knee pain; hospitalist has been following along and an orthopedic consultation has been placed. On my examination today, patient remains with one-to-one. She is somewhat unengaged in interview this morning. No sedation noted, and the patient awakens readily. Complaints of ongoing auditory hallucinations. No active SI or HI voiced. No side effects from medications. Review of Systems Except as stated in HPI: all other systems reviewed are Neg Objective Alert: Yes [place]: Person, Place, Situation Mood: Depressed (remains depressed) Affect: Blunted Memory Intact: Comment (intact on clinical exam) Hallucinations: Auditory (ongoing CAH to hurt self) Delusions: No Delusion Type: Other (no delusions elicited) Suicidal: Ideation (no active SI at this time) Homicidal: Ideation (no active HI at this time) Insight/Judgment Poor Remarks No motor abnormalities noted. Thought process linear. Left knee remain swollen but not erythematous. Labs Labs reviewed. Last Impressions Knee X-Ray 08/14/16 0000 Signed Impressions: Service Date/Time: Sunday, August 14, 2016 20:33 - CONCLUSION: Joint effusion. No acute fracture or joint dislocation. Sky Hines MD Head CT 08/13/16 0000 Signed Impressions: Service Date/Time: Saturday, August 13, 2016 21:59 - CONCLUSION: No intracranial abnormalities seen. There is frontal scalp swelling. Russell oLya MD Vitals/IOs Vital Signs Date Time Temp Pulse Resp B/P Pulse Ox O2 Delivery O2 Flow Rate FiO2 08/16/16 06:14 97.6 98 16 108/66 98 Assessment & Plan Problem List: (1) Paranoid type schizophrenia, chronic state with acute exacerbation ICD Code: F20.0 (2) Depressive disorder ICD Code: F32.9 Assessment & Plan Given that sedation seems to be improved, titrate Zyprexa to 15 mg at bedtime to try to manage auditory hallucinations. Continue other psychotropics as ordered. Continue to monitor on the inpatient unit. Appreciate hospitalist retail sales consultant input. Awaiting orthopedic input. Continue one-to-one for safety. Continue other medications and care as ordered. Justification for Cont. Inpt. Impairment in safety. Impairment in reality construction. Medication changes. High risk for decompensation in a less restrictive environment. Discharge Planning [facility] Request HC Surrog/Guard Advoc?: Yes Moshe Mcclendon MD Aug 16, 2016 10:43
[2016-08-16 17:36] VITALS: BP 132/62; PULSE 113; RESP 18; TEMP 98.9; O2SAT 97
--- NOTE | 2016-08-16 19:19 | MB ---
cc: KENNY ELIZABETH M.D. DATE OF CONSULTATION 08/16/2016 REASON FOR CONSULTATION Left knee pain and swelling. HISTORY OF THE PRESENT ILLNESS This is a 31-year-old female who has been Martinez acted to [facility] psychiatric boles. She has severe paranoid schizophrenia with auditory hallucinations and was attempting to hurt herself. She has complained of pain, swelling of her left knee. I evaluated the patient. She is somewhat uncooperative with examination. She will not provide any specific history in regards to what happened to her knee, when the symptoms started or any aggravating or relieving factors. PAST MEDICAL HISTORY Positive for paranoid schizophrenia. ALLERGIES She has no known drug allergies. MEDICATIONS Include: 1. Mirtazipine. 2. Propranolol. 3. Divalproex. 4. Benadryl. 5. Clozapine. FAMILY HISTORY Negative for mental illness. SOCIAL HISTORY She is single. No children. She has a long history of mental illness. PHYSICAL EXAMINATION VITAL SIGNS: Temperature 98, pulse is 100, respiratory rate 20, blood pressure 118/70. GENERAL: The patient's general appearance is disheveled. HEENT: Normocephalic, atraumatic. Pupils are round. Extraocular muscles intact. NECK: Supple. LUNGS: Clear. HEART: Regular rate and rhythm. ABDOMEN: Soft and nontender. EXTREMITIES: Left knee does show a small to moderate amount of swelling. Range of motion of the left knee 0 to approximately 120, right 0 to 140. No gross instability involving the varus, valgus, anterior or posterior stress applied. Sensation intact. Brisk capillary refill. Compartments are soft. IMAGING X-rays of the left knee reviewed showed mild degenerative changes, no fractures. IMPRESSION Left knee pain and swelling, unknown etiology, likely related to trauma or contusion. PLAN Attempted to discuss diagnosis with the patient. I recommend conservative treatment. Ice, anti-inflammatory, activity modification. When the patient's schizophrenia becomes improved, if symptoms persist we could consider MRI imaging. Reconsult if needed. MD KIERSTEN Ibanez/KK /5:24 PM /7:00 PM
[2016-08-16] MEDS: diphenhydrAMINE HCL 50 MG CAP PO SCH (20:40)
[2016-08-16] MEDS: DIVALPROEX DR 500 MG TABEC PO SCH (20:41)
[2016-08-16] MEDS: MIRTAZAPINE 15 MG TAB PO SCH (20:41)
[2016-08-16] MEDS: OLANZapine 10 MG TAB PO SCH (20:42)
[2016-08-17] MEDS: MUPIROCIN 2% OINT 22 GM TUBE TOPICAL SCH ×3 (05:57→21:09)
[2016-08-17 06:11] VITALS: BP 135/62; PULSE 101; RESP 18; TEMP 99; O2SAT 94
[2016-08-17] MEDS: cloZAPine 100 MG TAB PO SCH ×2 (08:51→21:05)
[2016-08-17] MEDS: DOCUSATE SODIUM 100 MG CAP PO SCH ×2 (08:51→21:04)
[2016-08-17] MEDS: DIVALPROEX SODIUM DELAYED RELEASE 250 MG TAB PO SCH (08:51)
[2016-08-17] MEDS: POLYETHYLENE GLYCOL 17 GM PKG PO SCH (08:52)
[2016-08-17] MEDS: BACITRACIN TOP OINT 15 GM TUBE TOPICAL SCH ×2 (08:52→21:00)
[2016-08-17] MEDS: PARoxetine HCL 20 MG TAB PO SCH (08:52)
[2016-08-17] MEDS: BENZTROPINE MESYLATE 1 MG TAB PO SCH ×2 (08:52→21:04)
--- NOTE | 2016-08-17 11:51 | HHI.PYPN ---
Subjective Remarks Patient seen and examined. Chart reviewed. Case discussed with nurse, counselor an occupational therapist in treatment team. Nurse reports that the patient refused her CBC this morning. She has been sleeping so far today. Counselor has emailed the [facility] to see where the patient is on the [facility] hospital list but the contact lens flashing puncher at [facility] is reportedly on vacation today and so we do not know where the patient sits on the [facility] hospital list. On my examination today, the patient remains on one-to -one. She is somewhat oppositional and declines to open her eyes for interview. She also has a somewhat irritable edge. She says that she doesn't feel like talking today. She does inquire about her position on the [facility] list but has very little else to say. No evident side effects from medications. Review of Systems ROS Limitations: Poor Historian Except as stated in HPI: all other systems reviewed are Neg Objective Alert: Yes [place]: Person, Place, Situation Mood: Oppositional, Other (dysphoric) Affect: Restricted Memory Intact: Comment (not formally assessed today) Hallucinations: Other (none reported) Delusions: No Delusion Type: Other (none elicited) Suicidal: Ideation (no SI voiced) Homicidal: Ideation (no HI voiced) Insight/Judgment Poor Remarks No motor abnormalities noted. Labs Labs reviewed. Patient refused CBC this morning. Vitals/IOs Vital Signs Date Time Temp Pulse Resp B/P Pulse Ox O2 Delivery O2 Flow Rate FiO2 08/17/16 06:11 99.0 101 18 135/62 94 Assessment & Plan Problem List: (1) Paranoid type schizophrenia, chronic state with acute exacerbation ICD Code: F20.0 (2) Depressive disorder ICD Code: F32.9 Assessment & Plan There does seem to be a component of personality disorder or dysfunction that is becoming more evident as patient's current episode becomes prolonged. It is not presently clear to me if this is a component of patient's baseline personality, exacerbated by her acute psychiatric illness or if it is wholly a manifestation of patient's [place] conditions. Continue current psychotropics as ordered. To consider further titration of patient's Zyprexa. Continue one to one for safety. I have reordered patient CBC. Orthopedic protection consultant employed noted and appreciated. Continue to monitor on the inpatient psychiatric unit. Justification for Cont. Inpt. Impairment in safety. Impairment in social function. High risk for decompensation in a less restrictive environment. Discharge Planning [facility] psychiatric hospital referral. Request HC Surrog/Guard Advoc?: Yes Moshe Mcclendon MD Aug 17, 2016 11:51
[2016-08-17 14:48] LABS: AUTOMATED NEUTROPHIL # 3.7 TH/MM3 (1.8-7.7); BASOPHIL # 0.1 TH/MM3 (0-0.2); BASOPHIL % 0.7 % (0.0-2.0); EOSINOPHIL % 0.1 % (0.0-4.0); HEMATOCRIT 33.3 % (35.0-46.0); HEMO FLAGS DIFF FINAL; LYMPH % 32.9 % (9.0-44.0); LYMPHOCYTE # 2.4 TH/MM3 (1.0-4.8); MEAN CORPUSCULAR HEMOGLOBIN 27.3 PG (27.0-34.0); MEAN CORPUSCULAR HGB CONC 32.9 % (32.0-36.0); MONO % 15.7 % (0.0-8.0); NEUT % 50.6 % (16.0-70.0); PLATELET COUNT 234 TH/MM3 (150-450); RED BLOOD COUNT 4.02 MIL/MM3 (4.00-5.30); RED CELL DISTRIBUTION WIDTH 14.9 % (11.6-17.2); WHITE BLOOD COUNT 7.3 TH/MM3 (4.0-11.0)
[2016-08-17] MEDS: ACETAMINOPHEN 325 MG TAB PO PRN ×2 (18:21→23:01)
[2016-08-17] MEDS: OLANZapine 10 MG TAB PO SCH (21:03)
[2016-08-17] MEDS: DIVALPROEX DR 500 MG TABEC PO SCH (21:04)
[2016-08-17] MEDS: diphenhydrAMINE HCL 50 MG CAP PO SCH (21:04)
[2016-08-17] MEDS: MIRTAZAPINE 15 MG TAB PO SCH (21:04)
[2016-08-17] MEDS: LORazepam 1 MG TAB PO PRN (23:01)
[2016-08-18] MEDS: MUPIROCIN 2% OINT 22 GM TUBE TOPICAL SCH ×3 (06:00→20:00)
[2016-08-18 06:05] VITALS: BP 98/66; PULSE 96; RESP 18; TEMP 98.1; O2SAT 97
[2016-08-18] MEDS: BACITRACIN TOP OINT 15 GM TUBE TOPICAL SCH ×2 (09:00→20:00)
[2016-08-18] MEDS: POLYETHYLENE GLYCOL 17 GM PKG PO SCH (11:00)
[2016-08-18] MEDS: cloZAPine 100 MG TAB PO SCH ×2 (11:00→19:55)
[2016-08-18] MEDS: DOCUSATE SODIUM 100 MG CAP PO SCH ×2 (11:00→19:53)
[2016-08-18] MEDS: PARoxetine HCL 20 MG TAB PO SCH (11:02)
[2016-08-18] MEDS: DIVALPROEX SODIUM DELAYED RELEASE 250 MG TAB PO SCH (11:02)
[2016-08-18] MEDS: BENZTROPINE MESYLATE 1 MG TAB PO SCH ×2 (11:02→19:57)
[2016-08-18] MEDS: LORazepam 1 MG TAB PO PRN (11:35)
--- NOTE | 2016-08-18 11:48 | HHI.PYPN ---
Subjective Remarks Patient seen and examined with nurse. Chart reviewed. Case discussed with nursing staff who reports that the patient is exhibiting some new behaviors, such as trying to reach into RNs pockets. She is easily redirected. On my examination today, patient is with 1:1. She is sleeping but easily awakened. She does not wish to participate in interview today. No evident side effects from medications. Review of Systems ROS Limitations: Uncooperative, Poor Historian Except as stated in HPI: all other systems reviewed are Neg Objective Alert: Yes [place]: Person (at least) Mood: Other (Unable to assess) Affect: Restricted Memory Intact: Comment (Unable to assess) Hallucinations: Other (Unable to assess) Delusions: No Delusion Type: Other (Unable to assess) Suicidal: Ideation (Unable to assess) Homicidal: Ideation (Unable to assess) Insight/Judgment Poor Remarks No motor abnormalities noted. No signs of new self injury but examination is limited. Labs Test 08/17/16 14:28 White Blood Count 7.3 TH/MM3 Red Blood Count 4.02 MIL/MM3 Hemoglobin 11.0 GM/DL Hematocrit 33.3 % Mean Corpuscular Volume 83.0 FL Mean Corpuscular Hemoglobin 27.3 PG Mean Corpuscular Hemoglobin 32.9 % Concent Red Cell Distribution Width 14.9 % Platelet Count 234 TH/MM3 Mean Platelet Volume 8.3 FL Neutrophils (%) (Auto) 50.6 % Lymphocytes (%) (Auto) 32.9 % Monocytes (%) (Auto) 15.7 % Eosinophils (%) (Auto) 0.1 % Basophils (%) (Auto) 0.7 % Neutrophils # (Auto) 3.7 TH/MM3 Lymphocytes # (Auto) 2.4 TH/MM3 Monocytes # (Auto) 1.1 TH/MM3 Eosinophils # (Auto) 0.0 TH/MM3 Basophils # (Auto) 0.1 TH/MM3 CBC Comment DIFF FINAL Differential Comment Labs reviewed. Vitals/IOs Vital Signs Date Time Temp Pulse Resp B/P Pulse Ox O2 Delivery O2 Flow Rate FiO2 08/18/16 06:05 98.1 96 18 98/66 97 Intake and Output 08/17/16 08/17/16 08/18/16 08:00 16:00 00:00 Intake Total 120 ml Balance 120 ml Assessment & Plan Problem List: (1) Paranoid type schizophrenia, chronic state with acute exacerbation ICD Code: F20.0 (2) Depressive disorder ICD Code: F32.9 Assessment & Plan Continue current psychotropics as ordered. Continue one-to-one for safety. Continue other medications and care as ordered. Justification for Cont. Inpt. Impairment in safety. High risk for decompensation in a less restrictive environment. Discharge Planning State psychiatric hospital referral. Request HC Surrog/Guard Advoc?: Yes Moshe Mcclendon MD Aug 18, 2016 11:48
[2016-08-18] MEDS ORDERED: IBUPROFEN 600 MG TAB PO ONE (12:00)
--- NOTE | 2016-08-18 13:19 | HHI.PR ---
Subjective Remarks Follow-up on patient with left knee swelling. Patient complains of left knee swelling and pain. Some difficulty with ambulation secondary to pain. Patient evaluated by orthopedic service who recommended continued conservative management at this time. MRI if patient's symptoms persist or worsen. Patient has no other complaints at this time. She denies any chest pain shortness of breath or abdominal pain. Objective Vitals Vital Signs Date Time Temp Pulse Resp B/P Pulse Ox O2 Delivery O2 Flow Rate FiO2 08/18/16 06:05 98.1 96 18 98/66 97 I/O 08/17/16 08/17/16 08/17/16 08/18/16 08/18/16 08/18/16 07:00 15:00 23:00 07:00 15:00 23:00 Intake Total 120 ml Balance 120 ml Intake Oral 120 ml Result Diagram: 08/17/16 1428 Objective Remarks GENERAL: This is a well-nourished, well-developed patient, in no apparent distress. Sleeping but easily arousable. SKIN: Warm and dry. Multiple abrasions noted on the anterior right forearm, healing. No evidence of infection. HEENT: Normocephalic. EOMI. CARDIOVASCULAR: Regular rate and rhythm without murmurs, gallops, or rubs. RESPIRATORY: Clear to auscultation. Breath sounds equal bilaterally. No wheezes , rales, or rhonchi. GASTROINTESTINAL: Abdomen soft, non-tender, nondistended. Bowel Sounds normoactive x4. MUSCULOSKELETAL: Extremities without clubbing, cyanosis. Left knee slightly edematous. No erythema or warmth. Diffusely tender to palpation. ROM normal. Negative drawer tests. No Martinez cyst appreciated. NEUROLOGICAL: Awake and alert. Flat affect. No focal neuro deficit. BALLESTEROS. Normal speech. Medications and IVs Current Medications Medications (Trade) Dose Ordered Sig/Jae Route Start Time Stop Time Status Last Admin (Ativan) 1 mg Q6H PRN PO 07/12/16 16:15 08/18/16 11:35 (Ativan Inj) 1 mg Q6H PRN IM 07/12/16 16:15 08/13/16 19:40 (Tylenol) 650 mg Q4H PRN PO 07/13/16 08:15 08/17/16 23:01 (Milk Of Magnesia Liq) 30 ml DAILY PRN PO 07/13/16 08:15 07/27/16 12:15 (Mag-Al Plus Susp Liq) 30 ml Q6H PRN PO 07/13/16 08:15 07/23/16 00:49 (Benadryl) 50 mg HS PO 07/13/16 21:00 08/17/16 21:04 (Remeron) 45 mg HS PO 07/13/16 21:00 08/17/16 21:04 (Miralax) 17 gm DAILY PO 07/13/16 09:00 08/18/16 11:00 (Colace) 200 mg BID PO 07/13/16 09:00 08/18/16 11:00 (Timi Rubalcava) 1,000 mg HS PO 07/13/16 21:00 08/17/16 21:04 (Bactroban 2% Oint) 1 applic Q8HR TOPICAL 07/15/16 22:00 08/18/16 12:50 (Pill Splitter) 1 ea UNSCH PRN OTHER 07/20/16 12:30 (Cogentin) 1.5 mg BID PO 07/26/16 21:00 08/18/16 11:02 (Dulcolax Ec) 10 mg DAILY PRN PO 07/27/16 12:45 08/06/16 08:46 (Paxil) 40 mg DAILY PO 07/30/16 09:00 08/18/16 11:02 (Clozaril) 100 mg DAILY PO 08/10/16 09:00 08/18/16 11:00 (Clozaril) 450 mg HS PO 08/10/16 21:00 08/17/16 21:05 (Timi Rubalcava) 1,000 mg DAILY PO 08/11/16 09:00 08/18/16 11:02 (Baciguent Oint) 1 applic Q12HR TOPICAL 08/15/16 21:00 08/16/16 08:32 (ZyPREXA) 15 mg HS PO 08/16/16 21:00 08/17/16 21:03 A/P Problem List: (1) Depressive disorder ICD Code: F32.9 Status: Acute (2) Paranoid type schizophrenia, chronic state with acute exacerbation ICD Code: F20.0 Status: Acute (3) Schizophrenia ICD Code: F20.9 Status: Acute (4) Knee pain, acute ICD Code: M25.569 Status: Acute Assessment and Plan This is a 31-year-old female patient with past medical history of schizophrenia currently admitted inpatient psychiatric services. Consulted for assistance with self injury to face. Schizophrenia -Management per psychiatric services Left knee swelling and pain - Had improved and is now bothering the patient again - Denies history of trauma - Repeat X-ray done showed joint effusion. No acute abnormality. - No appreciable erythema or warmth on exam - WBC 7.3. CRP less than 0.29. ESR 2. - Evaluated by orthopedic service, appreciate their assistance. Continue conservative management. - Will consider MRI study if patient's symptoms worsen or any indication of infectious process - Weightbearing as tolerated. - Ibuprofen when necessary Abrasion right side of face, self infliced, healed - New abrasion to the right forearm - bacitracin twice a day Tachycardic, occasional - Chronic, stable - Encourage by mouth fluid intake - EKG 07/16/11 shows SR HR 88 - Echocardiogram reviewed - wall thickness at the upper limits of normal systolic function was normal EF ejection fraction 60-65% wall motion is normal there's no regional wall motion abnormalities. Tobacco abuse -Patient counseled on health risk of tobacco abuse encouraged to abstain DVT prophylaxis - patient is ambulatory Written by Regla Simms PA-C acting as scribe for Dr. Zimmerman on 08/18/16 at 11:20. All or portions of this note were transcribed by scribe Regla ACUÑA. I , Dr. Linda Zimmerman personally performed the history, physical exam, and medical decision making; and confirmed the accuracy of the information in the transcribed note. Authenticated by Dr. Linda Zimmerman on 08/18/16 at 11:20. Problem Qualifiers (1) Schizophrenia: Qualified Code: F20.0 - Paranoid schizophrenia Regla Simms Aug 18, 2016 13:19 Linda Zimmerman MD Aug 18, 2016 17:26
[2016-08-18] MEDS: diphenhydrAMINE HCL 50 MG CAP PO SCH (19:51)
[2016-08-18] MEDS: OLANZapine 10 MG TAB PO SCH (19:52)
[2016-08-18] MEDS: DIVALPROEX DR 500 MG TABEC PO SCH (19:58)
[2016-08-18] MEDS: MIRTAZAPINE 15 MG TAB PO SCH (19:59)
[2016-08-18 21:43] VITALS: BP 141/77; PULSE 117; RESP 18; TEMP 97.6; O2SAT 94
[2016-08-19 05:30] VITALS: BP 92/51; PULSE 101; RESP 18; TEMP 98.5; O2SAT 95
[2016-08-19] MEDS: MUPIROCIN 2% OINT 22 GM TUBE TOPICAL SCH ×3 (06:00→20:54)
[2016-08-19] MEDS: DIVALPROEX SODIUM DELAYED RELEASE 250 MG TAB PO SCH (08:34)
[2016-08-19] MEDS: DOCUSATE SODIUM 100 MG CAP PO SCH ×2 (08:34→20:52)
[2016-08-19] MEDS: PARoxetine HCL 20 MG TAB PO SCH (08:34)
[2016-08-19] MEDS: cloZAPine 100 MG TAB PO SCH ×2 (08:35→20:50)
[2016-08-19] MEDS: BENZTROPINE MESYLATE 1 MG TAB PO SCH ×2 (08:35→20:52)
[2016-08-19] MEDS: POLYETHYLENE GLYCOL 17 GM PKG PO SCH ×2 (08:35→09:00)
[2016-08-19] MEDS: BACITRACIN TOP OINT 15 GM TUBE TOPICAL SCH ×2 (09:00→20:54)
--- NOTE | 2016-08-19 10:32 | HHI.PYPN ---
Subjective Remarks Patient seen and examined with counselor and nurse. Chart reviewed. Case discussed with nursing staff who reports that the patient was up yesterday evening socializing on the unit playing cards. This morning, the patient is fairly sedated and cannot really participate in interview. When I return around noontime, patient is still in bed but able to engage in interview. She reports ongoing auditory hallucinations, although these are reportedly chiefly deprecatory now with only intermittent command hallucinations to self-injure. She denies any further self-injury. She asks about her position on the state wait list. Counselor tells me she is #12 currently. Besides the sedation, she denies side effects from meds. Review of Systems Except as stated in HPI: all other systems reviewed are Neg Objective Alert: Yes [place]: Person, Place Mood: Calm Affect: Restricted Memory Intact: Comment (intact) Hallucinations: Auditory (deprecatory with some CAH) Delusions: No Delusion Type: Other (No delusions) Suicidal: Ideation (No SI voiced) Homicidal: Ideation (No HI voiced) Insight/Judgment Poor Remarks No motor abnormalities noted. Thought process linear. Labs Labs reviewed. Vitals/IOs Vital Signs Date Time Temp Pulse Resp B/P Pulse Ox O2 Delivery O2 Flow Rate FiO2 08/19/16 05:30 98.5 101 18 92/51 95 Assessment & Plan Problem List: (1) Paranoid type schizophrenia, chronic state with acute exacerbation ICD Code: F20.0 (2) Depressive disorder ICD Code: F32.9 Assessment & Plan I have discussed the ongoing issues with sedation with the patient. She would like to try a different augmenting antipsychotic. We discuss the risks and benefits of Abilify. I will start the patient on 10 mg of Abilify this evening and discontinue her Zyprexa. Will watch for signs of toxicity on Abilify given coadministration with Paxil, a CYP2D6 inhibitor. Continue other psychotropics as ordered. Continue 1:1 for safety. Continue other medications and care as ordered. Justification for Cont. Inpt. Impairment in reality construction. Impairment in safety. Medication changes in process. High risk for decompensation in a less restrictive environment. Discharge Planning [facility] psychiatric hospital referral. Request HC Surrog/Guard Advoc?: Yes Moshe Mcclendon MD Aug 19, 2016 10:32
[2016-08-19] MEDS ORDERED: ZIPRASIDONE MESYLATE 20 MG VIAL IM STA (14:42)
[2016-08-19] MEDS ORDERED: diphenhydrAMINE HCL 50 MG/ML VIAL IM STA (14:42)
[2016-08-19] MEDS: ARIPiprazole 10 MG TAB PO SCH (20:50)
[2016-08-19] MEDS: diphenhydrAMINE HCL 50 MG CAP PO SCH (20:51)
[2016-08-19] MEDS: DIVALPROEX DR 500 MG TABEC PO SCH (20:51)
[2016-08-19] MEDS: MIRTAZAPINE 15 MG TAB PO SCH (20:54)
[2016-08-20] MEDS ORDERED: IBUPROFEN 600 MG TAB PO SCH (00:45)
[2016-08-20 06:00] VITALS: BP 138/77; PULSE 105; RESP 15; TEMP 98; O2SAT 93
[2016-08-20] MEDS: MUPIROCIN 2% OINT 22 GM TUBE TOPICAL SCH ×3 (06:00→21:24)
[2016-08-20] MEDS: cloZAPine 100 MG TAB PO SCH ×2 (09:00→21:20)
[2016-08-20] MEDS: PARoxetine HCL 20 MG TAB PO SCH (09:00)
[2016-08-20] MEDS: BENZTROPINE MESYLATE 1 MG TAB PO SCH ×2 (09:00→21:18)
[2016-08-20] MEDS: POLYETHYLENE GLYCOL 17 GM PKG PO SCH (09:00)
[2016-08-20] MEDS: BACITRACIN TOP OINT 15 GM TUBE TOPICAL SCH ×2 (09:00→21:00)
[2016-08-20] MEDS: DOCUSATE SODIUM 100 MG CAP PO SCH ×2 (09:00→21:19)
[2016-08-20] MEDS: DIVALPROEX SODIUM DELAYED RELEASE 250 MG TAB PO SCH (09:00)
[2016-08-20] MEDS: LORazepam 1 MG TAB PO PRN (09:11)
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
[2016-08-20] MEDS: IBUPROFEN 400 MG TAB PO SCH ×2 (14:00→21:19)
[2016-08-20 16:00] VITALS: BP 132/55; PULSE 115; RESP 16; TEMP 98.3; O2SAT 97
[2016-08-20] MEDS: ARIPiprazole 10 MG TAB PO SCH (21:18)
[2016-08-20] MEDS: MIRTAZAPINE 15 MG TAB PO SCH (21:18)
[2016-08-20] MEDS: diphenhydrAMINE HCL 50 MG CAP PO SCH (21:19)
[2016-08-20] MEDS: DIVALPROEX DR 500 MG TABEC PO SCH (21:19)
[2016-08-20 23:30] VITALS: BP 109/68; PULSE 103; RESP 20; TEMP 98.2; O2SAT 97
[2016-08-21] MEDS: IBUPROFEN 400 MG TAB PO SCH ×4 (06:00→21:35)
[2016-08-21] MEDS: MUPIROCIN 2% OINT 22 GM TUBE TOPICAL SCH ×3 (06:00→21:37)
[2016-08-21 06:08] VITALS: BP 121/76; PULSE 91; RESP 20; TEMP 98; O2SAT 99
[2016-08-21] MEDS: BACITRACIN TOP OINT 15 GM TUBE TOPICAL SCH ×2 (09:00→21:37)
[2016-08-21] MEDS: POLYETHYLENE GLYCOL 17 GM PKG PO SCH (10:30)
[2016-08-21] MEDS: BENZTROPINE MESYLATE 1 MG TAB PO SCH ×2 (10:30→21:35)
[2016-08-21] MEDS: PARoxetine HCL 20 MG TAB PO SCH (10:31)
[2016-08-21] MEDS: cloZAPine 100 MG TAB PO SCH ×2 (10:31→21:35)
[2016-08-21] MEDS: DOCUSATE SODIUM 100 MG CAP PO SCH ×2 (10:31→21:35)
[2016-08-21] MEDS: DIVALPROEX SODIUM DELAYED RELEASE 250 MG TAB PO SCH (10:31)
--- NOTE | 2016-08-21 11:49 | HHI.PYPN ---
Subjective Remarks Patient is seen today for follow-up in the unit, she is calm, cooperative and pleasant, she reports having a very good night last night, being a very good mood today, denies suicidal or homicidal ideation, denies visual and auditory hallucinations. She says that she has been writing in her diary and having a very nice conversation with sitter. Patient is oriented 3, compliant with medications. No episodes of aggressive behavior, hostility or agitation reported. Review of Systems Other No somatic complaints reported Objective Alert: Yes [place]: Person, Place, Date, Situation Mood: Calm Affect: Appropriate Memory Intact: Immediate, Recent, Remote Hallucinations: Auditory (derogatory comments, with commanding auditory hallucinations of voices telling her to hurt herself) Delusions: No Delusion Type: Other (No delusions) Suicidal: Ideation (No SI voiced) Homicidal: Ideation (No HI voiced) Insight/Judgment Appropriate Vitals/IOs Vital Signs Date Time Temp Pulse Resp B/P Pulse Ox O2 Delivery O2 Flow Rate FiO2 08/21/16 06:08 98.0 91 20 121/76 99 Intake and Output 08/20/16 08/20/16 08/21/16 08:00 16:00 00:00 Intake Total 480 ml 1080 ml Balance 480 ml 1080 ml Assessment & Plan Problem List: (1) Paranoid type schizophrenia, chronic state with acute exacerbation Assessment & Plan: No evidence of acute psychotic decompensation, will continue current psychiatric medications ICD Code: F20.0 (2) Depressive disorder ICD Code: F32.9 Assessment & Plan Estimated LOS: days Justification for Cont. Inpt. Patient poses a very high risk to decompensate out of an structure environment Request HC Surrog/Guard Advoc?: Yes Jhon Royal MD Aug 21, 2016 11:49
[2016-08-21 18:00] VITALS: BP 128/69; PULSE 96; RESP 20; TEMP 98.3; O2SAT 99
[2016-08-21] MEDS: diphenhydrAMINE HCL 50 MG CAP PO SCH (21:35)
[2016-08-21] MEDS: MIRTAZAPINE 15 MG TAB PO SCH (21:36)
[2016-08-21] MEDS: DIVALPROEX DR 500 MG TABEC PO SCH (21:36)
[2016-08-21] MEDS: ARIPiprazole 10 MG TAB PO SCH (21:36)
[2016-08-21] MEDS: LORazepam 1 MG TAB PO PRN (21:43)
[2016-08-22] MEDS: IBUPROFEN 400 MG TAB PO SCH ×3 (06:00→20:21)
[2016-08-22] MEDS: MUPIROCIN 2% OINT 22 GM TUBE TOPICAL SCH ×3 (06:00→20:21)
[2016-08-22] MEDS: cloZAPine 100 MG TAB PO SCH ×2 (11:19→20:21)
[2016-08-22] MEDS: DOCUSATE SODIUM 100 MG CAP PO SCH ×2 (11:19→20:21)
[2016-08-22] MEDS: PARoxetine HCL 20 MG TAB PO SCH (11:19)
[2016-08-22] MEDS: DIVALPROEX SODIUM DELAYED RELEASE 250 MG TAB PO SCH (11:19)
[2016-08-22] MEDS: BENZTROPINE MESYLATE 1 MG TAB PO SCH ×2 (11:20→20:21)
[2016-08-22] MEDS: POLYETHYLENE GLYCOL 17 GM PKG PO SCH (11:23)
[2016-08-22] MEDS: BACITRACIN TOP OINT 15 GM TUBE TOPICAL SCH ×2 (11:24→20:21)
[2016-08-22] MEDS: ACETAMINOPHEN 325 MG TAB PO PRN (11:28)
--- NOTE | 2016-08-22 14:16 | HHI.PYPN ---
Subjective Remarks Patient seen for psychiatric evaluation today, patient continues to show improvement in behavior and mood in the unit, she denies depressive symptoms, she says that she is being happy and she is motivated [facility] and continue with medical recommendations, she denies anxiety, she reports chronic auditory hallucinations of voices telling her to harm herself, but she clarifies that voices are low and decreased in intensity today. Review of Systems Other No somatic complaints Objective Alert: Yes [place]: Person, Place, Date, Situation Mood: Calm Affect: Appropriate Memory Intact: Immediate, Recent, Remote Hallucinations: Auditory (derogatory comments, with commanding auditory hallucinations of voices telling her to hurt herself) Delusions: No Delusion Type: Other (No delusions) Suicidal: Ideation (No SI voiced) Homicidal: Ideation (No HI voiced) Insight/Judgment Improved Vitals/IOs Vital Signs Date Time Temp Pulse Resp B/P Pulse Ox O2 Delivery O2 Flow Rate FiO2 08/21/16 22:35 18 08/21/16 18:00 98.3 96 128/69 99 Intake and Output 08/21/16 08/21/16 08/22/16 08:00 16:00 00:00 Intake Total 0 ml 240 ml 240 ml Balance 0 ml 240 ml 240 ml Assessment & Plan Problem List: (1) Paranoid type schizophrenia, chronic state with acute exacerbation ICD Code: F20.0 (2) Depressive disorder ICD Code: F32.9 Assessment & Plan Estimated LOS: days Justification for Cont. Inpt. Patient is to continue her psychiatric hospitalization for stabilization of mood and behavior, to continue monitoring medication response and side effects, patient has a very high risk to harm herself out of an structured environment. Request HC Surrog/Guard Advoc?: Yes Jhon Royal MD Aug 22, 2016 14:16
[2016-08-22] MEDS: LORazepam 1 MG TAB PO PRN ×2 (15:56→21:17)
[2016-08-22 19:20] VITALS: BP 134/62; PULSE 110; RESP 16; TEMP 98; O2SAT 97
[2016-08-22] MEDS: MIRTAZAPINE 15 MG TAB PO SCH (20:21)
[2016-08-22] MEDS: DIVALPROEX DR 500 MG TABEC PO SCH (20:21)
[2016-08-22] MEDS: diphenhydrAMINE HCL 50 MG CAP PO SCH (20:21)
[2016-08-22] MEDS: ARIPiprazole 10 MG TAB PO SCH (20:21)
[2016-08-23] MEDS: IBUPROFEN 400 MG TAB PO SCH (05:08)
[2016-08-23] MEDS: MUPIROCIN 2% OINT 22 GM TUBE TOPICAL SCH ×3 (05:08→20:54)
[2016-08-23 05:30] VITALS: BP 103/55; PULSE 93; RESP 16; O2SAT 95
[2016-08-23] MEDS: POLYETHYLENE GLYCOL 17 GM PKG PO SCH (09:00)
[2016-08-23] MEDS: BACITRACIN TOP OINT 15 GM TUBE TOPICAL SCH ×2 (09:00→20:10)
[2016-08-23] MEDS: PARoxetine HCL 20 MG TAB PO SCH (09:36)
[2016-08-23] MEDS: BENZTROPINE MESYLATE 1 MG TAB PO SCH ×2 (09:37→20:03)
[2016-08-23] MEDS: cloZAPine 100 MG TAB PO SCH ×2 (09:37→20:04)
[2016-08-23] MEDS: DIVALPROEX SODIUM DELAYED RELEASE 250 MG TAB PO SCH (09:37)
[2016-08-23] MEDS: DOCUSATE SODIUM 100 MG CAP PO SCH ×2 (09:37→20:04)
--- NOTE | 2016-08-23 12:37 | HHI.PYPN ---
Subjective Remarks Patient was seen today for psychiatric evaluation, patient was found in her bed , calm, cooperative and pleasant. Patient reports good mood, she says that she has been doing really good in the last days, feeling much better in general, however commanding-type auditory hallucinations of voices telling her to harm himself persist "but with decreased intensity and frequency". Patient was explained that she will be going back to [facility] units and to the care of Dr. Mcclendon, she expressed agreement and understanding stating that she will be fine "as long as he is not there". At this moment the patient denies suicidal and homicidal ideation, she denies visual and auditory hallucinations. Patient is oriented 3, no attention deficit, confusion, no gross cognitive impairment is observed. Patient has been fully compliant with medications, without any significant side effects, no agitation, no aggressive behavior have been reported. Review of Systems Other No somatic complaints Objective Alert: Yes [place]: Person, Place, Date, Situation Mood: Calm Affect: Appropriate Memory Intact: Immediate, Recent, Remote Hallucinations: Auditory (derogatory comments, with commanding auditory hallucinations of voices telling her to hurt herself) Delusions: No Delusion Type: Other (No delusions) Suicidal: Ideation (No SI voiced) Homicidal: Ideation (No HI voiced) Insight/Judgment Fair Vitals/IOs Vital Signs Date Time Temp Pulse Resp B/P Pulse Ox O2 Delivery O2 Flow Rate FiO2 08/23/16 05:30 93 16 103/55 95 08/22/16 19:20 98.0 Intake and Output 08/22/16 08/22/16 08/23/16 08:00 16:00 00:00 Intake Total 0 ml 1040 ml Balance 0 ml 1040 ml Assessment & Plan Problem List: (1) Paranoid type schizophrenia, chronic state with acute exacerbation Assessment & Plan: Will continue current psychotropic regimen. Brief supportive psychotherapy provided. Patient will go back to 2700 unit was poorly this afternoon. ICD Code: F20.0 (2) Depressive disorder ICD Code: F32.9 Assessment & Plan Estimated LOS: days Justification for Cont. Inpt. Patient is to continue psychiatric hospitalization for stabilization and close monitoring of psychotic behavior and thought and mood. Patient has a very high risk to decompensate out of a structure environment Request HC Surrog/Guard Advoc?: Yes Jhon Royal MD Aug 23, 2016 12:37
[2016-08-23] MEDS: MIRTAZAPINE 15 MG TAB PO SCH (20:02)
[2016-08-23] MEDS: diphenhydrAMINE HCL 50 MG CAP PO SCH (20:03)
[2016-08-23] MEDS: ARIPiprazole 10 MG TAB PO SCH (20:04)
[2016-08-23] MEDS: DIVALPROEX DR 500 MG TABEC PO SCH (20:05)
[2016-08-23] MEDS: LORazepam 1 MG TAB PO PRN (20:09)
[2016-08-24] MEDS: MUPIROCIN 2% OINT 22 GM TUBE TOPICAL SCH ×3 (05:45→21:41)
[2016-08-24] MEDS: LORazepam 1 MG TAB PO PRN ×2 (07:20→20:19)
[2016-08-24] MEDS: POLYETHYLENE GLYCOL 17 GM PKG PO SCH (08:23)
[2016-08-24] MEDS: DIVALPROEX SODIUM DELAYED RELEASE 250 MG TAB PO SCH (08:23)
[2016-08-24] MEDS: BENZTROPINE MESYLATE 1 MG TAB PO SCH ×2 (08:23→20:19)
[2016-08-24] MEDS: DOCUSATE SODIUM 100 MG CAP PO SCH ×2 (08:23→20:19)
[2016-08-24] MEDS: cloZAPine 100 MG TAB PO SCH ×2 (08:23→20:20)
[2016-08-24] MEDS: PARoxetine HCL 20 MG TAB PO SCH (08:23)
[2016-08-24] MEDS: BACITRACIN TOP OINT 15 GM TUBE TOPICAL SCH ×2 (08:23→20:21)
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
[2016-08-24 18:04] VITALS: BP 123/68; PULSE 122; RESP 17; TEMP 97.9; O2SAT 97
[2016-08-24] MEDS: ACETAMINOPHEN 325 MG TAB PO PRN (18:41)
[2016-08-24] MEDS: MIRTAZAPINE 15 MG TAB PO SCH (20:19)
[2016-08-24] MEDS: diphenhydrAMINE HCL 50 MG CAP PO SCH (20:19)
[2016-08-24] MEDS: ARIPiprazole 10 MG TAB PO SCH (20:19)
[2016-08-24] MEDS: DIVALPROEX DR 500 MG TABEC PO SCH (20:20)
[2016-08-25] MEDS: MUPIROCIN 2% OINT 22 GM TUBE TOPICAL SCH ×3 (05:24→20:42)
[2016-08-25 06:04] VITALS: BP 118/67; PULSE 93; RESP 18; TEMP 97.5; O2SAT 98
[2016-08-25] MEDS: DOCUSATE SODIUM 100 MG CAP PO SCH ×2 (08:49→20:19)
[2016-08-25] MEDS: PARoxetine HCL 20 MG TAB PO SCH (08:49)
[2016-08-25] MEDS: BENZTROPINE MESYLATE 1 MG TAB PO SCH ×2 (08:49→20:19)
[2016-08-25] MEDS: DIVALPROEX SODIUM DELAYED RELEASE 250 MG TAB PO SCH (08:49)
[2016-08-25] MEDS: POLYETHYLENE GLYCOL 17 GM PKG PO SCH (08:50)
[2016-08-25] MEDS: cloZAPine 100 MG TAB PO SCH ×2 (08:50→20:19)
[2016-08-25 08:59] LABS: AUTOMATED NEUTROPHIL # 3.1 TH/MM3 (1.8-7.7); BASOPHIL % 0.5 % (0.0-2.0); HEMATOCRIT 33.9 % (35.0-46.0); HEMO FLAGS DIFF FINAL; LYMPH % 42.6 % (9.0-44.0); LYMPHOCYTE # 2.9 TH/MM3 (1.0-4.8); MEAN CELL VOLUME 83.5 FL (80.0-100.0); MEAN CORPUSCULAR HEMOGLOBIN 27.5 PG (27.0-34.0); MEAN CORPUSCULAR HGB CONC 32.9 % (32.0-36.0); MONO % 11.7 % (0.0-8.0); NEUT % 45.2 % (16.0-70.0); PLATELET COUNT 240 TH/MM3 (150-450); RED BLOOD COUNT 4.06 MIL/MM3 (4.00-5.30); RED CELL DISTRIBUTION WIDTH 14.9 % (11.6-17.2); WHITE BLOOD COUNT 6.8 TH/MM3 (4.0-11.0)
[2016-08-25] MEDS: BACITRACIN TOP OINT 15 GM TUBE TOPICAL SCH ×2 (09:00→20:42)
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
[2016-08-25] MEDS: LORazepam 1 MG TAB PO PRN (11:49)
[2016-08-25] MEDS ORDERED: ZIPRASIDONE MESYLATE 20 MG VIAL IM STA (11:55)
[2016-08-25] MEDS ORDERED: diphenhydrAMINE HCL 50 MG/ML VIAL IM ONE (12:15)
[2016-08-25 16:57] VITALS: BP 133/88; PULSE 121; RESP 18; TEMP 98.4; O2SAT 97
[2016-08-25] MEDS: DIVALPROEX DR 500 MG TABEC PO SCH (20:18)
[2016-08-25] MEDS: ARIPiprazole 10 MG TAB PO SCH (20:18)
[2016-08-25] MEDS: diphenhydrAMINE HCL 50 MG CAP PO SCH (20:19)
[2016-08-25] MEDS: MIRTAZAPINE 15 MG TAB PO SCH (20:23)
--- NOTE | 2016-08-25 23:02 | RADRPT ---
EXAM DATE/TIME: 08/25/2016 21:23 [place] COMPARISON: No previous studies available for comparison. INDICATIONS : Pain. MEDICAL HISTORY : None. SURGICAL HISTORY : None. ENCOUNTER: Initial ACUITY: > 1 year PAIN SCORE: 8/10 LOCATION: Bilateral entire anterior portion of knee. TECHNIQUE: Multiplanar, multisequence MRI examination was performed without contrast. FINDINGS: CRUCIATE LIGAMENTS: ACL and PCL are intact. MENISCI: Medial and lateral menisci are intact. COLLATERAL LIGAMENTS: MCL and LCL complexes are intact. BONE/CARTILAGE: Minimal bony edema in the medial femoral condyle with some overlying chondromalacia. Cartilaginous th inning involving the lateral compartment with possible cartilaginous flap. MISCELLANEOUS: Large joint effusion with extensive suprapatellar synovitis. Extensor mechanism is intact. CONCLUSION: Large joint effusion with some suprapatellar synovitis. The chondromalacia involving both femoral con dyles with some bony edema medially Roshan El MD on August 25, 2016 at 22:59 Board Certified Radiologist. This report was verified electronically.
[2016-08-25] MEDS: ACETAMINOPHEN 325 MG TAB PO PRN (23:09)
[2016-08-26] MEDS: MUPIROCIN 2% OINT 22 GM TUBE TOPICAL SCH ×3 (05:52→22:00)
[2016-08-26 06:03] VITALS: BP 129/61; PULSE 107; RESP 20; TEMP 97.8; O2SAT 98
[2016-08-26] MEDS: DIVALPROEX SODIUM DELAYED RELEASE 250 MG TAB PO SCH (08:41)
[2016-08-26] MEDS: BENZTROPINE MESYLATE 1 MG TAB PO SCH ×2 (08:41→21:12)
[2016-08-26] MEDS: POLYETHYLENE GLYCOL 17 GM PKG PO SCH ×2 (08:41→08:48)
[2016-08-26] MEDS: cloZAPine 100 MG TAB PO SCH (08:45)
[2016-08-26] MEDS: DOCUSATE SODIUM 100 MG CAP PO SCH ×2 (08:45→21:12)
[2016-08-26] MEDS: PARoxetine HCL 20 MG TAB PO SCH (08:45)
[2016-08-26] MEDS: BACITRACIN TOP OINT 15 GM TUBE TOPICAL SCH ×2 (08:48→21:00)
--- NOTE | 2016-08-26 10:37 | HHI.PYPN ---
Subjective Remarks Patient seen and examined with counselor. Chart reviewed. Case discussed with nursing staff. Per nursing staff, the patient has been maintaining good behavioral control despite a fairly disruptive milieu. I find the patient outside for fresh air. She is in good spirits. She continues to report that her command auditory hallucinations and corresponding urge to self injure are both minimal. She does admit that she is struggling with the behavior of some of her female peers on the unit but is proud of her ability to remain in good behavioral control. She does complain of some poor sleep. Denies side effects from medications. Review of Systems Except as stated in HPI: all other systems reviewed are Neg Objective Alert: Yes [place]: Person, Place, Date, Situation Mood: Calm Affect: Appropriate Memory Intact: Comment (intact) Hallucinations: Auditory (remains minimal) Delusions: No Delusion Type: Other (none) Suicidal: Ideation (no SI) Homicidal: Ideation (no HI) Insight/Judgment Poor but perhaps improving Remarks No abnormal motor movements noted. Thought process linear. Speech within normal limits for rate, tone and volume. Grooming and hygiene fair. Labs Labs reviewed. Vitals/IOs Vital Signs Date Time Temp Pulse Resp B/P Pulse Ox O2 Delivery O2 Flow Rate FiO2 08/26/16 06:03 97.8 107 20 129/61 98 Assessment & Plan Problem List: (1) Paranoid type schizophrenia, chronic state with acute exacerbation ICD Code: F20.0 (2) Depressive disorder ICD Code: F32.9 Assessment & Plan Continue current psychotropics as ordered. I will adjust patient's clozapine dosing so that all of this is given at night to try to help with sleep rather than adding a new hypnotic. I'll schedule this to start tomorrow, Tuesday since the patient has already received her morning dose of clozapine. Continue to monitor on the high acuity unit. Continue other medications and care as ordered. Justification for Cont. Inpt. High risk for decompensation in a less restrictive environment. Discharge Planning [facility] Request HC Surrog/Guard Advoc?: Yes Moshe Mcclendon MD Aug 26, 2016 10:36
[2016-08-26] MEDS: IBUPROFEN 800 MG TAB PO PRN (17:17)
[2016-08-26 18:20] VITALS: BP 123/81; PULSE 104; RESP 18; TEMP 98.2
[2016-08-26] MEDS ORDERED: cloZAPine 100 MG TAB PO SCH (21:00)
[2016-08-26] MEDS: diphenhydrAMINE HCL 50 MG CAP PO SCH (21:09)
[2016-08-26] MEDS: DIVALPROEX DR 500 MG TABEC PO SCH (21:13)
[2016-08-26] MEDS: MIRTAZAPINE 15 MG TAB PO SCH (21:13)
[2016-08-26] MEDS: ARIPiprazole 10 MG TAB PO SCH (21:14)
[2016-08-26] MEDS: ACETAMINOPHEN 325 MG TAB PO PRN (22:30)
[2016-08-27] MEDS: MUPIROCIN 2% OINT 22 GM TUBE TOPICAL SCH ×3 (05:27→22:00)
[2016-08-27] MEDS: DOCUSATE SODIUM 100 MG CAP PO SCH ×2 (08:48→21:09)
[2016-08-27] MEDS: PARoxetine HCL 20 MG TAB PO SCH (08:48)
[2016-08-27] MEDS: DIVALPROEX SODIUM DELAYED RELEASE 250 MG TAB PO SCH (08:48)
[2016-08-27] MEDS: BENZTROPINE MESYLATE 1 MG TAB PO SCH ×2 (08:49→21:10)
[2016-08-27] MEDS: BACITRACIN TOP OINT 15 GM TUBE TOPICAL SCH ×2 (09:00→21:00)
[2016-08-27] MEDS: POLYETHYLENE GLYCOL 17 GM PKG PO SCH (09:00)
[2016-08-27 17:41] VITALS: BP 127/62; PULSE 96; RESP 19; TEMP 99.1; O2SAT 98
[2016-08-27] MEDS: ARIPiprazole 10 MG TAB PO SCH (21:00)
[2016-08-27] MEDS: DIVALPROEX DR 500 MG TABEC PO SCH (21:10)
[2016-08-27] MEDS: cloZAPine 100 MG TAB PO SCH (21:11)
[2016-08-27] MEDS: diphenhydrAMINE HCL 50 MG CAP PO SCH (21:13)
[2016-08-27] MEDS: MIRTAZAPINE 15 MG TAB PO SCH (21:16)
[2016-08-27 21:30] VITALS: BP 127/62; PULSE 96; RESP 19; TEMP 99.1; O2SAT 98
[2016-08-28 05:37] VITALS: BP 110/68; PULSE 80; RESP 18; TEMP 97.6; O2SAT 98
[2016-08-28] MEDS: MUPIROCIN 2% OINT 22 GM TUBE TOPICAL SCH ×3 (05:54→21:47)
[2016-08-28] MEDS: BENZTROPINE MESYLATE 1 MG TAB PO SCH ×2 (08:29→21:42)
[2016-08-28] MEDS: POLYETHYLENE GLYCOL 17 GM PKG PO SCH (08:30)
[2016-08-28] MEDS: BACITRACIN TOP OINT 15 GM TUBE TOPICAL SCH ×2 (08:30→21:00)
[2016-08-28] MEDS: DOCUSATE SODIUM 100 MG CAP PO SCH ×2 (08:30→21:43)
[2016-08-28] MEDS: PARoxetine HCL 20 MG TAB PO SCH (08:30)
[2016-08-28] MEDS: DIVALPROEX SODIUM DELAYED RELEASE 250 MG TAB PO SCH (08:30)
[2016-08-28] MEDS: IBUPROFEN 800 MG TAB PO PRN ×2 (09:23→21:46)
--- NOTE | 2016-08-28 15:26 | HHI.PYPN ---
Subjective Remarks Patient was seen and case discussed with nursing. Patient is markedly improved compared to our visit 2 weeks ago. She is less blunted and more engaging. Auditory hallucinations are still there but are less frequent and less command in nature. She has not scratched for 2 weeks. Compliant with her medications and tolerating them well. Objective Alert: Yes [place]: Person, Place, Date, Situation Mood: Calm Affect: Restricted Memory Intact: Comment (intact) Hallucinations: Auditory (remains minimal) Delusions: No Delusion Type: Other (none) Suicidal: Ideation (no SI) Homicidal: Ideation (no HI) Insight/Judgment Fair Vitals/IOs Vital Signs Date Time Temp Pulse Resp B/P Pulse Ox O2 Delivery O2 Flow Rate FiO2 08/28/16 05:37 97.6 80 18 110/68 98 Assessment & Plan Problem List: (1) Paranoid type schizophrenia, chronic state with acute exacerbation ICD Code: F20.0 (2) Depressive disorder ICD Code: F32.9 Assessment & Plan Continue current treatment plan Justification for Cont. Inpt. Patient will decompensate in a less restrictive setting Request HC Surrog/Guard Advoc?: Yes Cecilio Villafuerte DO Aug 28, 2016 15:26
[2016-08-28 18:08] VITALS: BP 116/71; PULSE 114; RESP 18; TEMP 98.6; O2SAT 99
[2016-08-28] MEDS: ARIPiprazole 10 MG TAB PO SCH (21:38)
[2016-08-28] MEDS: DIVALPROEX DR 500 MG TABEC PO SCH (21:39)
[2016-08-28] MEDS: MIRTAZAPINE 15 MG TAB PO SCH (21:40)
[2016-08-28] MEDS: cloZAPine 100 MG TAB PO SCH (21:42)
[2016-08-28] MEDS: diphenhydrAMINE HCL 50 MG CAP PO SCH (21:47)
[2016-08-29] MEDS: MUPIROCIN 2% OINT 22 GM TUBE TOPICAL SCH ×3 (05:43→22:00)
[2016-08-29] MEDS: POLYETHYLENE GLYCOL 17 GM PKG PO SCH (09:00)
[2016-08-29] MEDS: PARoxetine HCL 20 MG TAB PO SCH (09:10)
[2016-08-29] MEDS: BENZTROPINE MESYLATE 1 MG TAB PO SCH ×2 (09:10→20:21)
[2016-08-29] MEDS: DIVALPROEX SODIUM DELAYED RELEASE 250 MG TAB PO SCH (09:11)
[2016-08-29] MEDS: DOCUSATE SODIUM 100 MG CAP PO SCH ×2 (09:12→20:22)
[2016-08-29] MEDS: BACITRACIN TOP OINT 15 GM TUBE TOPICAL SCH ×2 (09:14→20:26)
--- NOTE | 2016-08-29 14:56 | HHI.PYPN ---
Subjective Remarks Patient was seen and case discussed with nursing. Patient continues to improve. She is brighter and is easily engaged. Describes her voices as a 6 out of 10. Still giving her commands but she is able to ignore them. Anna Marie the interview by shaking my hand. Behaving well on the unit. Compliant with her medications Objective Alert: Yes [place]: Person, Place, Date, Situation Mood: Calm Affect: Restricted Memory Intact: Comment (intact) Hallucinations: Auditory (6 out of 10, command) Delusions: No Delusion Type: Other (none) Suicidal: Ideation (no SI) Homicidal: Ideation (no HI) Insight/Judgment Fair Vitals/IOs Vital Signs Date Time Temp Pulse Resp B/P Pulse Ox O2 Delivery O2 Flow Rate FiO2 08/28/16 18:08 98.6 114 18 116/71 99 Assessment & Plan Problem List: (1) Paranoid type schizophrenia, chronic state with acute exacerbation ICD Code: F20.0 (2) Depressive disorder ICD Code: F32.9 Assessment & Plan Continue current treatment plan Justification for Cont. Inpt. Patient will decompensate in a less restrictive setting Request HC Surrog/Guard Advoc?: Yes Cecilio Villafuerte DO Aug 29, 2016 14:56
[2016-08-29 15:20] VITALS: BP 131/63; PULSE 110; RESP 18; TEMP 98.8; O2SAT 99
[2016-08-29] MEDS: diphenhydrAMINE HCL 50 MG CAP PO SCH (20:21)
[2016-08-29] MEDS: IBUPROFEN 800 MG TAB PO PRN (20:21)
[2016-08-29] MEDS: LORazepam 1 MG TAB PO PRN (20:21)
[2016-08-29] MEDS: cloZAPine 100 MG TAB PO SCH (20:22)
[2016-08-29] MEDS: MIRTAZAPINE 15 MG TAB PO SCH (20:22)
[2016-08-29] MEDS: ARIPiprazole 10 MG TAB PO SCH (20:22)
[2016-08-29] MEDS: DIVALPROEX DR 500 MG TABEC PO SCH (20:22)
[2016-08-30] MEDS: MUPIROCIN 2% OINT 22 GM TUBE TOPICAL SCH ×3 (05:17→20:31)
[2016-08-30 06:10] VITALS: BP 116/65; PULSE 110; RESP 17; TEMP 98.5; O2SAT 100
[2016-08-30] MEDS: BENZTROPINE MESYLATE 1 MG TAB PO SCH ×2 (09:16→20:32)
[2016-08-30] MEDS: BACITRACIN TOP OINT 15 GM TUBE TOPICAL SCH ×2 (09:17→21:00)
[2016-08-30] MEDS: DOCUSATE SODIUM 100 MG CAP PO SCH ×2 (09:17→20:33)
[2016-08-30] MEDS: PARoxetine HCL 20 MG TAB PO SCH (09:17)
[2016-08-30] MEDS: DIVALPROEX SODIUM DELAYED RELEASE 250 MG TAB PO SCH (09:17)
[2016-08-30] MEDS: POLYETHYLENE GLYCOL 17 GM PKG PO SCH (09:17)
--- NOTE | 2016-08-30 11:29 | HHI.PYPN ---
Subjective Remarks Patient seen and examined with counselor and nurse. Patient also has a one-to- one for safety. Chart reviewed. Case discussed with nursing staff who reports patient is doing somewhat better on the unit. She did require Ativan and Benadryl last night for sleep. On my examination today, the patient does complain of poor sleep. She says this is because of noncommand, chiefly visual hallucinations at night of figures. She reports that her command auditory hallucinations are minimal presently. No reported urge to self injure. Mood is fairly good. We discussed titrating her Abilify for additional antipsychotic action, and she is agreeable to trying this tonight. Denies side effects from medications. Does continue to complain of some knee pain. Review of Systems Except as stated in HPI: all other systems reviewed are Neg Objective Alert: Yes [place]: Person, Place, Date, Situation Mood: Calm Affect: Euthymic (full and reactive) Memory Intact: Comment (intact on clinical exam) Hallucinations: Auditory (minimal command), Visual (figures at at bedtime as noted above) Delusions: No Delusion Type: Other (no delusions) Suicidal: Ideation (no suicidal ideation) Homicidal: Ideation (no homicidal ideation) Insight/Judgment Poor Remarks No motor abnormalities noted. Thought process linear. Speech within normal limits for rate, tone and volume. Labs Labs reviewed. MRI knee results reviewed. Vitals/IOs Vital Signs Date Time Temp Pulse Resp B/P Pulse Ox O2 Delivery O2 Flow Rate FiO2 08/30/16 06:10 98.5 110 17 116/65 100 Assessment & Plan Problem List: (1) Paranoid type schizophrenia, chronic state with acute exacerbation ICD Code: F20.0 (2) Depressive disorder Assessment & Plan: Improved ICD Code: F32.9 Assessment & Plan Titrate Abilify to 15 mg to target reported psychotic symptoms. Continue other psychotropics as ordered. Check a CBC for clozapine. I have left a message with Dr. Kwan's answering service to follow up on next steps regarding the MRI of the knee. I will replace patient's ibuprofen with Naprosyn for musculoskeletal pain. Continue one-to-one for safety, although we could consider decreasing level of observation as patient has gone several days without any evidence of self injury. Continue to monitor on the high acuity unit. Continue other medications and care as ordered. Justification for Cont. Inpt. Impairment in safety. Medication changes in process. High risk for decompensation in a less restrictive environment. Discharge Planning [facility] referral. Per counselor, patient is #5 on the [facility] wait list. Request HC Surrog/Guard Advoc?: Yes Moshe Mcclendon MD Aug 30, 2016 11:29
[2016-08-30 16:26] LABS: AUTOMATED NEUTROPHIL # 3.4 TH/MM3 (1.8-7.7); BASOPHIL # 0.1 TH/MM3 (0-0.2); BASOPHIL % 0.8 % (0.0-2.0); HEMATOCRIT 36.8 % (35.0-46.0); HEMO FLAGS DIFF FINAL; LYMPH % 43.4 % (9.0-44.0); LYMPHOCYTE # 3.2 TH/MM3 (1.0-4.8); MEAN CORPUSCULAR HEMOGLOBIN 26.8 PG (27.0-34.0); MEAN CORPUSCULAR HGB CONC 31.9 % (32.0-36.0); NEUT % 46.8 % (16.0-70.0); PLATELET COUNT 269 TH/MM3 (150-450); RED BLOOD COUNT 4.38 MIL/MM3 (4.00-5.30); RED CELL DISTRIBUTION WIDTH 14.7 % (11.6-17.2); WHITE BLOOD COUNT 7.3 TH/MM3 (4.0-11.0)
[2016-08-30 18:14] VITALS: BP 133/77; PULSE 122; RESP 18; TEMP 97.8; O2SAT 99
[2016-08-30] MEDS: ARIPiprazole 15 MG TAB PO SCH (20:31)
[2016-08-30] MEDS: cloZAPine 100 MG TAB PO SCH (20:32)
[2016-08-30] MEDS: MIRTAZAPINE 15 MG TAB PO SCH (20:32)
[2016-08-30] MEDS: DIVALPROEX DR 500 MG TABEC PO SCH (20:33)
[2016-08-30] MEDS: LORazepam 1 MG TAB PO PRN (20:33)
[2016-08-30] MEDS: NAPROXEN 500 MG TAB PO PRN (20:33)
[2016-08-30] MEDS: diphenhydrAMINE HCL 50 MG CAP PO SCH (20:33)
[2016-08-30 21:00] VITALS: BP 133/77; PULSE 102; RESP 18; TEMP 97.8; O2SAT 99
[2016-08-31 06:00] VITALS: BP 110/56; PULSE 87; RESP 18; TEMP 97.4; O2SAT 100
[2016-08-31] MEDS: MUPIROCIN 2% OINT 22 GM TUBE TOPICAL SCH ×3 (06:00→20:31)
[2016-08-31] MEDS: POLYETHYLENE GLYCOL 17 GM PKG PO SCH (08:38)
[2016-08-31] MEDS: DIVALPROEX SODIUM DELAYED RELEASE 250 MG TAB PO SCH (08:39)
[2016-08-31] MEDS: BENZTROPINE MESYLATE 1 MG TAB PO SCH ×2 (08:39→20:27)
[2016-08-31] MEDS: DOCUSATE SODIUM 100 MG CAP PO SCH ×2 (08:40→20:27)
[2016-08-31] MEDS: BACITRACIN TOP OINT 15 GM TUBE TOPICAL SCH ×2 (08:44→20:32)
[2016-08-31] MEDS: PARoxetine HCL 20 MG TAB PO SCH (09:00)
--- NOTE | 2016-08-31 11:15 | HHI.PYPN ---
Subjective Remarks Patient seen and examined with counselor and nurse. Chart reviewed. Case discussed with counselor, nurse and occupational therapist in treatment team. Per nursing staff, patient has been no behavioral problem. Occupational therapist reports that the patient is doing very well in groups and is noted to be nurturing other more acutely ill patients. On my examination today, the patient reports that the visual hallucinations she complained of yesterday are lessened since we titrated her Abilify. She does not complain of any command auditory hallucinations. No suicidal ideation. Affect is bright and the patient is noted to be smiling and joking with her one-to-one. She denies side effects from medications. I extend offer from Dr. Kwan regarding aspiration of the knee joint, and the patient declines at this time. Review of Systems Except as stated in HPI: all other systems reviewed are Neg Objective Alert: Yes [place]: Person, Place, Date, Situation Mood: Calm Affect: Euthymic Memory Intact: Comment (remains intact) Hallucinations: Auditory (no command auditory hallucinations reported), Visual (decreasing) Delusions: No Delusion Type: Other (no delusions elicited) Suicidal: Ideation (no suicidal ideation) Homicidal: Ideation (no homicidal ideation) Insight/Judgment Poor Remarks No abnormal motor movements noted. Labs Labs reviewed. Test 08/30/16 15:31 White Blood Count 7.3 TH/MM3 Red Blood Count 4.38 MIL/MM3 Hemoglobin 11.7 GM/DL Hematocrit 36.8 % Mean Corpuscular Volume 84.0 FL Mean Corpuscular Hemoglobin 26.8 PG Mean Corpuscular Hemoglobin 31.9 % Concent Red Cell Distribution Width 14.7 % Platelet Count 269 TH/MM3 Mean Platelet Volume 9.0 FL Neutrophils (%) (Auto) 46.8 % Lymphocytes (%) (Auto) 43.4 % Monocytes (%) (Auto) 9.0 % Eosinophils (%) (Auto) 0.0 % Basophils (%) (Auto) 0.8 % Neutrophils # (Auto) 3.4 TH/MM3 Lymphocytes # (Auto) 3.2 TH/MM3 Monocytes # (Auto) 0.7 TH/MM3 Eosinophils # (Auto) 0.0 TH/MM3 Basophils # (Auto) 0.1 TH/MM3 CBC Comment DIFF FINAL Differential Comment Vitals/IOs Vital Signs Date Time Temp Pulse Resp B/P Pulse Ox O2 Delivery O2 Flow Rate FiO2 08/31/16 06:00 97.4 87 18 110/56 100 Assessment & Plan Problem List: (1) Paranoid type schizophrenia, chronic state with acute exacerbation ICD Code: F20.0 (2) Depressive disorder ICD Code: F32.9 Assessment & Plan Continue Abilify as ordered. Continue other psychotropics as ordered. Continue one-to-one for safety. Continue to monitor on the high acuity unit. Continue other medications and care as ordered. Justification for Cont. Inpt. High risk for decompensation in a less restrictive environment. Discharge Planning [facility] referral Request HC Surrog/Guard Advoc?: Yes Moshe Mcclendon MD Aug 31, 2016 11:15
[2016-08-31 17:39] VITALS: BP 144/71; PULSE 85; RESP 19; TEMP 98.7; O2SAT 98
[2016-08-31] MEDS: MIRTAZAPINE 15 MG TAB PO SCH (20:26)
[2016-08-31] MEDS: ARIPiprazole 15 MG TAB PO SCH (20:27)
[2016-08-31] MEDS: NAPROXEN 500 MG TAB PO PRN (20:27)
[2016-08-31] MEDS: cloZAPine 100 MG TAB PO SCH (20:27)
[2016-08-31] MEDS: DIVALPROEX DR 500 MG TABEC PO SCH (20:27)
[2016-08-31] MEDS: diphenhydrAMINE HCL 50 MG CAP PO SCH (20:27)
[2016-09-01 05:53] VITALS: BP 114/64; PULSE 96; RESP 18; TEMP 97.2; O2SAT 97
[2016-09-01] MEDS: MUPIROCIN 2% OINT 22 GM TUBE TOPICAL SCH ×3 (06:00→21:03)
[2016-09-01] MEDS: BENZTROPINE MESYLATE 1 MG TAB PO SCH ×2 (08:27→20:29)
[2016-09-01] MEDS: NAPROXEN 500 MG TAB PO PRN ×2 (08:27→20:29)
[2016-09-01] MEDS: DOCUSATE SODIUM 100 MG CAP PO SCH ×2 (08:27→20:29)
[2016-09-01] MEDS: PARoxetine HCL 20 MG TAB PO SCH (08:27)
[2016-09-01] MEDS: DIVALPROEX SODIUM DELAYED RELEASE 250 MG TAB PO SCH (08:27)
[2016-09-01] MEDS: BACITRACIN TOP OINT 15 GM TUBE TOPICAL SCH ×2 (08:30→21:00)
[2016-09-01] MEDS: POLYETHYLENE GLYCOL 17 GM PKG PO SCH (08:30)
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
[2016-09-01 18:42] VITALS: BP 123/58; PULSE 106; RESP 17; TEMP 98.7; O2SAT 98
[2016-09-01] MEDS: cloZAPine 100 MG TAB PO SCH (20:27)
[2016-09-01] MEDS: DIVALPROEX DR 500 MG TABEC PO SCH (20:28)
[2016-09-01] MEDS: diphenhydrAMINE HCL 50 MG CAP PO SCH (20:28)
[2016-09-01] MEDS: MIRTAZAPINE 15 MG TAB PO SCH (20:28)
[2016-09-01] MEDS: ARIPiprazole 15 MG TAB PO SCH (20:29)
[2016-09-01] MEDS: ACETAMINOPHEN 325 MG TAB PO PRN (21:40)
[2016-09-01] MEDS: LORazepam 1 MG TAB PO PRN (22:03)
[2016-09-02] MEDS: MUPIROCIN 2% OINT 22 GM TUBE TOPICAL SCH ×3 (05:28→21:25)
[2016-09-02 05:33] VITALS: BP 117/66; PULSE 88; RESP 18; TEMP 98; O2SAT 100
[2016-09-02] MEDS: DOCUSATE SODIUM 100 MG CAP PO SCH ×2 (08:50→21:07)
[2016-09-02] MEDS: DIVALPROEX SODIUM DELAYED RELEASE 250 MG TAB PO SCH (08:51)
[2016-09-02] MEDS: PARoxetine HCL 20 MG TAB PO SCH (08:51)
[2016-09-02] MEDS: BENZTROPINE MESYLATE 1 MG TAB PO SCH ×2 (08:51→21:06)
[2016-09-02] MEDS: POLYETHYLENE GLYCOL 17 GM PKG PO SCH (08:51)
[2016-09-02] MEDS: BACITRACIN TOP OINT 15 GM TUBE TOPICAL SCH ×2 (08:53→21:00)
--- NOTE | 2016-09-02 11:53 | HHI.PYPN ---
Subjective Remarks Patient seen and examined with counselor. Chart reviewed. Patient remains on one-to-one for safety. Case discussed with nursing staff reports patient has been no real behavioral problem. On my examination today, the patient is in good spirits. She was participating in project group shortly before our interview. She does report some ongoing command auditory hallucinations to self injure but these are tolerable and she articulates no desire to actually engage in self-injurious behavior. She does complain of ongoing left knee pain and feels like the ibuprofen worked better than the naproxen and wishes to switch back to this. Denies side effects from medications. No other issues noted. Review of Systems Except as stated in HPI: all other systems reviewed are Neg Objective Alert: Yes [place]: Person, Place, Date, Situation Mood: Calm Affect: Euthymic Memory Intact: Comment (intact) Hallucinations: Auditory (ongoing CAH as above) Delusions: No Delusion Type: Other (no delusional material) Suicidal: Ideation (no suicidal ideation) Homicidal: Ideation (no homicidal ideation) Insight/Judgment Poor Remarks No motor abnormalities noted. Thought process linear. Labs Labs reviewed. Vitals/IOs Vital Signs Date Time Temp Pulse Resp B/P Pulse Ox O2 Delivery O2 Flow Rate FiO2 09/02/16 05:33 98.0 88 18 117/66 100 Intake and Output 09/01/16 09/01/16 09/02/16 08:00 16:00 00:00 Intake Total 240 ml Balance 240 ml Assessment & Plan Problem List: (1) Paranoid type schizophrenia, chronic state with acute exacerbation ICD Code: F20.0 (2) Depressive disorder ICD Code: F32.9 Assessment & Plan Continue psychotropics as ordered. I will administer one time dose of Toradol for patient's left knee pain. I will switch the naproxen back to ibuprofen. Continue other medications and care as ordered. Continue to monitor on the high acuity unit. Justification for Cont. Inpt. High risk for decompensation in a restrictive environment. [facility] Counselor has emailed the state to determine patient's place on the state wait list and is waiting to hear back. Request HC Surrog/Guard Advoc?: Yes Moshe Mcclendon MD Sep 02, 2016 11:52
[2016-09-02] MEDS ORDERED: KETOROLAC TROMETHAMINE 60 MG/2 ML (IM) VIAL IM ONE (12:00)
[2016-09-02 19:00] VITALS: BP 130/63; PULSE 120; RESP 16; TEMP 97.8; O2SAT 99
[2016-09-02] MEDS: IBUPROFEN 800 MG TAB PO PRN (19:31)
[2016-09-02] MEDS: DIVALPROEX DR 500 MG TABEC PO SCH (21:06)
[2016-09-02] MEDS: MIRTAZAPINE 15 MG TAB PO SCH (21:07)
[2016-09-02] MEDS: ARIPiprazole 15 MG TAB PO SCH (21:07)
[2016-09-02] MEDS: diphenhydrAMINE HCL 50 MG CAP PO SCH (21:07)
[2016-09-02] MEDS: cloZAPine 100 MG TAB PO SCH (21:07)
[2016-09-02] MEDS: ACETAMINOPHEN 325 MG TAB PO PRN (21:08)
[2016-09-03 05:34] VITALS: BP 128/83; PULSE 86; RESP 17; TEMP 98.4; O2SAT 97
[2016-09-03] MEDS: MUPIROCIN 2% OINT 22 GM TUBE TOPICAL SCH ×3 (05:47→21:55)
[2016-09-03] MEDS: BACITRACIN TOP OINT 15 GM TUBE TOPICAL SCH ×2 (09:00→21:00)
[2016-09-03] MEDS: POLYETHYLENE GLYCOL 17 GM PKG PO SCH (09:17)
[2016-09-03] MEDS: DOCUSATE SODIUM 100 MG CAP PO SCH ×2 (09:17→21:12)
[2016-09-03] MEDS: PARoxetine HCL 20 MG TAB PO SCH (09:18)
[2016-09-03] MEDS: DIVALPROEX SODIUM DELAYED RELEASE 250 MG TAB PO SCH (09:18)
[2016-09-03] MEDS: BENZTROPINE MESYLATE 1 MG TAB PO SCH ×2 (09:18→21:11)
[2016-09-03] MEDS: IBUPROFEN 800 MG TAB PO PRN (09:23)
--- NOTE | 2016-09-03 11:29 | HHI.PYPN ---
Subjective Remarks Patient seen and examined with counselor and nurse. Chart reviewed. Case discussed with nursing staff who reports patient has been no behavioral problem. Patient remains without one-to-one for safety. On my examination today, I find the patient playing cards in the recreation area. She is upbeat and generally in good spirits. She continues to articulate some command auditory hallucinations but does not report any active urge to self injure. Denies side effects from medications. Continues to complain of left knee pain. Review of Systems Except as stated in HPI: all other systems reviewed are Neg Objective Alert: Yes [place]: Person, Place, Date, Situation Mood: Calm Affect: Euthymic Memory Intact: Comment (remains intact) Hallucinations: Auditory (CAH, minimal) Delusions: No Delusion Type: Other (No delusions) Suicidal: Ideation (No SI) Homicidal: Ideation (No HI) Insight/Judgment Poor Remarks No abnormal motor movements noted. Labs Labs reviewed. BMP is pending. Vitals/IOs Vital Signs Date Time Temp Pulse Resp B/P Pulse Ox O2 Delivery O2 Flow Rate FiO2 09/03/16 05:34 98.4 86 17 128/83 97 Assessment & Plan Problem List: (1) Paranoid type schizophrenia, chronic state with acute exacerbation ICD Code: F20.0 (2) Depressive disorder Assessment & Plan: improved. ICD Code: F32.9 Assessment & Plan Continue current psychotropics as ordered. Continue 1:1 for safety. Continue other medications and care as ordered. Justification for Cont. Inpt. High risk for decompensation in a less restrictive setting. Discharge Planning [facility]; pt is #4 on the wait-list per counselor. Request HC Surrog/Guard Advoc?: Yes Moshe Mcclendon MD Sep 03, 2016 11:29
[2016-09-03 12:29] LABS: BICARBONATE 25.8 MEQ/L (21.0-32.0); POTASSIUM 4.3 MEQ/L (3.5-5.1)
[2016-09-03 17:39] VITALS: BP 140/60; PULSE 125; RESP 20; TEMP 98.3; O2SAT 98
[2016-09-03] MEDS: MIRTAZAPINE 15 MG TAB PO SCH (21:00)
[2016-09-03] MEDS: DIVALPROEX DR 500 MG TABEC PO SCH (21:10)
[2016-09-03] MEDS: diphenhydrAMINE HCL 50 MG CAP PO SCH (21:10)
[2016-09-03] MEDS: cloZAPine 100 MG TAB PO SCH (21:15)
[2016-09-03] MEDS: ARIPiprazole 15 MG TAB PO SCH (21:15)
[2016-09-04] MEDS: MUPIROCIN 2% OINT 22 GM TUBE TOPICAL SCH ×3 (03:35→22:00)
[2016-09-04 05:23] VITALS: BP 133/76; PULSE 85; RESP 18; TEMP 97.8; O2SAT 97
[2016-09-04] MEDS ORDERED: ZIPRASIDONE MESYLATE 20 MG VIAL IM ONE ×2 (07:15→07:18)
[2016-09-04] MEDS: BACITRACIN TOP OINT 15 GM TUBE TOPICAL SCH ×2 (09:00→21:16)
[2016-09-04] MEDS: POLYETHYLENE GLYCOL 17 GM PKG PO SCH (09:00)
[2016-09-04] MEDS: DOCUSATE SODIUM 100 MG CAP PO SCH ×2 (09:18→21:00)
[2016-09-04] MEDS: DIVALPROEX SODIUM DELAYED RELEASE 250 MG TAB PO SCH (09:19)
[2016-09-04] MEDS: PARoxetine HCL 20 MG TAB PO SCH (09:19)
[2016-09-04] MEDS: BENZTROPINE MESYLATE 1 MG TAB PO SCH ×2 (09:19→21:10)
--- NOTE | 2016-09-04 13:42 | HHI.PYPN ---
Subjective Remarks Pt seen and discussed with staff. She c/o of AH this morning and requested geodon IM. She tolerated medication without side effects and reports that AH have decreased and she is feeling better. She remains on 1:1 for safety. Objective Alert: Yes [place]: Person, Place, Date, Situation Mood: Calm Affect: Restricted Memory Intact: Comment (remains intact) Hallucinations: Auditory (CAH, minimal) Delusions: No Delusion Type: Other (No delusions) Suicidal: Ideation (No SI) Homicidal: Ideation (No HI) Insight/Judgment poor Vitals/IOs Vital Signs Date Time Temp Pulse Resp B/P Pulse Ox O2 Delivery O2 Flow Rate FiO2 09/04/16 05:23 97.8 85 18 133/76 97 Assessment & Plan Problem List: (1) Paranoid type schizophrenia, chronic state with acute exacerbation ICD Code: F20.0 (2) Depressive disorder ICD Code: F32.9 Assessment & Plan Continue current tx plan. Estimated LOS: days Justification for Cont. Inpt. impairments in safety and reality construction. Risks of decompensation at lower level of care Request HC Surrog/Guard Advoc?: Yes Diane Longoria MD Sep 04, 2016 13:42
[2016-09-04 18:22] VITALS: BP 104/77; PULSE 123; RESP 19; TEMP 98.5; O2SAT 97
[2016-09-04] MEDS: ALUMINUM/MAGNESIUM/SIMETH 30 ML CUP PO PRN (19:20)
[2016-09-04] MEDS: IBUPROFEN 800 MG TAB PO PRN (21:08)
[2016-09-04] MEDS: MIRTAZAPINE 15 MG TAB PO SCH (21:08)
[2016-09-04] MEDS: ARIPiprazole 15 MG TAB PO SCH (21:09)
[2016-09-04] MEDS: DIVALPROEX DR 500 MG TABEC PO SCH (21:09)
[2016-09-04] MEDS: cloZAPine 100 MG TAB PO SCH (21:10)
[2016-09-04] MEDS: diphenhydrAMINE HCL 50 MG CAP PO SCH (21:10)
[2016-09-05 05:38] VITALS: BP 143/88; PULSE 80; RESP 16; O2SAT 96
[2016-09-05] MEDS: MUPIROCIN 2% OINT 22 GM TUBE TOPICAL SCH ×3 (06:00→22:00)
[2016-09-05] MEDS: DIVALPROEX SODIUM DELAYED RELEASE 250 MG TAB PO SCH (08:07)
[2016-09-05] MEDS: PARoxetine HCL 20 MG TAB PO SCH (08:07)
[2016-09-05] MEDS: DOCUSATE SODIUM 100 MG CAP PO SCH ×2 (08:08→21:01)
[2016-09-05] MEDS: IBUPROFEN 800 MG TAB PO PRN (08:08)
[2016-09-05] MEDS: BENZTROPINE MESYLATE 1 MG TAB PO SCH ×2 (08:09→21:02)
[2016-09-05] MEDS: POLYETHYLENE GLYCOL 17 GM PKG PO SCH (08:45)
[2016-09-05] MEDS: BACITRACIN TOP OINT 15 GM TUBE TOPICAL SCH ×2 (08:46→21:00)
--- NOTE | 2016-09-05 15:14 | HHI.PYPN ---
Subjective Remarks Pt seen and discussed with staff. Pt reports AH decreased and less impairing. She has been more social in milieu. No aggression or agitation. No medication side effects. Objective Alert: Yes [place]: Person, Place, Date, Situation Mood: Calm Affect: Restricted Memory Intact: Comment (remains intact) Hallucinations: Auditory (CAH, mild) Delusions: No Delusion Type: Other (No delusions) Suicidal: Ideation ("sometimes") Homicidal: Ideation (No HI) Insight/Judgment poor Vitals/IOs Vital Signs Date Time Temp Pulse Resp B/P Pulse Ox O2 Delivery O2 Flow Rate FiO2 09/05/16 05:38 80 16 143/88 96 09/04/16 18:22 98.5 Assessment & Plan Problem List: (1) Paranoid type schizophrenia, chronic state with acute exacerbation ICD Code: F20.0 (2) Depressive disorder ICD Code: F32.9 Assessment & Plan Continue current tx plan. Estimated LOS: days Justification for Cont. Inpt. impairments in reality testing and safety Request HC Surrog/Guard Advoc?: Yes Diane Longoria MD Sep 05, 2016 15:14
[2016-09-05 17:58] VITALS: BP 132/73; PULSE 120; RESP 18; TEMP 98.1; O2SAT 98
[2016-09-05] MEDS: ARIPiprazole 15 MG TAB PO SCH (21:01)
[2016-09-05] MEDS: MIRTAZAPINE 15 MG TAB PO SCH (21:01)
[2016-09-05] MEDS: LORazepam 1 MG TAB PO PRN (21:01)
[2016-09-05] MEDS: DIVALPROEX DR 500 MG TABEC PO SCH (21:02)
[2016-09-05] MEDS: diphenhydrAMINE HCL 50 MG CAP PO SCH (21:02)
[2016-09-05] MEDS: cloZAPine 100 MG TAB PO SCH (21:02)
[2016-09-05] MEDS: ALUMINUM/MAGNESIUM/SIMETH 30 ML CUP PO PRN (22:23)
[2016-09-06] MEDS: MUPIROCIN 2% OINT 22 GM TUBE TOPICAL SCH ×3 (06:00→21:21)
[2016-09-06 06:11] VITALS: BP 125/65; PULSE 88; RESP 16; TEMP 97.7; O2SAT 96
[2016-09-06] MEDS: PARoxetine HCL 20 MG TAB PO SCH (09:00)
[2016-09-06] MEDS: DOCUSATE SODIUM 100 MG CAP PO SCH ×2 (09:00→21:19)
[2016-09-06] MEDS: DIVALPROEX SODIUM DELAYED RELEASE 250 MG TAB PO SCH (09:00)
[2016-09-06] MEDS: BENZTROPINE MESYLATE 1 MG TAB PO SCH ×2 (09:00→21:19)
[2016-09-06] MEDS: POLYETHYLENE GLYCOL 17 GM PKG PO SCH (09:00)
[2016-09-06] MEDS: BACITRACIN TOP OINT 15 GM TUBE TOPICAL SCH ×2 (09:00→21:00)
[2016-09-06] MEDS: IBUPROFEN 800 MG TAB PO PRN ×2 (09:05→10:00)
--- NOTE | 2016-09-06 10:21 | HHI.PYPN ---
Subjective Remarks Patient seen and examined with counselor. Chart reviewed. Case discussed with nursing staff who reports the patient continues to do well on the unit with no evidence of self-injurious behavior. On my examination today, the patient is out playing basketball. She is in good spirits. She reports minimal command auditory hallucinations to self injure with no particular urge to do so. She did have an episode of dysphoria this morning but was transient and passed quickly. She denies side effects from medications. She does note that she is trying to eat more salads in an effort to lose weight. Review of Systems Except as stated in HPI: all other systems reviewed are Neg Objective Alert: Yes [place]: Person, Place, Date, Situation Mood: Calm Affect: Euthymic Memory Intact: Comment (intact) Hallucinations: Auditory (minimal CAH) Delusions: No Delusion Type: Other (No delusions) Suicidal: Ideation (no SI) Homicidal: Ideation (No HI) Insight/Judgment Poor Remarks No motor abnormalities noted. Thought process linear. Labs Labs reviewed. Vitals/IOs Vital Signs Date Time Temp Pulse Resp B/P Pulse Ox O2 Delivery O2 Flow Rate FiO2 09/06/16 06:11 97.7 88 16 125/65 96 Weights reviewed. I do note that the patient has gained a significant amount of weight on the inpatient unit. Assessment & Plan Problem List: (1) Paranoid type schizophrenia, chronic state with acute exacerbation ICD Code: F20.0 (2) Depressive disorder ICD Code: F32.9 Assessment & Plan Continue current psychotropics as ordered. Continue one-to-one for safety. I will consult the dietitian for patient's weight gain. Continue to monitor on the high acuity unit. Continue other medications and care as ordered. Justification for Cont. Inpt. Concern for impairments in safety. High risk for decompensation in a less restrictive environment. Discharge Planning [facility] referral. I have asked the counselor to follow-up on patient's place on the [facility] wait list. Request HC Surrog/Guard Advoc?: Yes Moshe Mcclendon MD September 06, 2016 10:21
--- NOTE | 2016-09-06 12:01 | HHI.PYPN ---
Subjective Remarks This is the psychiatric progress note for August 27, 2016. Patient remains grossly psychotic and does not interact with this physician. She is mostly nonverbal with staff. She may act out suddenly as a response to auditory hallucinations. She does appear to be having internal stimuli. Review of Systems ROS Limitations: Clinical Condition Objective Alert: Yes [place]: Person Mood: Anxious Affect: Restricted Memory Intact: Comment (remains intact) Hallucinations: Auditory (CAH, mild) Delusions: Yes Delusion Type: Other (No delusions) Suicidal: Ideation ("sometimes") Homicidal: Ideation (No HI) Insight/Judgment Poor Vitals/IOs Vital Signs Date Time Temp Pulse Resp B/P Pulse Ox O2 Delivery O2 Flow Rate FiO2 09/06/16 06:11 97.7 88 16 125/65 96 Assessment & Plan Problem List: (1) Paranoid type schizophrenia, chronic state with acute exacerbation ICD Code: F20.0 (2) Depressive disorder ICD Code: F32.9 Assessment & Plan Estimated LOS: 7 days patient continues to need more time to stabilize on current antipsychotic medications. Justification for Cont. Inpt. Psychotic and unable to care for self. Request HC Surrog/Guard Advoc?: Yes Leo William MD September 06, 2016 12:00
[2016-09-06 17:21] VITALS: BP 154/73; PULSE 129; RESP 18; TEMP 98.1; O2SAT 99
[2016-09-06] MEDS: ARIPiprazole 15 MG TAB PO SCH (21:18)
[2016-09-06] MEDS: cloZAPine 100 MG TAB PO SCH (21:18)
[2016-09-06] MEDS: diphenhydrAMINE HCL 50 MG CAP PO SCH (21:18)
[2016-09-06] MEDS: MIRTAZAPINE 15 MG TAB PO SCH (21:19)
[2016-09-06] MEDS: DIVALPROEX DR 500 MG TABEC PO SCH (21:20)
[2016-09-06] MEDS: LORazepam 1 MG TAB PO PRN (21:22)
[2016-09-07] MEDS: IBUPROFEN 800 MG TAB PO PRN (02:21)
[2016-09-07 05:49] VITALS: BP 136/76; PULSE 99; RESP 18; TEMP 97.9; O2SAT 96
[2016-09-07] MEDS: MUPIROCIN 2% OINT 22 GM TUBE TOPICAL SCH ×3 (06:00→21:49)
[2016-09-07] MEDS: POLYETHYLENE GLYCOL 17 GM PKG PO SCH (09:00)
[2016-09-07] MEDS: BACITRACIN TOP OINT 15 GM TUBE TOPICAL SCH (09:00)
[2016-09-07] MEDS: DIVALPROEX SODIUM DELAYED RELEASE 250 MG TAB PO SCH (09:26)
[2016-09-07] MEDS: PARoxetine HCL 20 MG TAB PO SCH (09:26)
[2016-09-07] MEDS: DOCUSATE SODIUM 100 MG CAP PO SCH ×2 (09:27→20:23)
[2016-09-07] MEDS: BENZTROPINE MESYLATE 1 MG TAB PO SCH ×2 (09:27→20:24)
--- NOTE | 2016-09-07 09:36 | HHI.PYPN ---
Subjective Remarks Patient seen and examined with counselor and nurse. Chart reviewed. Case discussed with counselor, nurse and recreation therapist in treatment team. Per nursing staff, patient has been doing very well on the unit and slept well overnight. Recreation therapist notes that the patient has been participating well in groups and has been social. On my examination today, the patient describes her mood is somewhat down but denies any active suicidal ideation. She remains on a one-to-one. She does report some ongoing command auditory hallucinations to self injure, but these are no worse than baseline. She denies side effects from medications. She continues to complain of some left knee pain. Review of Systems Except as stated in HPI: all other systems reviewed are Neg Objective Alert: Yes [place]: Person Mood: Calm (somewhat dysphoric) Affect: Blunted Memory Intact: Comment (remains intact) Hallucinations: Auditory (again minimal CAH) Delusions: Yes Delusion Type: Other (No delusions) Suicidal: Ideation (no SI) Homicidal: Ideation (No HI) Insight/Judgment Poor Remarks Thought process linear. No abnormal motor movements noted. Labs Labs reviewed. No new labs. Vitals/IOs Vital Signs Date Time Temp Pulse Resp B/P Pulse Ox O2 Delivery O2 Flow Rate FiO2 09/07/16 05:49 97.9 99 18 136/76 96 Assessment & Plan Problem List: (1) Paranoid type schizophrenia, chronic state with acute exacerbation ICD Code: F20.0 (2) Depressive disorder ICD Code: F32.9 Assessment & Plan Continue current psychotropics as ordered. Patient prefers not to make any modifications to medication therapy at this time, and I do not believe that patient's dysphoria today is severe enough for persistent enough to insist upon a change at this time. I will check a CBC in the morning for clozapine therapy. I will ask the [facility] to come evaluate the patient to see if she might benefit from a knee brace to help try to limit movement at the joint. Continue one-to-one for safety. Continue to monitor on the high acuity unit. Continue other medications and care as ordered. Justification for Cont. Inpt. Concern for impairments in safety. High risk for decompensation in a restrictive environment. Discharge Planning [facility] referral. Counselor reports that the patient remains #4 on the [facility] wait list. Request HC Surrog/Guard Advoc?: Yes Moshe Mcclendon MD September 07, 2016 09:36
[2016-09-07] MEDS ORDERED: IBUPROFEN 600 MG TAB PO PRN (13:00)
[2016-09-07 18:20] VITALS: BP 129/63; PULSE 119; RESP 19; TEMP 97.7; O2SAT 97
[2016-09-07] MEDS: MIRTAZAPINE 15 MG TAB PO SCH (20:23)
[2016-09-07] MEDS: DIVALPROEX DR 500 MG TABEC PO SCH (20:23)
[2016-09-07] MEDS: diphenhydrAMINE HCL 50 MG CAP PO SCH (20:23)
[2016-09-07] MEDS: ARIPiprazole 15 MG TAB PO SCH (20:24)
[2016-09-07] MEDS: cloZAPine 100 MG TAB PO SCH (20:24)
[2016-09-08] MEDS: MUPIROCIN 2% OINT 22 GM TUBE TOPICAL SCH ×3 (06:00→20:57)
[2016-09-08 06:13] VITALS: BP 137/71; PULSE 90; RESP 18; TEMP 98.2; O2SAT 96
[2016-09-08] MEDS: DIVALPROEX SODIUM DELAYED RELEASE 250 MG TAB PO SCH (08:39)
[2016-09-08] MEDS: BENZTROPINE MESYLATE 1 MG TAB PO SCH ×2 (08:39→20:56)
[2016-09-08] MEDS: PARoxetine HCL 20 MG TAB PO SCH (08:39)
[2016-09-08] MEDS: DOCUSATE SODIUM 100 MG CAP PO SCH ×2 (08:40→20:56)
[2016-09-08] MEDS: POLYETHYLENE GLYCOL 17 GM PKG PO SCH (08:40)
[2016-09-08 11:05] LABS: AUTOMATED NEUTROPHIL # 2.6 TH/MM3 (1.8-7.7); BASOPHIL # 0.1 TH/MM3 (0-0.2); BASOPHIL % 0.9 % (0.0-2.0); EOSINOPHIL % 0.1 % (0.0-4.0); HEMO FLAGS DIFF FINAL; LYMPHOCYTE # 2.3 TH/MM3 (1.0-4.8); MEAN CORPUSCULAR HEMOGLOBIN 27.2 PG (27.0-34.0); MEAN CORPUSCULAR HGB CONC 33.1 % (32.0-36.0); MONO % 12.6 % (0.0-8.0); NEUT % 45.4 % (16.0-70.0); PLATELET COUNT 243 TH/MM3 (150-450); RED BLOOD COUNT 4.27 MIL/MM3 (4.00-5.30); RED CELL DISTRIBUTION WIDTH 14.7 % (11.6-17.2); WHITE BLOOD COUNT 5.7 TH/MM3 (4.0-11.0)
--- NOTE | 2016-09-08 11:40 | HHI.PYPN ---
Subjective Remarks Patient seen and examined with counselor and nurse. Chart reviewed. Case d/w RN who reports patient has grown increasingly seclusive. She was seen by the [facility] and given a knee brace. On my examination today, patient presents as dysphoric. She agrees her mood has taken a turn for the worse but can identify no trigger for this. She denies SI but does endorse some ongoing CAH to self- injure as before. She is resistant to a med change at this time to target dysphoria, but we agree that if mood is no better by tomorrow we will plan to make an adjustment in service of this. She remains on 1:1 for safety. Denies side effects from meds. Review of Systems Except as stated in HPI: all other systems reviewed are Neg Objective Alert: Yes [place]: Person Mood: Depressed Affect: Blunted Memory Intact: Comment (remains intact) Hallucinations: Auditory (minimal CAH) Delusions: Yes Delusion Type: Other (No delusions) Suicidal: Ideation (no SI) Homicidal: Ideation (No HI) Insight/Judgment poor Remarks TP linear. No motor abnormalities noted. Speech a little soft. Labs Test 09/08/16 10:35 White Blood Count 5.7 TH/MM3 Red Blood Count 4.27 MIL/MM3 Hemoglobin 11.6 GM/DL Hematocrit 35.0 % Mean Corpuscular Volume 82.0 FL Mean Corpuscular Hemoglobin 27.2 PG Mean Corpuscular Hemoglobin 33.1 % Concent Red Cell Distribution Width 14.7 % Platelet Count 243 TH/MM3 Mean Platelet Volume 8.7 FL Neutrophils (%) (Auto) 45.4 % Lymphocytes (%) (Auto) 41.0 % Monocytes (%) (Auto) 12.6 % Eosinophils (%) (Auto) 0.1 % Basophils (%) (Auto) 0.9 % Neutrophils # (Auto) 2.6 TH/MM3 Lymphocytes # (Auto) 2.3 TH/MM3 Monocytes # (Auto) 0.7 TH/MM3 Eosinophils # (Auto) 0.0 TH/MM3 Basophils # (Auto) 0.1 TH/MM3 CBC Comment DIFF FINAL Differential Comment Labs reviewed. ANC remains adequate for clozapine therapy. Vitals/IOs Vital Signs Date Time Temp Pulse Resp B/P Pulse Ox O2 Delivery O2 Flow Rate FiO2 09/08/16 06:13 98.2 90 18 137/71 96 Assessment & Plan Problem List: (1) Paranoid type schizophrenia, chronic state with acute exacerbation ICD Code: F20.0 (2) Depressive disorder ICD Code: F32.9 Assessment & Plan Concern for depressive relapse. No reports of med non-adherence. Continue current psychotropics as ordered for now. I have encouraged patient to participate in groups and fresh air time in order to avoid further deterioration in her mood. If mood is no better or worse tomorrow, we will change pharmacotherapy. Continue 1:1. Continue to monitor on high acuity unit. Continue other meds and care as ordered. Justification for Cont. Inpt. Concern for impairment in safety. High risk for decompensation in a less restrictive environment. Discharge Planning [facility]. Request HC Surrog/Guard Advoc?: Yes Moshe Mcclendon MD September 08, 2016 11:40
[2016-09-08 18:15] VITALS: BP 134/62; PULSE 112; RESP 18; TEMP 98.4; O2SAT 99
[2016-09-08] MEDS: ARIPiprazole 15 MG TAB PO SCH (20:56)
[2016-09-08] MEDS: cloZAPine 100 MG TAB PO SCH (20:56)
[2016-09-08] MEDS: DIVALPROEX DR 500 MG TABEC PO SCH (20:56)
[2016-09-08] MEDS: MIRTAZAPINE 15 MG TAB PO SCH (20:56)
[2016-09-08] MEDS: diphenhydrAMINE HCL 50 MG CAP PO SCH (20:56)
[2016-09-09] MEDS: MUPIROCIN 2% OINT 22 GM TUBE TOPICAL SCH ×3 (05:13→21:16)
[2016-09-09 05:18] VITALS: BP 121/79; PULSE 104; RESP 18; TEMP 98.3; O2SAT 99
[2016-09-09] MEDS: BENZTROPINE MESYLATE 1 MG TAB PO SCH ×2 (09:55→21:13)
[2016-09-09] MEDS: DOCUSATE SODIUM 100 MG CAP PO SCH ×2 (09:55→21:13)
[2016-09-09] MEDS: PARoxetine HCL 20 MG TAB PO SCH (09:55)
[2016-09-09] MEDS: DIVALPROEX SODIUM DELAYED RELEASE 250 MG TAB PO SCH (09:56)
[2016-09-09] MEDS: POLYETHYLENE GLYCOL 17 GM PKG PO SCH (09:56)
--- NOTE | 2016-09-09 11:13 | HHI.PYPN ---
Subjective Remarks Patient seen and examined with counselor. Chart reviewed. I note that the patient has produced a letter saying that her happy appearance in previous days was just a facade and that she remains deeply troubled by her psychiatric symptoms. Case discussed with nursing staff who reports patient slept poorly but exhibited no self injury. Patient remains on one-to-one for safety. On my examination today, the patient once again appears to be in good spirits. She is out for fresh air. We discussed the contents of the letter and the need for honesty in discussing psychiatric symptomatology, and she agrees that she will be more transparent regarding the degree of her psychiatric symptoms going forward. She does admit to some difficulty with recrudescence of her command auditory hallucinations. She also is entertaining suicidal thoughts although she denies any urge to injure herself on the inpatient psychiatric unit. She denies side effects from medications. After a discussion of her options from a psychopharmacologic standpoint, she wishes to titrate her Abilify. Review of Systems Except as stated in HPI: all other systems reviewed are Neg Objective Alert: Yes [place]: Person Mood: Depressed Affect: Other (more euthymic than stated mood) Memory Intact: Comment (remains intact) Hallucinations: Auditory (command auditory hallucinations to self injure) Delusions: Yes Delusion Type: Other (No delusions) Suicidal: Ideation (suicidal ideation no plan or intent) Homicidal: Ideation (No HI) Insight/Judgment Poor Remarks No motor abnormalities noted. Thought process linear. Speech within normal limits for rate, tone and volume. Grooming and hygiene fair. Labs Labs reviewed. Vitals/IOs Vital Signs Date Time Temp Pulse Resp B/P Pulse Ox O2 Delivery O2 Flow Rate FiO2 09/09/16 05:18 98.3 104 18 121/79 99 Assessment & Plan Problem List: (1) Paranoid type schizophrenia, chronic state with acute exacerbation ICD Code: F20.0 (2) Depressive disorder ICD Code: F32.9 Assessment & Plan Titrate Abilify to 20 mg at bedtime. Continue other psychotropics as ordered. Continue one-to-one for safety. Continue to monitor on the high acuity unit. Continue other medications and care as ordered. Justification for Cont. Inpt. Impairment and safety. Impairment in reality construction. Medication changes in process. High risk for decompensation in a restrictive environment. [facility] Request HC Surrog/Guard Advoc?: Yes Moshe Mcclendon MD September 09, 2016 11:13
[2016-09-09] MEDS ORDERED: NYSTAT/DIPHENHY/LIDO MOUTHWASH (Adult) 120ML SWISH-SWAL PRN (15:15)
--- NOTE | 2016-09-09 15:19 | PD.CONS ---
[facility] By [facility] Reason for Consult Possible dental abscess Primary Care Physician No Primary Care Physician Diagnoses: (1) Depressive disorder (2) Paranoid type schizophrenia, chronic state with acute exacerbation (3) Schizophrenia (4) Knee pain, acute History of Present Illness This is a 31-year-old female patient with a past medical history which includes schizophrenia. Patient is currently admitted inpatient psychiatric services and we have been consulted for assistance with possible dental abscess. Patient reports significant swelling and pain along the front left gumline with an associated sore. However, she reports that it "popped" and is feeling much better now. She denies any fever, chills, nausea or vomiting. She denies any other complaints. She does admit to smoking cigarettes and cigars and she was counseled on cessation. Of note, we will previously consulted on this patient to assist with medical management of dyspepsia and self injury to the face. Patient has known history of tachycardia which is long-standing. Patient was also followed for left knee swelling and pain and MRI reviewed dated 08/25 revealed large joint effusion with some suprapatellar synovitis and chondromalacia involving both femoral condyles with some bony edema medially. Patient is currently wearing a left knee brace. She was evaluated by orthopedist who recommended follow-up as an outpatient. Review of Systems Except as stated in HPI: all other systems reviewed are Neg Past Family Social History Allergies: Coded Allergies: No Known Allergies (Unverified , 07/12/16) Past Medical History Schizophrenia Past Surgical History Patient denies any previous surgical history Reported Medications Mirtazapine 15 Mg Tab 45 Mg PO HS 15 Days Propranolol (Propranolol HCl) 20 Mg Tab 20 Mg PO Q12HR [address] (Divalproex Sodium) 250 Mg Tabdr 250 Mg PO BID [address] (Divalproex Sodium) 500 Mg Tabdr 500 Mg PO BID 15 Days Diphenhydramine HCl 50 Mg Cap 50 Mg PO HS 15 Days Clozaril (Clozapine) 100 Mg Tab 100 Mg PO BID Chlorpromazine (Chlorpromazine HCl) 200 Mg Tab 200 Mg PO BID (1200, 1600) Chlorpromazine (Chlorpromazine HCl) 200 Mg Tab 300 Mg PO BID (0800, 2000) Docusate Sodium 100 Mg Tab 200 Mg PO BID Prazosin (Prazosin HCl) 2 Mg Cap 2 Mg PO HS Miralax Powder (Polyethylene Glycol 3350 Powder) 17 Gm Powd 17 Gm PO DAILY Mix and dissolve one measuring cap-ful (17 grams) in water or juice. Benztropine (Benztropine Mesylate) 1 Mg Tab 1 Mg PO BID (0800,1600) Active Ordered Medications Current Medications Medications (Trade) Dose Ordered Sig/Jae Route Start Time Stop Time Status Last Admin (Ativan) 1 mg Q6H PRN PO 07/12/16 16:15 09/06/16 21:22 (Ativan Inj) 1 mg Q6H PRN IM 07/12/16 16:15 08/13/16 19:40 (Tylenol) 650 mg Q4H PRN PO 07/13/16 08:15 09/02/16 21:08 (Milk Of Magnesia Liq) 30 ml DAILY PRN PO 07/13/16 08:15 07/27/16 12:15 (Mag-Al Plus Susp Liq) 30 ml Q6H PRN PO 07/13/16 08:15 09/05/16 22:23 (Benadryl) 50 mg HS PO 07/13/16 21:00 09/08/16 20:56 (Remeron) 45 mg HS PO 07/13/16 21:00 09/08/16 20:56 (Miralax) 17 gm DAILY PO 07/13/16 09:00 09/09/16 09:56 (Colace) 200 mg BID PO 07/13/16 09:00 09/09/16 09:55 (Timi Rubalcava) 1,000 mg HS PO 07/13/16 21:00 09/08/16 20:56 (Bactroban 2% Oint) 1 applic Q8HR TOPICAL 07/15/16 22:00 09/03/16 14:00 (Pill Splitter) 1 ea UNSCH PRN OTHER 07/20/16 12:30 (Cogentin) 1.5 mg BID PO 07/26/16 21:00 09/09/16 09:55 (Dulcolax Ec) 10 mg DAILY PRN PO 07/27/16 12:45 08/06/16 08:46 (Paxil) 40 mg DAILY PO 07/30/16 09:00 09/09/16 09:55 (Depakote Dr) 1,000 mg DAILY PO 08/11/16 09:00 09/09/16 09:56 (Clozaril) 550 mg HS PO 08/27/16 21:00 09/08/16 20:56 (Abilify) 15 mg HS PO 08/30/16 21:00 09/08/16 20:56 (Motrin) 600 mg Q8H PRN PO 09/07/16 13:00 Family History Arthritis Social History Smokes two packs cigarettes per day Denies EtOH use or illicit drug use Physical Exam Vital Signs Vital Signs Date Time Temp Pulse Resp B/P Pulse Ox O2 Delivery O2 Flow Rate FiO2 09/09/16 05:18 98.3 104 18 121/79 99 09/08/16 18:15 98.4 112 18 134/62 99 Physical Exam GENERAL: This is a well-nourished, well-developed patient, in no apparent distress. Awake and alert. She is pleasant and cooperative. SKIN: Hypopigmented scars on right side of face and right upper extremity from self-inflicted abrasions. Cool and dry. HEAD: Atraumatic. Normocephalic. No temporal or scalp tenderness. EYES: Pupils equal round and reactive. Extraocular motions intact. No scleral icterus. No injection or drainage. ENT: Nose without bleeding, purulent drainage or septal hematoma. Throat without erythema, tonsillar hypertrophy or exudate. Uvula midline. Airway patent. Small lesion noted along anterior upper left gumline. No drainage appreciated. No significant edema or erythema noted. NECK: Trachea midline. No lymphadenopathy. Supple, nontender, no meningeal signs. CARDIOVASCULAR: Regular rate and rhythm without murmurs, gallops, or rubs. RESPIRATORY: Clear to auscultation. Breath sounds equal bilaterally. No wheezes , rales, or rhonchi. GASTROINTESTINAL: Abdomen soft, non-tender, nondistended. No hepato-splenomegaly , or palpable masses. No guarding. MUSCULOSKELETAL: Extremities without clubbing, cyanosis, or edema. No joint tenderness, effusion, or edema noted. No calf tenderness. Left knee brace on. NEUROLOGICAL: Awake and alert. Cranial nerves II through XII intact. Motor and sensory grossly within normal limits. Five out of 5 muscle strength in all muscle groups. Normal speech. Result Diagram: 09/08/16 1035 Imaging Last Impressions Knee MRI 08/25/16 0000 Signed Impressions: Service Date/Time: Thursday, August 25, 2016 21:23 - CONCLUSION: Large joint effusion with some suprapatellar synovitis. The chondromalacia involving both femoral condyles with some bony edema medially Roshan El MD Knee X-Ray 08/14/16 0000 Signed Impressions: Service Date/Time: Sunday, August 14, 2016 20:33 - CONCLUSION: Joint effusion. No acute fracture or joint dislocation. Sky Hines MD Head CT 08/13/16 0000 Signed Impressions: Service Date/Time: Saturday, August 13, 2016 21:59 - CONCLUSION: No intracranial abnormalities seen. There is frontal scalp swelling. Russell Loya MD Assessment and Plan Problem List: (1) Depressive disorder ICD Code: F32.9 Status: Acute (2) Paranoid type schizophrenia, chronic state with acute exacerbation ICD Code: F20.0 Status: Acute (3) Schizophrenia ICD Code: F20.9 Status: Acute (4) Knee pain, acute ICD Code: M25.569 Status: Acute Assessment and Plan 31-year-old female patient with a past medical history which includes schizophrenia. Patient is currently admitted inpatient psychiatric services and we have been consulted for assistance with possible dental abscess. //Schizophrenia -Management per psychiatric services //Possible dental abscess - Patient reports the area is much improved since the sore "popped". Examination today is unremarkable and there are no signs or symptoms of infection. White count WNL. Discussed with the patient keeping the area clean also counseled patient on importance of smoking cessation. - Magic mouthwash when necessary //Abrasion right side of face- self-inflicted - Healed //Tachycardia- long standing - Encourage by mouth fluid intake - continue propranolol - Echocardiogram to evaluate for tachycardia-induced cardiomyopathy //Left knee synovitis - Knee brace in place - Patient evaluated by Ortho service and recommended follow-up as an outpatient //Tobacco abuse - Patient counseled on health risk of tobacco abuse encouraged to abstain //DVT prophylaxis - patient is ambulatory Patient is medically stable from hospitalist standpoint. Will sign off. Please reconsult if needed. Written by Regla Simms PA-C acting as scribe for Dr. Beverly on 09/09/16 at 15 :08. This note was transcribed by luci Simms PA-C. I, Dr. Anthony Beverly personally performed the history, physical exam, and medical decision making; and confirmed the accuracy of the information in the transcribed note. Authenticated by Dr. Anthony Beverly on 09/09/16 at 19:57. Problem Qualifiers (1) Schizophrenia: Qualified Code: F20.0 - Paranoid schizophrenia Regla Simms September 09, 2016 15:19 Mayito Beverly DO September 09, 2016 19:57
[2016-09-09 16:00] VITALS: BP 154/73; PULSE 128; RESP 18; TEMP 99.7; O2SAT 97
[2016-09-09] MEDS: diphenhydrAMINE HCL 50 MG CAP PO SCH (21:11)
[2016-09-09] MEDS: cloZAPine 100 MG TAB PO SCH (21:11)
[2016-09-09] MEDS: DIVALPROEX DR 500 MG TABEC PO SCH (21:14)
[2016-09-09] MEDS: MIRTAZAPINE 15 MG TAB PO SCH (21:14)
[2016-09-10] MEDS: MUPIROCIN 2% OINT 22 GM TUBE TOPICAL SCH ×3 (05:54→20:50)
[2016-09-10 06:35] VITALS: BP 134/88; PULSE 100; RESP 18; TEMP 98; O2SAT 98
[2016-09-10] MEDS: POLYETHYLENE GLYCOL 17 GM PKG PO SCH (09:00)
--- NOTE | 2016-09-10 09:06 | HHI.PYPN ---
Subjective Remarks Patient seen and examined. Chart reviewed. Case discussed with nursing staff who reports no behavioral problems. On my examination today, patient remains on a one-to-one sitter for safety. She reports that her mood is fair and insists that she is being truthful in this report. She does endorse command auditory hallucinations but denies suicidal ideation or urge to self injure. She is tolerating titration of Abilify well without side effects but has not seen much benefit yet. No other issues noted. Review of Systems Except as stated in HPI: all other systems reviewed are Neg Objective Alert: Yes [place]: Person Mood: Calm Affect: Blunted Memory Intact: Comment (remains intact) Hallucinations: Auditory (some ongoing command auditory hallucinations to self injure) Delusions: No Delusion Type: Other (No delusions) Suicidal: Ideation (denies suicidal ideation) Homicidal: Ideation (No HI) Insight/Judgment Poor Remarks No motor abnormalities noted. Thought process linear. Labs Labs reviewed. Vitals/IOs Vital Signs Date Time Temp Pulse Resp B/P Pulse Ox O2 Delivery O2 Flow Rate FiO2 09/10/16 06:35 98.0 100 18 134/88 98 Assessment & Plan Problem List: (1) Paranoid type schizophrenia, chronic state with acute exacerbation ICD Code: F20.0 (2) Depressive disorder ICD Code: F32.9 Assessment & Plan Continue Abilify 20 mg at bedtime. Continue other psychotropics as ordered. Continue one-to-one for safety. Continue other medications and care as ordered. Justification for Cont. Inpt. Monitoring for impairments in safety. High risk for decompensation in a restrictive environment. Some impairments in reality construction. Discharge Planning [facility]. Request HC Surrog/Guard Advoc?: Yes Moshe Mcclendon MD September 10, 2016 09:06
[2016-09-10] MEDS: DOCUSATE SODIUM 100 MG CAP PO SCH ×2 (09:25→20:46)
[2016-09-10] MEDS: DIVALPROEX SODIUM DELAYED RELEASE 250 MG TAB PO SCH (09:25)
[2016-09-10] MEDS: PARoxetine HCL 20 MG TAB PO SCH (09:26)
[2016-09-10] MEDS: BENZTROPINE MESYLATE 1 MG TAB PO SCH ×2 (09:26→20:46)
[2016-09-10 18:06] VITALS: BP 115/58; PULSE 132; RESP 18; TEMP 98.2; O2SAT 97
[2016-09-10] MEDS: MIRTAZAPINE 15 MG TAB PO SCH (20:45)
[2016-09-10] MEDS: DIVALPROEX DR 500 MG TABEC PO SCH (20:47)
[2016-09-10] MEDS: cloZAPine 100 MG TAB PO SCH (20:48)
[2016-09-10] MEDS: diphenhydrAMINE HCL 50 MG CAP PO SCH (20:48)
[2016-09-11] MEDS: MUPIROCIN 2% OINT 22 GM TUBE TOPICAL SCH ×3 (05:14→20:47)
[2016-09-11] MEDS: DIVALPROEX SODIUM DELAYED RELEASE 250 MG TAB PO SCH (08:32)
[2016-09-11] MEDS: BENZTROPINE MESYLATE 1 MG TAB PO SCH ×2 (08:32→20:47)
[2016-09-11] MEDS: DOCUSATE SODIUM 100 MG CAP PO SCH ×2 (08:32→20:46)
[2016-09-11] MEDS: PARoxetine HCL 20 MG TAB PO SCH (08:33)
[2016-09-11] MEDS: POLYETHYLENE GLYCOL 17 GM PKG PO SCH (08:33)
--- NOTE | 2016-09-11 14:19 | HHI.PYPN ---
Subjective Remarks Patient was seen and case discussed with nursing. No self-injurious behavior noted in the last couple of days. Patient is pleasant but somewhat shy, guarded with poor eye contact. Per nursing she socially interactive and playing basketball. Compliant with her medications and behaving well on the unit. Jay used to have auditory hallucinations command type. Denies suicidal ideation intent or plan Objective Alert: Yes [place]: Person, Place Mood: Calm Affect: Restricted Memory Intact: Comment (remains intact) Hallucinations: Auditory Delusions: No Delusion Type: Other (No delusions) Suicidal: Ideation Homicidal: Ideation (No HI) Insight/Judgment Poor Vitals/IOs Vital Signs Date Time Temp Pulse Resp B/P Pulse Ox O2 Delivery O2 Flow Rate FiO2 09/10/16 18:06 98.2 132 18 115/58 97 Assessment & Plan Problem List: (1) Paranoid type schizophrenia, chronic state with acute exacerbation ICD Code: F20.0 (2) Depressive disorder ICD Code: F32.9 Assessment & Plan Continue current treatment plan Justification for Cont. Inpt. Patient will decompensate in a less restrictive setting Request HC Surrog/Guard Advoc?: Yes Cecilio Villafuerte DO September 11, 2016 14:19
[2016-09-11 14:53] VITALS: BP 117/66; PULSE 113; RESP 18; TEMP 99.4; O2SAT 99
[2016-09-11] MEDS: diphenhydrAMINE HCL 50 MG CAP PO SCH (20:45)
[2016-09-11] MEDS: DIVALPROEX DR 500 MG TABEC PO SCH (20:46)
[2016-09-11] MEDS: cloZAPine 100 MG TAB PO SCH (20:46)
[2016-09-11] MEDS: MIRTAZAPINE 15 MG TAB PO SCH (20:46)
[2016-09-12 05:48] VITALS: BP 114/53; PULSE 92; RESP 18; TEMP 97.6; O2SAT 99
[2016-09-12] MEDS: MUPIROCIN 2% OINT 22 GM TUBE TOPICAL SCH ×3 (06:00→21:13)
[2016-09-12] MEDS: PARoxetine HCL 20 MG TAB PO SCH (08:21)
[2016-09-12] MEDS: DIVALPROEX SODIUM DELAYED RELEASE 250 MG TAB PO SCH (08:21)
[2016-09-12] MEDS: DOCUSATE SODIUM 100 MG CAP PO SCH ×2 (08:22→21:11)
[2016-09-12] MEDS: BENZTROPINE MESYLATE 1 MG TAB PO SCH ×2 (08:22→21:12)
[2016-09-12] MEDS: POLYETHYLENE GLYCOL 17 GM PKG PO SCH (08:24)
--- NOTE | 2016-09-12 11:43 | HHI.PYPN ---
Subjective Remarks Patient was seen and case discussed with nursing. Patient remains blunted and hypoverbal. Somewhat more sullen yesterday. Continues to have intrusive voices but she is able to ignore them. Describes intensity the same as yesterday. No thoughts intention of scratching. She is eating and sleeping well Objective Alert: Yes [place]: Person, Place Mood: Calm Affect: Blunted Memory Intact: Comment (remains intact) Hallucinations: Auditory (command type) Delusions: No Delusion Type: Other (No delusions) Suicidal: Ideation Homicidal: Ideation (No HI) Insight/Judgment Poor Vitals/IOs Vital Signs Date Time Temp Pulse Resp B/P Pulse Ox O2 Delivery O2 Flow Rate FiO2 09/12/16 05:48 97.6 92 18 114/53 99 Assessment & Plan Problem List: (1) Paranoid type schizophrenia, chronic state with acute exacerbation ICD Code: F20.0 (2) Depressive disorder ICD Code: F32.9 Assessment & Plan Continue current treatment plan Justification for Cont. Inpt. Patient will decompensate in a less restrictive setting Request HC Surrog/Guard Advoc?: Yes Cecilio Villafuerte DO September 12, 2016 11:43
[2016-09-12 18:12] VITALS: BP 119/71; PULSE 98; RESP 18; TEMP 98.9; O2SAT 97
[2016-09-12] MEDS: DIVALPROEX DR 500 MG TABEC PO SCH (21:11)
[2016-09-12] MEDS: diphenhydrAMINE HCL 50 MG CAP PO SCH (21:11)
[2016-09-12] MEDS: cloZAPine 100 MG TAB PO SCH (21:11)
[2016-09-12] MEDS: MIRTAZAPINE 15 MG TAB PO SCH (21:12)
[2016-09-13] MEDS: MUPIROCIN 2% OINT 22 GM TUBE TOPICAL SCH ×2 (06:00→12:44)
[2016-09-13 06:03] VITALS: BP 92/56; PULSE 87; RESP 17; TEMP 98.7; O2SAT 100
--- NOTE | 2016-09-13 10:17 | HHI.PYPN ---
Subjective Remarks Patient seen and examined with counselor and nurse. Chart reviewed. Case discussed with nursing staff. On my examination today, the patient is sleeping in her room. She has a one-to-one for safety. She is easily awakened. She says that she slept poorly overnight due to a nightmare which is not typical for her. She says that her command auditory hallucinations to self injure are "okay." She denies suicidal ideation "right now." Denies side effects from medications. Review of Systems Except as stated in HPI: all other systems reviewed are Neg Objective Alert: Yes [place]: Person, Place Mood: Calm Affect: Blunted (remains fairly blunted) Memory Intact: Comment (remains intact) Hallucinations: Auditory (CAH as above) Delusions: No Delusion Type: Other (no delusional material) Suicidal: Ideation (denies active suicidal ideation at this time) Homicidal: Ideation (No HI) Insight/Judgment Poor Remarks No motor abnormalities noted Labs Labs reviewed. Vitals/IOs Vital Signs Date Time Temp Pulse Resp B/P Pulse Ox O2 Delivery O2 Flow Rate FiO2 09/13/16 06:03 98.7 87 17 92/56 100 Assessment & Plan Problem List: (1) Paranoid type schizophrenia, chronic state with acute exacerbation ICD Code: F20.0 (2) Depressive disorder ICD Code: F32.9 Assessment & Plan Continue current psychiatric medications as ordered. Continue to monitor on the high acuity unit. Continue one-to-one for safety. Continue other medications and care as ordered. Justification for Cont. Inpt. Concern for impairment in safety. High risk for decompensation in a restrictive environment. Discharge Planning Counselor informs me that the patient has a state psychiatric hospital admission date: 09/17/2016. Request HC Surrog/Guard Advoc?: Yes Moshe Mcclendon MD September 13, 2016 10:16
[2016-09-13] MEDS: DIVALPROEX SODIUM DELAYED RELEASE 250 MG TAB PO SCH (10:30)
[2016-09-13] MEDS: POLYETHYLENE GLYCOL 17 GM PKG PO SCH (10:30)
[2016-09-13] MEDS: DOCUSATE SODIUM 100 MG CAP PO SCH ×2 (10:30→21:21)
[2016-09-13] MEDS: BENZTROPINE MESYLATE 1 MG TAB PO SCH ×2 (10:30→21:22)
[2016-09-13] MEDS: PARoxetine HCL 20 MG TAB PO SCH (10:31)
[2016-09-13 17:42] VITALS: BP 160/64; PULSE 106; RESP 16; TEMP 98.8; O2SAT 98
[2016-09-13] MEDS: diphenhydrAMINE HCL 50 MG CAP PO SCH (21:22)
[2016-09-13] MEDS: MIRTAZAPINE 15 MG TAB PO SCH (21:22)
[2016-09-13] MEDS: DIVALPROEX DR 500 MG TABEC PO SCH (21:22)
[2016-09-13] MEDS: cloZAPine 100 MG TAB PO SCH (21:24)
[2016-09-14 05:52] VITALS: BP 110/56; PULSE 86; RESP 16; TEMP 98.2; O2SAT 98
[2016-09-14] MEDS: POLYETHYLENE GLYCOL 17 GM PKG PO SCH (09:00)
[2016-09-14] MEDS: PARoxetine HCL 20 MG TAB PO SCH (09:33)
[2016-09-14] MEDS: BENZTROPINE MESYLATE 1 MG TAB PO SCH ×2 (09:34→21:15)
[2016-09-14] MEDS: DOCUSATE SODIUM 100 MG CAP PO SCH ×2 (09:34→21:14)
[2016-09-14] MEDS: DIVALPROEX SODIUM DELAYED RELEASE 250 MG TAB PO SCH (09:34)
--- NOTE | 2016-09-14 09:50 | HHI.PYPN ---
Subjective Remarks Patient seen and examined with counselor and nurse. Chart reviewed. Case discussed with nursing staff, counselor and recreation therapist in treatment team. Nursing staff notes that the patient is more upbeat and was socializing yesterday evening. On my examination today, the patient is sleeping in her room. She has her one-to-one present. She is easily awakened and does indeed seem less dysphoric. Command auditory hallucinations persist, somewhat attenuated as before. No active suicidal ideation. She has learned of her state psychiatric admission date and is pleased with this. No side effects from medications. Review of Systems Except as stated in HPI: all other systems reviewed are Neg Objective Alert: Yes [place]: Person, Place Mood: Calm Affect: Other (more reactive) Memory Intact: Comment (remains intact) Hallucinations: Auditory (CAH to self-injure, mild) Delusions: No Delusion Type: Other (no delusional material) Suicidal: Ideation (Denies SI) Homicidal: Ideation (No HI) Insight/Judgment Poor Remarks No motor abnormalities noted. Labs Labs reviewed. Vitals/IOs Vital Signs Date Time Temp Pulse Resp B/P Pulse Ox O2 Delivery O2 Flow Rate FiO2 09/14/16 05:52 98.2 86 16 110/56 98 Assessment & Plan Problem List: (1) Paranoid type schizophrenia, chronic state with acute exacerbation ICD Code: F20.0 (2) Depressive disorder ICD Code: F32.9 Assessment & Plan Continue current psychotropics as ordered. CBC for clozapine therapy ordered for tomorrow. Continue to monitor on the high acuity unit. Continue one-to- one for safety. Continue other medications and care as ordered. Justification for Cont. Inpt. Impairment in reality construction. Monitoring for impairments in safety. High risk for decompensation in a restrictive environment. Discharge Planning [facility] psychiatric hospital admission date as Tuesday, 09/17. Request HC Surrog/Guard Advoc?: Yes Moshe Mcclendon MD September 14, 2016 09:50
[2016-09-14 18:33] VITALS: BP 124/62; PULSE 117; RESP 17; TEMP 98.4; O2SAT 97
[2016-09-14] MEDS: cloZAPine 100 MG TAB PO SCH (21:14)
[2016-09-14] MEDS: diphenhydrAMINE HCL 50 MG CAP PO SCH (21:15)
[2016-09-14] MEDS: DIVALPROEX DR 500 MG TABEC PO SCH (21:15)
[2016-09-14] MEDS: MIRTAZAPINE 15 MG TAB PO SCH (21:15)
[2016-09-15 06:06] VITALS: BP 145/66; PULSE 86; RESP 18; TEMP 98; O2SAT 98
[2016-09-15] MEDS: BENZTROPINE MESYLATE 1 MG TAB PO SCH ×2 (08:51→20:37)
[2016-09-15] MEDS: DIVALPROEX SODIUM DELAYED RELEASE 250 MG TAB PO SCH (08:51)
[2016-09-15] MEDS: PARoxetine HCL 20 MG TAB PO SCH (08:51)
[2016-09-15] MEDS: DOCUSATE SODIUM 100 MG CAP PO SCH ×2 (08:51→20:30)
[2016-09-15] MEDS: POLYETHYLENE GLYCOL 17 GM PKG PO SCH (08:51)
[2016-09-15 10:53] LABS: BASOPHIL % 0.6 % (0.0-2.0); HEMATOCRIT 36.7 % (35.0-46.0); HEMO FLAGS DIFF FINAL; LYMPH % 31.6 % (9.0-44.0); LYMPHOCYTE # 2.2 TH/MM3 (1.0-4.8); MEAN CELL VOLUME 81.8 FL (80.0-100.0); MEAN CORPUSCULAR HEMOGLOBIN 26.1 PG (27.0-34.0); MEAN CORPUSCULAR HGB CONC 31.9 % (32.0-36.0); MONO % 10.9 % (0.0-8.0); NEUT % 56.9 % (16.0-70.0); PLATELET COUNT 247 TH/MM3 (150-450); RED BLOOD COUNT 4.48 MIL/MM3 (4.00-5.30); RED CELL DISTRIBUTION WIDTH 14.6 % (11.6-17.2)
--- NOTE | 2016-09-15 14:01 | HHI.PYPN ---
Subjective Remarks Patient seen and examined. Chart reviewed. Case discussed with nursing staff reports patient has been no behavioral problem. Patient remains on a one-to- one for safety. On my examination today, the patient reports that she is somewhat nervous about her impending transfer to the [facility]. She does think it will be a positive step for her but finds the prospect somewhat daunting nonetheless. We processed this nervousness. She does say that it would be positive for her because she will be closer to her mother who has cardiac issues and she will be able to visit with her more than she has been up till now. No suicidal or homicidal ideation. No side effects from medications. Review of Systems Except as stated in HPI: all other systems reviewed are Neg Objective Alert: Yes [place]: Person, Place Mood: Anxious Affect: Other (fairly full and reactive) Memory Intact: Comment (remains intact) Hallucinations: Auditory (CAH to self-injure, remains mild) Delusions: No Delusion Type: Other (no delusional material) Suicidal: Ideation (no SI) Homicidal: Ideation (No HI) Insight/Judgment Poor Remarks No motor abnormalities noted Labs Test 09/15/16 10:33 White Blood Count 7.0 TH/MM3 Red Blood Count 4.48 MIL/MM3 Hemoglobin 11.7 GM/DL Hematocrit 36.7 % Mean Corpuscular Volume 81.8 FL Mean Corpuscular Hemoglobin 26.1 PG Mean Corpuscular Hemoglobin 31.9 % Concent Red Cell Distribution Width 14.6 % Platelet Count 247 TH/MM3 Mean Platelet Volume 8.6 FL Neutrophils (%) (Auto) 56.9 % Lymphocytes (%) (Auto) 31.6 % Monocytes (%) (Auto) 10.9 % Eosinophils (%) (Auto) 0.0 % Basophils (%) (Auto) 0.6 % Neutrophils # (Auto) 4.0 TH/MM3 Lymphocytes # (Auto) 2.2 TH/MM3 Monocytes # (Auto) 0.8 TH/MM3 Eosinophils # (Auto) 0.0 TH/MM3 Basophils # (Auto) 0.0 TH/MM3 CBC Comment DIFF FINAL Differential Comment Labs reviewed. ANC remains adequate for clozapine therapy. Vitals/IOs Vital Signs Date Time Temp Pulse Resp B/P Pulse Ox O2 Delivery O2 Flow Rate FiO2 09/15/16 06:06 98.0 86 18 145/66 98 Assessment & Plan Problem List: (1) Paranoid type schizophrenia, chronic state with acute exacerbation ICD Code: F20.0 (2) Depressive disorder ICD Code: F32.9 Assessment & Plan Continue current psychotropic medications as ordered. I have discussed with patient and we will order Geodon 20 mg IM for the morning of transfer per patient preference, as this has helped to calm her in the past. Continue 1:1 for safety. Continue other medications and care as ordered. Justification for Cont. Inpt. Impairment in safety. High risk for decompensation in a less restrictive environment. Discharge Planning [facility] psychiatric hospital admission date 09/17. Request HC Surrog/Guard Advoc?: Yes Moshe Mcclendon MD September 15, 2016 14:01
[2016-09-15 17:18] VITALS: BP 107/66; PULSE 103; RESP 18; TEMP 98.3; O2SAT 98
[2016-09-15] MEDS: MIRTAZAPINE 15 MG TAB PO SCH (20:29)
[2016-09-15] MEDS: DIVALPROEX DR 500 MG TABEC PO SCH (20:29)
[2016-09-15] MEDS: diphenhydrAMINE HCL 50 MG CAP PO SCH (20:29)
[2016-09-15] MEDS: cloZAPine 100 MG TAB PO SCH (20:30)
[2016-09-16 06:09] VITALS: BP 113/65; PULSE 89; RESP 18; TEMP 98.9; O2SAT 98
[2016-09-16] MEDS: POLYETHYLENE GLYCOL 17 GM PKG PO SCH (09:00)
[2016-09-16] MEDS: DOCUSATE SODIUM 100 MG CAP PO SCH ×2 (09:00→21:11)
[2016-09-16] MEDS: PARoxetine HCL 20 MG TAB PO SCH (09:06)
[2016-09-16] MEDS: BENZTROPINE MESYLATE 1 MG TAB PO SCH ×2 (09:06→21:12)
[2016-09-16] MEDS: DIVALPROEX SODIUM DELAYED RELEASE 250 MG TAB PO SCH (09:06)
[2016-09-16] MEDS ORDERED: CLOZ100 PO (10:34)
[2016-09-16] MEDS ORDERED: DIVA500T PO (10:34)
[2016-09-16] MEDS ORDERED: DIPH50CA PO (10:34)
[2016-09-16] MEDS ORDERED: MIRTA15 PO (10:34)
[2016-09-16] MEDS ORDERED: DOCU1CAP39 PO (10:34)
[2016-09-16] MEDS ORDERED: PARO20TA2 PO (10:34)
[2016-09-16] MEDS ORDERED: MIRA33504 PO (10:34)
[2016-09-16] MEDS ORDERED: BENZ1TAB PO (10:34)
[2016-09-16] MEDS ORDERED: ARIP1TAB7 PO (10:34)
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
[2016-09-16 16:45] VITALS: BP 126/70; PULSE 116; RESP 17; TEMP 99.5; O2SAT 98
[2016-09-16] MEDS: DIVALPROEX DR 500 MG TABEC PO SCH (21:11)
[2016-09-16] MEDS: MIRTAZAPINE 15 MG TAB PO SCH (21:11)
[2016-09-16] MEDS: diphenhydrAMINE HCL 50 MG CAP PO SCH (21:11)
[2016-09-16] MEDS: cloZAPine 100 MG TAB PO SCH (21:12)
[2016-09-17] MEDS ORDERED: ZIPRASIDONE MESYLATE 20 MG VIAL IM SCH (06:00)
[2016-09-17 06:09] VITALS: BP 115/68; PULSE 89; RESP 16; TEMP 98.2; O2SAT 99
[2016-09-17] MEDS: LORazepam 1 MG TAB PO PRN (06:14)
[2016-09-17] MEDS: PARoxetine HCL 20 MG TAB PO SCH (06:45)
[2016-09-17] MEDS: DIVALPROEX SODIUM DELAYED RELEASE 250 MG TAB PO SCH (06:45)
[2016-09-17] MEDS: POLYETHYLENE GLYCOL 17 GM PKG PO SCH (06:46)
[2016-09-17] MEDS: DOCUSATE SODIUM 100 MG CAP PO SCH (06:46)
[2016-09-17] MEDS: BENZTROPINE MESYLATE 1 MG TAB PO SCH (06:46)
== END 2016-09-17 07:45 | DRG 885 ==
LOC: NEPJ 09:21 → NEDA 15:30 → H270 16:48 → H4EA 08-19 17:38 → H270 08-23 15:45
PROVIDERS: ADMIT Psychiatry & Neurology Psychiatry; ATTEND Psychiatry & Neurology Psychiatry
DX: F20.0 Paranoid schizophrenia (principal); I42.9 Cardiomyopathy, unspecified; R45.851 Suicidal ideations; K11.7 Disturbances of salivary secretion; S50.811A Abrasion of right forearm, initial encounter; S00.03XA Contusion of scalp, initial encounter; R00.0 Tachycardia, unspecified; S00.81XA Abrasion of other part of head, initial encounter; R10.13 Epigastric pain; M25.462 Effusion, left knee; F32.9 Major depressive disorder, single episode, unspecified; M65.9 Synovitis and tenosynovitis, unspecified; M94.262 Chondromalacia, left knee; K59.00 Constipation, unspecified; F60.9 Personality disorder, unspecified; F17.210 Nicotine dependence, cigarettes, uncomplicated; X83.8XXA Intentional self-harm by other specified means, initial encounter; Z62.810 Personal history of physical and sexual abuse in childhood; Z78.1 Physical restraint status; Z91.5 Personal history of self-harm
CPT/HCPCS: 70450; 73560; 73564; 73721; 80048; 80053; 80061; 80076; 80159; 80164; 80307; 82140; 83036; 84439; 84443; 84703; 85007; 85014; 85018; 85025; 85027; 85652; 86140; 93005; 93306; 96372; G0480; J1200; J1630; J1885; J2060; J3486; L1810; Q0163